=== PATIENT | female | born 1950 | race Caucasian/White ===

== ENCOUNTER → 2017-07-30 | Outpatient (CLI) | payer MEDICARE, OTHER ==
--- NOTE | 2017-07-30 13:37 | US ---
EXAMINATION TYPE: US kidneys/renal and bladder DATE OF EXAM: 07/30/2017 COMPARISON: CT February 23, 2011 and US CLINICAL HISTORY: R10.9 Alberto.flank pain, R10.9 pelvic pain. Pt states previous renal cysts, follow-up EXAM MEASUREMENTS: Right Kidney: 10.2 x 4.5 x 4.6 cm Left Kidney: 11.9 x 5.6 x 5.5 cm Right Kidney: Cortical thinning, Multicystic with largest cyst mid/ parapelvic= 1.5 x 1.0 x 1.0 cm Left Kidney: Cortical thinning/ multiple parapelvic cysts, largest= 4.2 x 2.5 x 3.5 cm Bladder: wnl Bilateral Jets seen: Yes There is no evidence for hydronephrosis at this point in time. No nephrolithiasis is seen. There are few new small simple appearing cyst centrally in the right kidney. The urinary bladder is anechoic. Bilateral ureteral jets are seen. Larger central parapelvic cyst left kidney are redemonstrated anabel icking hydronephrosis. IMPRESSION: Prominent Central left parapelvic cysts redemonstrated. No hydronephrosis is felt present bilaterally .
--- NOTE | 2017-07-30 13:42 | US ---
EXAMINATION TYPE: US pelvic complete DATE OF EXAM: 07/30/2017 COMPARISON: CT abdomen and pelvis February 23, 2011 CLINICAL HISTORY: R10.9 Alberto.flank pain, R10.9 pelvic pain. Previous ovarian cyst/ pt states bloating, pt not HRT's TECHNIQUE: Transabdominal (TA). Transabdominal sonographic images of the pelvis were acquired. Pt d id not want TV at this time Date of LMP: 20+ years ago EXAM MEASUREMENTS: Uterus: 7.0 x 3.3 x 4.3 cm Endometrial Stripe: 0.5 cm Right Ovary: 2.2 x 1.2 x 1.3 cm Left Ovary: 4.2 x 2.6 x 3.9 cm 1. Uterus: Anteverted Heterogeneous 2. Endometrium: wnl 3. Right Ovary: wnl 4. Left Ovary: Cyst= 3.0 x 2.3 x 2.7 cm 5. Bilateral Adnexa: wnl 6. Posterior cul-de-sac: wnl IMPRESSION: There is 3.0 cm simple appearing cyst left ovary identified. This is larger in size versu s prior CT. This is abnormal finding in postmenopausal female though almost certainly benign a cystic neoplasm cannot be excluded. Consider gynecology oncology referral.
== END | disposition home or self-care (01) ==
LOC: RADUSWWP 12:48
PROVIDERS: ATTEND Internal Medicine
DX: N83.292 Other ovarian cyst, left side (principal); N28.1 Cyst of kidney, acquired
CPT/HCPCS: 76770; 76856

== ENCOUNTER → 2017-08-31 | Outpatient (CLI) | payer MEDICARE, OTHER ==
--- NOTE | 2017-08-31 10:39 | XR ---
EXAM TYPE: LUMBAR SPINE X RAY SERIES COMPARISON: NONE HISTORY: Pain TECHNIQUE: 4 views are submitted. FINDINGS: Alignment is anatomic. The pedicles are intact. The transverse processes are intact. There is no s pondylolysis or spondylolisthesis. Hypertrophic and degenerative disc disease seen at virtually all levels with grade 1 anterolisthesis L4 on L5. Facet arthropathy marked at L4-5 and L5-S1. IMPRESSION: 1. Multilevel degenerative disc disease and facet arthropathy with grade 1 anterolisthesis L4 on L5. Recommend follow-up MRI.
== END | disposition home or self-care (01) ==
LOC: RADXRMAIN 10:08
PROVIDERS: ATTEND Internal Medicine
DX: M43.16 Spondylolisthesis, lumbar region (principal); M51.36 Other intervertebral disc degeneration, lumbar region; M46.96 Unspecified inflammatory spondylopathy, lumbar region
CPT/HCPCS: 72110

== ENCOUNTER → 2017-09-21 | Outpatient (CLI) | payer MEDICARE, OTHER ==
--- NOTE | 2017-09-21 15:21 | US ---
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 Hx of ectopic i n right tube with removal. Hx of left ovarian cyst. 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 Uterus: Anteverted Slightly heterogenous 2. Endometrium: wnl 3. Right Ovary: wnl 4. Left Ovary: Cystic appearing lesion = 2.9 x 2.0 x 1.8 cm 5. Bilateral Adnexa: wnl 6. Posterior cul-de-sac: no free fluid IMPRESSION: There is stable appearing 2.9 cm simple appearing cyst within left ovary. No new suspicio us lesions are seen.
--- NOTE | 2017-09-21 15:56 | US ---
EXAMINATION TYPE: US kidneys/renal and bladder DATE OF EXAM: 09/21/2017 COMPARISON: CT abdomen pelvis February 23, 2011 CLINICAL HISTORY: R10.9 Unspecified abdominal pain, R11.10 Vomiting,N83.0 Cyst. Hx of renal cysts EXAM MEASUREMENTS: Right Kidney: 10.4 x 4.5 x 4.5 cm Left Kidney: 11.0 x 5.8 x 5.8 cm Right Kidney:. Left Kidney: Multiple parapelvic cysts. Hydronephrosis vs septated parapelvic cyst at hilum = 4.8 x 3.5 x 4.1 cm Bladder: Distended, wnl as visualized Bilateral Jets seen There is no evidence for hydronephrosis at this point in time. No nephrolithiasis is seen. No himanshu s are identified. The urinary bladder is anechoic. Bilateral ureteral jets are seen. Increased cortical echogenicity in right kidney is present. There is extrarenal pelvis in right kidne y marked by technologist. Increased cortical echogenicity left kidney is identified. Prominent parape lvic cyst centrally in left kidney are again seen. Difficult to exclude left-sided hydronephrosis on background of central parapelvic cysts as there appears to be some calyceal involvement or atypical e longation. IMPRESSION: Cortical thinning bilaterally. No right-sided hydronephrosis. Probable parapelvic cysts left kidney, cannot exclude new left-sided hydronephrosis. Consider nuclear medicine functional study evaluation t o better evaluate.
== END | disposition home or self-care (01) ==
LOC: RADUSWWP 13:55
PROVIDERS: ATTEND Internal Medicine
DX: N83.202 Unspecified ovarian cyst, left side (principal); N13.30 Unspecified hydronephrosis; N28.89 Other specified disorders of kidney and ureter
CPT/HCPCS: 76770; 76856

== ENCOUNTER → 2017-10-01 | Outpatient (CLI) | payer MEDICARE, OTHER ==
--- NOTE | 2017-10-02 00:07 | MR ---
EXAMINATION TYPE: MR lumbar spine wo con DATE OF EXAM: 10/01/2017 COMPARISON: NONE HISTORY: Low back pain for years, getting worse TECHNIQUE: Multiplanar, multisequence images of the lumbar spine were acquired. Multiplanar multiecho imaging of the lumbar spine was performed with no contrast. Lumbar vertebra have normal alignment. There is slight narrowing of the disc spaces. There is no comp ression fracture. I see no focal bone destruction. There is no spinal stenosis. There are numerous re nal parapelvic cysts. There is no lumbar paraspinal mass. There is facet arthropathy with neural fora craig narrowing on the right side at the L5-S1. The visualized sacroiliac joints appear intact. I see no focal bone destruction. There are small post erior disc bulges at L2-3 L4-5 and L5-S1 without significant compromise of the spinal canal. There is developmentally adequate canal. IMPRESSION: Multilevel spondylosis. Mild right-sided L5-S1 neural foraminal impingement. No fracture.
== END | disposition home or self-care (01) ==
LOC: RADMRIMAIN 19:21
PROVIDERS: ATTEND Internal Medicine
DX: M47.816 Spondylosis without myelopathy or radiculopathy, lumbar region (principal)
CPT/HCPCS: 72148

== ENCOUNTER → 2017-11-22 | Outpatient (CLI) | payer MEDICARE, OTHER ==
--- NOTE | 2017-11-22 10:00 | US ---
EXAMINATION TYPE: US kidneys/renal and bladder DATE OF EXAM: 11/22/2017 COMPARISON: 09/21/2017 CLINICAL HISTORY: N13.30 HYDRONEPHROSIS LT SIDE. f/u previous exam, h/o renal cysts and or hydronephr osis EXAM MEASUREMENTS: Right Kidney: 11.9 x 4.5 x 5.0 cm Left Kidney: 11.7 x 5.3 x 5.9 cm Right Kidney: multiple cystic areas noted, largest was 2.8cm at renal pelvis which is stable from pre vious exam Left Kidney: appearance of hydronephrosis, unable to discern if anechoic area were multiple parapelvi c cysts as a previous exam noted, versus moderate hydronephrosis that is stable from previous exam Bladder: wnl Bilateral Jets seen: yes There is no evidence for hydronephrosis at this point in time. No nephrolithiasis is seen. No himanshu s are identified. The urinary bladder is anechoic. Bilateral ureteral jets are seen. IMPRESSION: 1. Left-sided parapelvic cysts versus hydronephrosis. Consider CT for further evaluation. 2. Multiple simple cyst right kidney.
== END | disposition home or self-care (01) ==
LOC: RADUSWWP 08:32
PROVIDERS: ATTEND Internal Medicine
DX: N28.1 Cyst of kidney, acquired (principal)
CPT/HCPCS: 76770

== ENCOUNTER → 2017-12-17 | Outpatient (CLI) | payer MEDICARE, OTHER ==
--- NOTE | 2017-12-18 13:45 | MM ---
Reason for exam: screening (asymptomatic). Last mammogram was performed 1 year and 6 months ago. History: Patient is postmenopausal. Family history of premenopausal breast cancer in sister at age 20 and breast cancer in paternal aunt at age 60. Benign US right guided mammotome of the right breast, September 06, 2007. Benign excisional biopsy of the right breast, 1989. Took hormonal contraceptives for 5 years beginning at age 19. Physical Findings: A clinical breast exam by your physician is recommended on an annual basis and results should be correlated with mammographic findings. MG 3D Screening Mammo W/Cad Bilateral CC and MLO view(s) were taken. Prior study comparison: June 09, 2016, mammogram, performed at [place]. May 26, 2015, mammogram, performed at [place]. The breast tissue is heterogeneously dense. This may lower the sensitivity of mammography. There is no discrete abnormality. No significant changes when compared with prior studies. ASSESSMENT: Benign, BI-RAD 2 RECOMMENDATION: Routine screening mammogram of both breasts in 1 year.
== END | disposition home or self-care (01) ==
LOC: RADMAMWWP 07:03
PROVIDERS: ATTEND Internal Medicine
DX: Z12.31 Encounter for screening mammogram for malignant neoplasm of breast (principal)
CPT/HCPCS: 77063; 77067

== ENCOUNTER → 2018-02-05 | Outpatient (CLI) | payer MEDICARE, OTHER ==
--- NOTE | 2018-02-05 22:18 | MR ---
EXAMINATION TYPE: MR kidney wo/w con DATE OF EXAM: 02/05/2018 COMPARISON: CT abdomen and pelvis February 23, 2011. Renal ultrasound November 22, 2017 and older ultras ound studies HISTORY: Hydronephrosis CONTRAST: Standard multiplanar, multisequence MRI departmental protocol utilizing 7.5 mL intravenous Gadavist g adolinium contrast. Imaging is performed of the abdomen focusing on bilateral kidneys. FINDINGS: Kidneys: Correlating with 2011 CT there are prominent parapelvic cysts centrally in the left kidney m imicking left-sided hydronephrosis. No definitive calyceal dilatation is seen to suggest hydronephros is. No hydroureter is present. Right kidney shows fullness of right renal pelvis with more prominent central parapelvic cysts on cur rent study versus 2011 CT. Dynamic axial images show excretion without calyceal dilatation or hydrone phrosis. There is a 8 mm simple appearing cyst upper pole of the right kidney, image 28. There is no hydroureter. Other: Lung bases remain grossly clear. The liver, gallbladder, spleen, pancreas, and both adrenal gl ands are normal in size and appear grossly unremarkable. There is stable moderate size fat-containing umbilical hernia. There is no suspicious small or large bowel dilatation. No suspicious abdominal fl uid collection or adenopathy is seen. Osseous structures are intact. IMPRESSION: Prominent left-sided parapelvic cysts are redemonstrated not significantly changed from 2011 CT. No h ydronephrosis is evident bilaterally. Central parapelvic cyst right kidney are more prominent from [address] No suspicious solid or cystic renal mass is noted.
== END | disposition home or self-care (01) ==
LOC: RADMRIMAIN 18:16
PROVIDERS: ATTEND Internal Medicine
DX: N94.89 Other specified conditions associated with female genital organs and menstrual cycle (principal)
CPT/HCPCS: 82565; 74183; 36415; A9581

== ENCOUNTER → 2018-02-13 | Outpatient (CLI) | payer MEDICARE, OTHER ==
--- NOTE | 2018-02-13 13:15 | US ---
EXAMINATION TYPE: US pelvic complete DATE OF EXAM: 02/13/2018 COMPARISON: US 09/21/2017 CLINICAL HISTORY: N83.20 Previous left ovarian cyst. F/U prev ovarian cyst TECHNIQUE: Transabdominal (TA). Transabdominal sonographic images of the pelvis were acquired. Date of LMP: 20+ yrs ago EXAM MEASUREMENTS: Uterus: 7.1 x 3.0 x 3.6 cm Endometrial Stripe: 0.6 cm Right Ovary: 2.2 x 1.9 x 1.6 cm Left Ovary: 4.0 x 3.6 x 2.8 cm 1. Uterus: Anteverted Heterogeneous 2. Endometrium: wnl 3. Right Ovary: wnl 4. Left Ovary: Cyst as seen on previous, slightly larger in size= 2.8 x 2.6 x 2.4 cm. Previous rajan urement 2.9 x 2.0 x 1.8 cm. Correlation with laboratory tests is recommended. 5. Bilateral Adnexa: wnl 6. Posterior cul-de-sac: wnl Left ovarian cyst was seen on previous IMPRESSION: 1. Enlarging left ovarian cyst. Correlation with laboratory results is recommended.
== END ==
LOC: RADUSWWP 12:08
PROVIDERS: ATTEND Obstetrics & Gynecology
DX: N83.202 Unspecified ovarian cyst, left side (principal)
CPT/HCPCS: 36415; 76856; 86304

== ENCOUNTER → 2018-03-05 | Outpatient (CLI) | payer MEDICARE, OTHER ==
--- NOTE | 2018-03-06 11:49 | BD ---
EXAMINATION TYPE: Axial Bone Density DATE OF EXAM: 03/05/2018 COMPARISON: 2006 CLINICAL HISTORY: Postmenopausal female. Osteoporosis screening. Height: 5 ft 5 in Weight: 189 FRAX RISK QUESTIONS: History of Fracture in Adulthood: YES Secondary Osteoporosis: Rheumatoid Arthritis: YES RISK FACTORS HISTORY OF: Active: YES Postmenopausal woman: AGE 49 Lost more than 2 inches in height since high school: YES MEDICATIONS: Thyroid Medications: YES Which medication: SYNTHROID How Lon YEARS Additional Medications: LITHIUM, SYNTHROID ,VIT D Additional History: EXAM MEASUREMENTS: Bone mineral densitometry was performed using the [employer] System. Bone mineral density as measured about the Lumbar spine is: ----- L1-L4(G/cm2): 1.063 T Score Values are as follows: ----- L2: -1.5 ----- L3: 0.8 ----- L4: -1.8 ----- L1-L4: -1.0 Bone mineral density has: INCREASED 1.5 % since study of: 2006 Bone mineral density about the R hip (g/cm2): 0.844 Bone mineral density about the L hip (g/cm2): 0.814 T Score values are as follows: -----R Neck: -1.4 -----L Neck: -1.6 -----R Total: -2.0 -----L Total: -1.5 Bone mineral density has: DECREASED -4.1 % since study of: 2006 IMPRESSION: Osteopenia (T Score between -2.5 and -1). There is slightly increased risk of fracture and the patient may be considered for treatment. Re-Screen 2-5 years. NOTE: T-SCORE=SD OF THE YOUNG ADULT MEAN.
== END | disposition home or self-care (01) ==
LOC: RADBDWWP 14:44
PROVIDERS: ATTEND Obstetrics & Gynecology
DX: M85.89 Other specified disorders of bone density and structure, multiple sites (principal)
CPT/HCPCS: 77080

== ENCOUNTER → 2018-04-15 | Outpatient (CLI) | payer MEDICARE, OTHER ==
[2018-04-15 08:42] LABS: Basophils % (A) 1 %; Eosinophils # (A) 0.2 k/uL (0-0.7); Eosinophils % (A) 3 %; HCT 42.3 % (34.0-46.0); HGB 13.5 gm/dL (11.4-16.0); Lymphocytes # (A) 1.1 k/uL (1.0-4.8); Lymphocytes % (A) 21 %; MCH 29.5 pg (25.0-35.0); MCHC 31.9 g/dL (31.0-37.0); MCV 92.3 fL (80.0-100.0); Mean Platelet Volume 8.6; Monocytes # (A) 0.2 k/uL (0-1.0); Monocytes % (A) 4 %; Neutrophils # (A) 3.5 k/uL (1.3-7.7); Neutrophils % (A) 70 %; Platelet Count 166 k/uL (150-450); RBC 4.59 m/uL (3.80-5.40); RDW 13.2 % (11.5-15.5); WBC 5.1 k/uL (3.8-10.6)
[2018-04-15 08:47] LABS: Calcium 9.7 mg/dL (8.4-10.2)
== END | disposition home or self-care (01) ==
LOC: LABPAT 07:52
PROVIDERS: ATTEND Obstetrics & Gynecology
DX: Z01.818 Encounter for other preprocedural examination (principal); Z01.812 Encounter for preprocedural laboratory examination
CPT/HCPCS: 36415; 80048; 85025; 86850; 86900; 86901; 93005

== ENCOUNTER 2018-04-25 05:46 | Day surgery (SDC) | payer MEDICARE, OTHER ==
[2018-04-15 14:52] VITALS: BMI 29.9
--- NOTE | 2018-04-24 20:46 | P.HPOB ---
History of Present Illness H&P Date: 04/24/18 Chief Complaint: Pelvic pain and ovarian cyst Jenni is a 67-year-old female with a persistent left ovarian cyst, she reports that she always has pain on the side of the cyst despite fact the cysts is only approximately 2-2.5 cm it has enlarged slightly since her previous ultrasound and with her having significant pains the decision to move forward with a robotic-assisted laparoscopic hysterectomy with bilateral salpingo-oophorectomy has been made. Risks/benefits also alternatives to this procedure were discussed with the patient in detail and all questions were answered for her prior to proceeding to the operative room. Risks did include but were not limited to bleeding, infection, damage to bladder or bowel, vascular injuries, nerve injuries, ureteral damage. It is noted that while her CA-125 level is normal it was very clear to her that I cannot be 100% certain that there isn't ovarian cancer present and that is certainly a risk. It was explained her that should there be ovarian cancer present it is unlikely we would complete the surgery but would most likely obtain biopsies and refer her to a JAVA LEAD ENGINEER oncologist. I did offer referral to JAVA LEAD ENGINEER oncologist alternatives to be taking her to surgery however she declined. Her primary care provider also provided surgical clearance for. Past Medical History Past Medical History: Osteoarthritis (OA), Thyroid Disorder Additional Past Medical History / Comment(s): Constipation. History of Any Multi-Drug Resistant Organisms: None Reported Additional Past Surgical History / Comment(s): Tubal . Past Anesthesia/Blood Transfusion Reactions: No Reported Reaction Past Psychological History: Anxiety, Depression Smoking Status: Never smoker Past Alcohol Use History: None Reported Past Drug Use History: None Reported - Past Family History Brother(s) Family Medical History: Cancer Sister(s) Family Medical History: Cancer Medications and Allergies Home Medications Medication Instructions Recorded Confirmed Type Levothyroxine Sodium [Synthroid] 75 mcg PO QAM 04/15/18 04/15/18 History [place] Carbonate 300 mg PO QAM 04/15/18 04/15/18 History [place] Carbonate 600 mg PO HS 04/15/18 04/15/18 History Allergies Allergy/AdvReac Type Severity Reaction Status Date / Time aspirin Allergy Itching Verified 04/15/18 14:53 codeine Allergy See Comment Verified 04/15/18 14:53 Exam Osteopathic Statement: *. No significant issues noted on an osteopathic structural exam other than those noted in the History and Physical/Consult. - OBG Physical Exam Breast: both: normal (no masses) Abdomen: bowel sounds normal, no diffuse tenderness, no bruit present, no guarding noted, no hepatomegaly, no splenomegaly, no mass Vulva: both: normal Vagina: normal moisture, no discharge Cervix: no lesion, no discharge Uterus: normal size, normal contour Adnexa: both: normal Anus/Rectum: normal perianal skin, no rectal mass, no hemorrhoids, heme negative
[~2018-04-25 05:46] MED LIST: ceFAZolin IN SWFI 2 GM/20 ML SYRINGE IVP ONE
[2018-04-25] MEDS ORDERED: ONDANSETRON 4 MG/2 ML VIAL IVP ONE (06:06)
[2018-04-25] MEDS ORDERED: SCOPOLAMINE 1.5MG/72HR PATCH TRANSDERM ONE (06:06)
[2018-04-25] MEDS ORDERED: LACTATED RINGERS 1,000 ML IV SCH (06:06)
[2018-04-25] MEDS ORDERED: LIDOCAINE 1% 20 ML VIAL (10MG/ML) FOR IV START INTRADERMA PRN (06:06)
[2018-04-25] MEDS ORDERED: DEXAMETHASONE SOD PHOSPHATE 10 MG/ML 1 ML VIAL IV ONE (06:06)
[2018-04-25] MEDS ORDERED: LACTATED RINGERS 1,000 ML IV ONE ×2 (06:19→08:51)
[2018-04-25] MEDS ORDERED: LIDOCAINE 1% INJ 10MG/ML (20 ML MDV) ONE (07:33)
[2018-04-25] MEDS ORDERED: NEOSTIGMINE 1 MG/ML 10 ML VIAL ONE (07:33)
[2018-04-25] MEDS ORDERED: MIDAZOLAM 2 MG/2 ML VIAL ONE (07:33)
[2018-04-25] MEDS ORDERED: GLYCOPYRROLATE 0.2 MG/ML 2 ML VIAL ONE (07:33)
[2018-04-25] MEDS ORDERED: ROCURONIUM BROMIDE 10 MG/ML 10 ML VIAL IV ONE (07:33)
[2018-04-25] MEDS ORDERED: ePHEDrine SULFATE/0.9% NACL/PF 50 MG/5 ML SYRINGE IV ONE (07:33)
[2018-04-25] MEDS ORDERED: PROPOFOL 10 MG/ML 20 ML VIAL IV ONE (07:33)
[2018-04-25] MEDS ORDERED: fentaNYL (PF) 50 MCG/ML 2 ML AMP ONE (07:33)
[2018-04-25] MEDS ORDERED: SUCCINYLCHOLINE CHLORIDE 100 MG/5 ML SYR IV ONE (07:33)
[2018-04-25] MEDS ORDERED: BUPIVACAINE (PF) 0.25% 30 ML VIAL SQ ONE ×2 (07:56→08:53)
[2018-04-25] MEDS ORDERED: Acetaminophen-Codeine 300-30mg TAB PO PRN ×2 (09:07)
[2018-04-25] MEDS ORDERED: SIMETHICONE 80 MG CHEWABLE PO PRN (09:07)
[2018-04-25] MEDS ORDERED: diphenhydrAMINE 25 MG CAP PO PRN (09:07)
[2018-04-25] MEDS ORDERED: ONDANSETRON 4 MG/2 ML VIAL IVP PRN (09:07)
--- NOTE | 2018-04-25 09:14 | P.OP ---
Date of Procedure: 04/25/18 Preoperative Diagnosis: Pelvic pain and ovarian cyst Postoperative Diagnosis: Same Procedure(s) Performed: Robotic-assisted laparoscopic hysterectomy with bilateral salpingo-oophorectomy Anesthesia: ALEJANDRINA Surgeon: Michael Kyle Weight Loss Consultant #1: Adelina Webster Estimated Blood Loss (ml): 10 IV fluids (ml): 600 Urine output (ml): 350 Pathology: other (Uterus, cervix, fallopian tubes, ovaries) Condition: stable Disposition: floor Operative Findings: Tissue pathology pending Description of Procedure: Patient was taken to the operating suite where a general anesthetic was found be adequate. She was prepped and draped in the normal sterile fashion and placed in the dorsal lithotomy position. Initially a speculum was inserted into the vagina and the anterior lip of cervix identified and grasped with a single-tooth tenaculum. Uterus was then sounded to 8 cm and cup size was 2.5 cm Michaela manipulator was then inserted without difficulty with sutures placed at 3 and 9 for assistance in removal. Once Michaela was positioned a Franklin catheter was placed and gloves were changed. Attention was then turned to the abdominal portion of the procedure where 2 mL of quarter percent Marcaine was injected periumbilically. Through this injected anesthetic a 5 mm skin incision was made and through this incision under direct visualization with an optical trocar and sleeve the camera was inserted. Once peritoneal placement was assured gas was allowed to fully insufflate the abdomen and patient was then placed in steep Trendelenburg position. 2 lateral ports were then placed 10 cm lateral to the umbilicus these were through 8 mm skin incisions and da Radhika ports and sleeves were inserted. Once this was accomplished 81 cm incision was made between the left lateral and the medial ports slightly superior to the medial port. A 1 cm trocar and sleeve were inserted and then the camera port was exchanged for robotic port. Robot was then brought in and docked and all laparoscopic equipment was removed. Once the robot was fully docked I did break scrub and go to the console with a scissor and the one arm and a [place] grasper in the 2 arm uterus was elevated and tipped to the left to the right side and the infundibulopelvic ligament was identified cauterized and transected and then the mesosalpinx/paraovarian tissues were cauterized and transected all the way to the round ligament. Round ligament was then and anterior posterior leafs the broad ligament were developed. Cauterization of the uterine vascularity on the left side was then performed and undermining of bladder flap was then done using the [place] undermining in the scissor to incise the tissue across face uterus bladder was then bluntly dissected out of the operative field. Once this was completed in a similar fashion the right side of the ovary and uterus were developed in a similar fashion. Once this was accomplished and the bladder was dissected fully out of the operative field the cup was identified and an anterior colpotomy was made once this was made moving in a counterclockwise fashion cheating head when necessary surgery to maintain excellent hemostasis we follow the couple around incising around the cervix into the vagina vagina until 3 and 60 was performed and the uterus and cervix and vagina were . Uterus was then brought into the vagina to maintain pneumoperitoneum. No bleeding is noted on any of the pedicles therefore instruments were removed exchanged for Tobias grasper and a make suture cut and using to OB lock suture the vaginal cuff was repaired in a running fashion. Once this was accomplished pelvis was irrigated and this fluid was then suctioned out no bleeding is noted. At this point robotic instruments were removed gas was allowed to expel from the abdomen and [address] deep [address] were provided. Dr. Webster and close the incision subcuticularly with 4- 0 Vicryl and I did do a cystoscopy with excellent flow noted from both ureteral jets. There is no blood noted in the bladder. Urine is clear. At the conclusion I did receive a phone call relating that there is some pink to the urine, however I suspect this is from replacement of the Franklin catheter as there was no bleeding during cystoscopy. Sponge, lap, needle counts all correct 2. Patient was then taken to the recovery room in stable and satisfactory condition.
[2018-04-25] MEDS: HYDROmorphone 1 MG/ML 1 ML SYRINGE IVP PRN ×2 (10:09→10:14)
[2018-04-25] MEDS: KETOROLAC 30 MG/ML 1 ML VIAL IVP PRN ×2 (17:34→23:19)
[2018-04-25 19:59] VITALS: RESP 16
[2018-04-25] MEDS ORDERED: SENNOSIDES-DOCUSATE SODIUM 1 EACH TAB PO SCH (21:00)
[2018-04-26 03:38] VITALS: BP 107/69; PULSE 70; TEMP 97.7
[2018-04-26] MEDS: KETOROLAC 30 MG/ML 1 ML VIAL IVP PRN (05:12)
[2018-04-26 07:10] LABS: Basophils % (A) 0 %; Eosinophils # (A) 0.1 k/uL (0-0.7); Eosinophils % (A) 0 %; HCT 37.9 % (34.0-46.0); HGB 12.4 gm/dL (11.4-16.0); Lymphocytes # (A) 1.6 k/uL (1.0-4.8); Lymphocytes % (A) 14 %; MCHC 32.8 g/dL (31.0-37.0); MCV 91.7 fL (80.0-100.0); Mean Platelet Volume 8.6; Monocytes # (A) 0.5 k/uL (0-1.0); Monocytes % (A) 4 %; Neutrophils # (A) 9.2 k/uL (1.3-7.7); Neutrophils % (A) 80 %; Platelet Count 156 k/uL (150-450); RBC 4.13 m/uL (3.80-5.40); RDW 13.2 % (11.5-15.5); WBC 11.5 k/uL (3.8-10.6)
--- NOTE | 2018-04-26 09:02 | P.DS ---
Providers Expected date of discharge: 04/26/18 Attending physician: Michael Kyle Primary care physician: [facility] Course: She'll is doing very well postop day 1. She is ambulating, voiding and she is tolerating her diet. She voices no complaints and is requesting discharge to home. A prescription for high-dose Motrin has been sent to the pharmacy as she does not want any narcotics to go home with her. Vital signs are stable and afebrile. Heart regular, lungs clear, extremities are without pain. Abdomen is soft positive bowel sounds are noted in her incisions are intact. Assessment postop day 1. Plan discharged home follow up with me in 1 week. All other questions are answered for her and she is aware to have complete pelvic rest for next 6-8 weeks. Patient Condition at Discharge: Good Plan - Discharge Summary Discharge Rx Participant: No New Discharge Prescriptions: New Ibuprofen [Motrin] 600 mg PO Q6HR PRN #30 tab PRN Reason: Pain No Action Levothyroxine Sodium [Synthroid] 75 mcg PO QAM [place] Carbonate 300 mg PO QAM [place] Carbonate 600 mg PO HS Discharge Medication List Levothyroxine Sodium [Synthroid] 75 mcg PO QAM 04/15/18 [History] [place] Carbonate 300 mg PO QAM 04/15/18 [History] [place] Carbonate 600 mg PO HS 04/15/18 [History] Ibuprofen [Motrin] 600 mg PO Q6HR PRN #30 tab 04/26/18 [Rx] Follow up Appointment(s)/Referral(s): Michael Kyle DO [Doctor of Osteopathic Medicine] - 1 Week Activity/Diet/Wound Care/Special Instructions: No heavy lifting, the stairs and driving, and pelvic rest. If any high temperatures, heavy bleeding, or severe pain call my office Discharge Disposition: HOME SELF-CARE
== END 2018-04-26 09:55 | disposition home or self-care (01) ==
LOC: OR 05:46 → 4FBP 09:11 → OR 04-26 09:55
PROVIDERS: ATTEND Obstetrics & Gynecology
DX: R10.2 Pelvic and perineal pain (principal); N83.292 Other ovarian cyst, left side; F32.9 Major depressive disorder, single episode, unspecified; F31.9 Bipolar disorder, unspecified; E55.9 Vitamin D deficiency, unspecified; M85.80 Other specified disorders of bone density and structure, unspecified site; K21.9 Gastro-esophageal reflux disease without esophagitis; E03.9 Hypothyroidism, unspecified; Z80.3 Family history of malignant neoplasm of breast; Z79.890 Hormone replacement therapy; Z79.899 Other long term (current) drug therapy; Z88.6 Allergy status to analgesic agent; Z88.5 Allergy status to narcotic agent
CPT/HCPCS: 58552; 85025; 88307; J2250; J1100; J2710; J2405; J2001; J3010; J1885 ×2; J1170; J0330; J2704; J0690; 86850; 86900; 86901

== ENCOUNTER → 2019-01-10 | Outpatient (CLI) | payer MEDICARE, OTHER ==
--- NOTE | 2019-01-14 09:26 | MM ---
Reason for exam: screening (asymptomatic). Last mammogram was performed 1 year and 1 month ago. History: Patient is postmenopausal. Family history of premenopausal breast cancer in sister at age 20 and breast cancer in paternal aunt at age 60. Benign US right guided mammotome of the right breast, September 06, 2007. Benign excisional biopsy of the right breast, 1989. Took hormonal contraceptives for 5 years beginning at age 19. Physical Findings: A clinical breast exam by your physician is recommended on an annual basis and results should be correlated with mammographic findings. MG 3D Screening Mammo W/Cad Bilateral CC and MLO view(s) were taken. Prior study comparison: December 17, 2017, bilateral MG 3d screening mammo w/cad. June 09, 2016, mammogram, performed at [place]. The breast tissue is heterogeneously dense. This may lower the sensitivity of mammography. Previous mammotome biopsy in the right breast. No significant changes when compared with prior studies. ASSESSMENT: Negative, BI-RAD 1 RECOMMENDATION: Routine screening mammogram of both breasts in 1 year.
== END | disposition home or self-care (01) ==
LOC: RADMAMWWP 12:12
PROVIDERS: ATTEND Internal Medicine
DX: Z12.31 Encounter for screening mammogram for malignant neoplasm of breast (principal)
CPT/HCPCS: 77063; 77067

== ENCOUNTER 2019-06-11 08:07 | Day surgery (SDC) | payer MEDICARE, OTHER ==
[2019-06-09 13:21] VITALS: BMI 29.4
[~2019-06-11 08:07] MED LIST changes: +LACTATED RINGERS 1,000 ML IV SCH; +LIDOCAINE 1% 20 ML VIAL (10MG/ML) FOR IV START INTRADERMA PRN; -ceFAZolin IN SWFI 2 GM/20 ML SYRINGE IVP ONE
[2019-06-11 08:42] VITALS: RESP 16; TEMP 97.9
[2019-06-11] MEDS ORDERED: PROPOFOL 10 MG/ML 20 ML VIAL IV ONE (08:51)
--- NOTE | 2019-06-11 09:12 | P.PCN ---
Date of Procedure: 06/11/19 Procedure(s) Performed: BRIEF HISTORY: Patient is a 69-year-old pleasant female scheduled for an elective colonoscopy as a part of value should of intermittent rectal bleeding and prior history of colon polyps. PROCEDURE PERFORMED: Colonoscopy With snare polypectomy PREOPERATIVE DIAGNOSIS: Intermittent rectal bleeding and prior history of colon polyps. IV sedation per Anesthesia. PROCEDURE: After informed consent was obtained, the patient, was brought into the endoscopy unit. IV sedation was administered by Anesthesia under continuous monitoring. Digital rectal examination was normal. Initially the Olympus CF-160 flexible video colonoscope was then inserted in the rectum, gradually advanced into the cecum without any difficulty. Careful examination was performed as the scope was gradually being withdrawn. Ileocecal valve and the appendiceal orifice were visualized and appeared normal. Prep was excellent. Mucosa of the cecum, ascending colon, appeared normal. In the transverse colon there were 3 polyps measuring 5 limited size all of which were removed by snare polypectomy. In the descending colon there were 4 mm and 5 mm sessile polyps removed by snare polypectomy. In the sigmoid colon there was a 1 cm broad-based polyp removed by snare polypectomy. Rest of the transverse colon, descending colon, sigmoid colon, and rectum appeared normal. Retroflexion was performed in the rectum and small internal hemorrhoids ere seen. The patient tolerated the procedure well. IMPRESSION: 5 mm 3 transverse colon polyp status post polypectomy 1 cm broad-based based sigmoid colon polyp status post polypectomy 5 mm 2 descending colon polyps status post polypectomy Scattered sigmoid diverticulosis. Small internal hemorrhoids RECOMMENDATIONS: Findings of this examination were discussed with the patient as well as a family. She was advised to follow with the biopsy results. If the biopsy reveals adenoma she can have a repeat colonoscopy in 3 years
[2019-06-11 09:36] VITALS: BP 128/78; PULSE 72
== END 2019-06-11 10:12 | disposition home or self-care (01) ==
LOC: ORWHC2ENDO 08:07
PROVIDERS: ATTEND Internal Medicine Gastroenterology
DX: D12.4 Benign neoplasm of descending colon (principal); D12.5 Benign neoplasm of sigmoid colon; D12.3 Benign neoplasm of transverse colon; K57.31 Diverticulosis of large intestine without perforation or abscess with bleeding; K64.8 Other hemorrhoids; Z86.010 Personal history of colon polyps; E07.9 Disorder of thyroid, unspecified; F34.1 Dysthymic disorder; Z79.890 Hormone replacement therapy; Z79.899 Other long term (current) drug therapy; Z88.6 Allergy status to analgesic agent; Z88.5 Allergy status to narcotic agent
CPT/HCPCS: 88305; 45385; J2704

== ENCOUNTER 2019-07-14 10:07 | Observation (INO) | payer MEDICARE, OTHER ==
[2019-07-14] MEDS ORDERED: KETOROLAC 30 MG/ML 1 ML VIAL IVP STA (10:28)
[2019-07-14] MEDS ORDERED: SODIUM CHLORIDE 0.9% 500 ML 500 ML IV STA (10:28)
[2019-07-14 10:54] LABS: Basophils # (A) 0.1 k/uL (0-0.2); Basophils % (A) 1 %; Eosinophils # (A) 0.2 k/uL (0-0.7); Eosinophils % (A) 1 %; HCT 44.5 % (34.0-46.0); HGB 13.9 gm/dL (11.4-16.0); Lymphocytes # (A) 1.1 k/uL (1.0-4.8); Lymphocytes % (A) 8 %; MCH 28.2 pg (25.0-35.0); MCHC 31.1 g/dL (31.0-37.0); MCV 90.4 fL (80.0-100.0); Mean Platelet Volume 9.4; Monocytes # (A) 0.4 k/uL (0-1.0); Monocytes % (A) 3 %; Neutrophils # (A) 12.5 k/uL (1.3-7.7); Neutrophils % (A) 87 %; Platelet Count 162 k/uL (150-450); RBC 4.92 m/uL (3.80-5.40); RDW 13.2 % (11.5-15.5); WBC 14.5 k/uL (3.8-10.6)
[2019-07-14 10:59] LABS: Mucus,Urine Rare /hpf; Squamous Epithelial Cell,Urine 1 /hpf (0-4); WBC,Urine 7 /hpf (0-5)
[2019-07-14 11:01] LABS: ALT 36 U/L (4-34); AST 32 U/L (14-36); African American GFR (CKD) >90 (>60 ml/min/1.73 sqM); Albumin 4.4 g/dL (3.5-5.0); Alkaline Phosphatase 94 U/L (38-126); Amylase 81 U/L (30-110); Anion Gap 6 mmol/L; Appearance,Urine Clear (Clear); Blood Urea Nitrogen 12 mg/dL (7-17); Calcium 9.3 mg/dL (8.4-10.2); Carbon Dioxide 26 mmol/L (22-30); Chloride 107 mmol/L (98-107); Color,Urine Colorless; Glucose 101 mg/dL (74-99); Non-African American GFR(CKD) 78 (>60 ml/min/1.73 sqM); Sodium 139 mmol/L (137-145); Specific Gravity,Urine 1.005 (1.001-1.035); Total Bilirubin 0.7 mg/dL (0.2-1.3); Total Protein 7.2 g/dL (6.3-8.2)
[2019-07-14 11:02] LABS: Bilirubin,Urine Negative (Negative); Blood,Urine Negative (Negative); Glucose,Urine (UA) Negative (Negative); Ketones,Urine Negative (Negative); Leukocyte Esterase,Urine Large (Negative); Nitrite,Urine Negative (Negative); Protein,Urine Negative (Negative); Urobilinogen,Urine <2.0 mg/dL (<2.0)
--- NOTE | 2019-07-14 11:12 | ED ---
Abdominal Pain HPI - General Chief Complaint: Abdominal Pain Stated Complaint: Abdominal Pain Time Seen by Provider: 07/14/19 10:15 Source: patient, RN notes reviewed Mode of arrival: ambulatory Limitations: no limitations - History of Present Illness Initial Comments: 69-year-old female presents emergency Department with chief complaint of lower abdominal pain. Patient states started over the last couple days. States that she was up all night because his symptoms. She has had slight urinary frequency no dysuria no diarrhea constipation. Patient had a prior hysterectomy approximately one year ago. Denies fever, chills, flank pain no chest pain or shortness breath. - Related Data Home Medications Medication Instructions Recorded Confirmed Levothyroxine Sodium [Synthroid] 75 mcg PO QAM 04/15/18 06/09/19 [place] Carbonate 300 mg PO QAM 04/15/18 06/09/19 [place] Carbon[place] 600 mg PO HS 04/15/18 06/09/19 Ergocalciferol [Vitamin D2] 50,000 unit PO Q7D 06/09/19 06/09/19 Allergies Allergy/AdvReac Type Severity Reaction Status Date / Time aspirin Allergy Itching Verified 06/11/19 08:36 codeine Allergy See Comment Verified 06/11/19 08:36 Review of Systems ROS Statement: Those systems with pertinent positive or pertinent negative responses have been documented in the HPI. ROS Other: All systems not noted in ROS Statement are negative. Past Medical History Past Medical History: Osteoarthritis (OA), Thyroid Disorder Additional Past Medical History / Comment(s): Constipation. Hx colon polyps. History of Any Multi-Drug Resistant Organisms: None Reported Past Surgical History: Hysterectomy Additional Past Surgical History / Comment(s): Tubal . Colonoscopy. Past Anesthesia/Blood Transfusion Reactions: No Reported Reaction Past Psychological History: Anxiety, Depression Smoking Status: Never smoker Past Alcohol Use History: None Reported Past Drug Use History: None Reported - Past Family History Brother(s) Family Medical History: Cancer Additional Family Medical History / Comment(s): Esophagus CA Sister(s) Family Medical History: Cancer Additional Family Medical History / Comment(s): Colon CA General Exam Limitations: no limitations General appearance: alert, in no apparent distress Head exam: Present: atraumatic, normocephalic, normal inspection Neck exam: Present: normal inspection. Absent: tenderness, meningismus, lymphadenopathy Respiratory exam: Present: normal lung sounds bilaterally. Absent: respiratory distress, wheezes, rales, rhonchi, stridor Cardiovascular Exam: Present: regular rate, normal rhythm, normal heart sounds. Absent: systolic murmur, diastolic murmur, rubs, gallop, clicks GI/Abdominal exam: Present: soft, tenderness, normal bowel sounds. Absent: distended, guarding, rebound, rigid Back exam: Absent: CVA tenderness (R), CVA tenderness (L) Skin exam: Present: warm, dry, intact, normal color. Absent: rash Course Vital Signs 07/14/19 10:10 Temperature 98.1 F Pulse Rate 70 Respiratory 16 Rate Blood Pressure 130/76 O2 Sat by Pulse 99 Oximetry Medical Decision Making - Medical Decision Making 69-year-old female presented lower abdominal pain. CT shows evidence of dilated appendix and some fat stranding. Patient is tender in the right lower quadrant. Patient case discussed with Dr. Colindres who patient will be admitted for acute appendicitis - Lab Data Result diagrams: 07/14/19 10:35 07/14/19 10:35 Lab Results 07/14/19 07/14/19 07/14/19 Range/Units 10:35 10:35 10:35 WBC 14.5 H (3.8-10.6) k/uL RBC 4.92 (3.80-5.40) m/uL Hgb 13.9 (11.4-16.0) gm/dL Hct 44.5 (34.0-46.0) % MCV 90.4 (80.0-100.0) fL MCH 28.2 (25.0-35.0) pg MCHC 31.1 (31.0-37.0) g/dL RDW 13.2 (11.5-15.5) % Plt Count 162 (150-450) k/uL Neutrophils % 87 % Lymphocytes % 8 % Monocytes % 3 % Eosinophils % 1 % Basophils % 1 % Neutrophils # 12.5 H (1.3-7.7) k/uL Lymphocytes # 1.1 (1.0-4.8) k/uL Monocytes # 0.4 (0-1.0) k/uL Eosinophils # 0.2 (0-0.7) k/uL Basophils # 0.1 (0-0.2) k/uL Sodium 139 (137-145) mmol/L Potassium 4.0 (3.5-5.1) mmol/L Chloride 107 (98-107) mmol/L Carbon Dioxide 26 (22-30) mmol/L Anion Gap 6 mmol/L BUN 12 (7-17) mg/dL Creatinine 0.77 (0.52-1.04) mg/dL Est GFR (CKD-EPI)AfAm >90 (>60 ml/min/1.73 sqM) Est GFR (CKD-EPI)NonAf 78 (>60 ml/min/1.73 sqM) Glucose 101 H (74-99) mg/dL Plasma Lactic Acid Isidro 1.3 (0.7-2.0) mmol/L Calcium 9.3 (8.4-10.2) mg/dL Total Bilirubin 0.7 (0.2-1.3) mg/dL AST 32 (14-36) U/L ALT 36 H (4-34) U/L Alkaline Phosphatase 94 (38-126) U/L Total Protein 7.2 (6.3-8.2) g/dL Albumin 4.4 (3.5-5.0) g/dL Amylase 81 (30-110) U/L Lipase 56 (23-300) U/L Urine Color Urine Appearance (Clear) Urine pH (5.0-8.0) Ur Specific [place] (1.001-1.035) Urine Protein (Negative) Urine Glucose (UA) (Negative) Urine Ketones (Negative) Urine Blood (Negative) Urine Nitrite (Negative) Urine Bilirubin (Negative) Urine Urobilinogen (<2.0) mg/dL Ur Leukocyte Esterase (Negative) Urine WBC (0-5) /hpf Ur Squamous Epith Cells (0-4) /hpf Urine Mucus (None) /hpf 07/14/19 Range/Units 10:35 WBC (3.8-10.6) k/uL RBC (3.80-5.40) m/uL Hgb (11.4-16.0) gm/dL Hct (34.0-46.0) % MCV (80.0-100.0) fL MCH (25.0-35.0) pg MCHC (31.0-37.0) g/dL RDW (11.5-15.5) % Plt Count (150-450) k/uL Neutrophils % % Lymphocytes % % Monocytes % % Eosinophils % % Basophils % % Neutrophils # (1.3-7.7) k/uL Lymphocytes # (1.0-4.8) k/uL Monocytes # (0-1.0) k/uL Eosinophils # (0-0.7) k/uL Basophils # (0-0.2) k/uL Sodium (137-145) mmol/L Potassium (3.5-5.1) mmol/L Chloride (98-107) mmol/L Carbon Dioxide (22-30) mmol/L Anion Gap mmol/L BUN (7-17) mg/dL Creatinine (0.52-1.04) mg/dL Est GFR (CKD-EPI)AfAm (>60 ml/min/1.73 sqM) Est GFR (CKD-EPI)NonAf (>60 ml/min/1.73 sqM) Glucose (74-99) mg/dL Plasma Lactic Acid Isidro (0.7-2.0) mmol/L Calcium (8.4-10.2) mg/dL Total Bilirubin (0.2-1.3) mg/dL AST (14-36) U/L ALT (4-34) U/L Alkaline Phosphatase (38-126) U/L Total Protein (6.3-8.2) g/dL Albumin (3.5-5.0) g/dL Amylase (30-110) U/L Lipase (23-300) U/L Urine Color Colorless Urine Appearance Clear (Clear) Urine pH 7.0 (5.0-8.0) Ur Specific [place] 1.005 (1.001-1.035) Urine Protein Negative (Negative) Urine Glucose (UA) Negative (Negative) Urine Ketones Negative (Negative) Urine Blood Negative (Negative) Urine Nitrite Negative (Negative) Urine Bilirubin Negative (Negative) Urine Urobilinogen <2.0 (<2.0) mg/dL Ur Leukocyte Esterase Large (Negative) Urine WBC 7 H (0-5) /hpf Ur Squamous Epith Cells 1 (0-4) /hpf Urine Mucus Rare H (None) /hpf Disposition Clinical Impression: Acute appendicitis Disposition: ADMITTED IP TO THIS [facility] Condition: Fair Referrals: Miley Carbone MD [Primary Care Provider] - 1-2 days
--- NOTE | 2019-07-14 11:41 | CT ---
EXAMINATION TYPE: CT abdomen pelvis w con DATE OF EXAM: 07/14/2019 COMPARISON: 02/23/2011 HISTORY: epigastric pain CT DLP: 1356.6 mGycm CONTRAST: CT scan of the abdomen and pelvis is performed without Oral Contrast and with IV Contrast, patient in jected with 100 mL of Isovue 300. FINDINGS: LUNG BASES-: No visible nodule. No infiltrate. LIVER/GB: No calcified gallstones. No space occupying hepatic lesion. Biliary tree is of normal ca liber. PANCREAS: No inflammation. No distinct mass. SPLEEN: No splenic enlargement. No lesion seen. ADRENALS: No nodule. No thickening. KIDNEYS/BLADDER: No hydronephrosis. No nephrolithiasis. Multiple bilateral parapelvic renal cysts n oted. Urinary bladder grossly unremarkable. BOWEL: The appendix measures 7 mm however there appears to be mild periappendiceal stranding and poss ibly a tiny focal appendicolith. Correlate for mild changes of early acute appendicitis. Normal veronica l caliber. GENITAL ORGANS: No gross abnormality. LYMPH NODES: No greater than 1cm abdominal or pelvic lymph nodes are appreciated. AORTA: No significant abnormality. OSSEOUS STRUCTURES: No significant abnormality is seen. OTHER: No significant additional abnormality is seen. IMPRESSION: 1. The appendix measures 7 mm however there appears to be mild periappendiceal stranding and possibly a tiny focal appendicolith. Correlate for mild changes of early acute appendicitis.
[2019-07-14] MEDS ORDERED: PIPERACILLIN-TAZOBACTAM 3.375 GM in SODIUM CHLORIDE 0.9% 100 ML IVPB STA (11:47)
[2019-07-14] MEDS ORDERED: ONDANSETRON 4 MG/2 ML VIAL IVP PRN ×2 (11:49→11:53)
[2019-07-14] MEDS ORDERED: NALOXONE 0.4 MG/ML 1 ML VIAL IV PRN (11:49)
[2019-07-14] MEDS ORDERED: HYDROmorphone 0.5 MG/0.5 ML SYRINGE IVP PRN (12:08)
[2019-07-14] MEDS: SODIUM CHLORIDE 0.9% 1,000 ML IV SCH ×2 (12:09→15:02)
[2019-07-14] MEDS ORDERED: ACETAMINOPHEN TAB 325 MG TAB PO PRN (12:09)
--- NOTE | 2019-07-14 12:09 | P.GSHP ---
History of Present Illness H&P Date: 07/14/19 Chief Complaint: Abdominal pain CHIEF COMPLAINT: Abdominal pain HISTORY OF PRESENT ILLNESS: 69-year-old female presented to the emergency room with a chief complaint of abdominal pain. She reports the pain has been present for approximately 48 hours. She denies diarrhea or constipation. Denies fever or chills. She reports the pain is localized to the right lower quadrant. PAST MEDICAL HISTORY: See list. PAST SURGICAL HISTORY: See list. SOCIAL HISTORY: No illicit drug use. REVIEW OF SYSTEMS: CONSTITUTIONAL: Denies fever or chills. HEENT: Denies blurred vision, vision changes, or eye pain. Denies hemoptysis CARDIOVASCULAR: Denies chest pain or pressure. RESPIRATORY: No shortness of breath. GASTROINTESTINAL: Refer to HPI for pertinent findings HEMATOLOGIC: Denies bleeding disorders. GENITOURINARY: Denies any blood in urine. SKIN: Denies pruitis. Denies rash. PHYSICAL EXAM: VITAL SIGNS: Reviewed. GENERAL: Well-developed in no acute distress. HEENT: No sclera icterus. Extraocular movements grossly intact. Moist buccal mucosa. Head is atraumatic, normocephalic. ABDOMEN: Soft. Nondistended. Tenderness upon palpation of right lower quadrant. NEUROLOGIC: Alert and oriented. Cranial nerves II through XII grossly intact. LABORATORY DATA: WBC 14.5. Hemoglobin 13.9. Platelet count 162. IMAGING: CT abdomen and pelvis: Appendix measures 7 mm. Mild periappendiceal stranding and possibly a tiny focal appendicolith. Correlate for early acute appendicitis ASSESSMENT: 1. Abdominal pain 2. Acute appendicitis PLAN: Nothing by mouth. Continue IV fluids. Monitor WBC. Continue IV antibiotics. Patient to undergo laparoscopic appendectomy today with Dr. Colindres. Nurse practitioner note has been reviewed by physician. Signing provider agrees with the documented findings, assessment, and plan of care. Past Medical History Past Medical History: Osteoarthritis (OA), Thyroid Disorder Additional Past Medical History / Comment(s): Constipation. Hx colon polyps. History of Any Multi-Drug Resistant Organisms: None Reported Past Surgical History: Hysterectomy Additional Past Surgical History / Comment(s): Tubal . Colonoscopy. Past Anesthesia/Blood Transfusion Reactions: No Reported Reaction Past Psychological History: Anxiety, Depression Smoking Status: Never smoker Past Alcohol Use History: None Reported Past Drug Use History: None Reported - Past Family History Brother(s) Family Medical History: Cancer Additional Family Medical History / Comment(s): Esophagus CA Sister(s) Family Medical History: Cancer Additional Family Medical History / Comment(s): Colon CA Medications and Allergies Home Medications Medication Instructions Recorded Confirmed Type Levothyroxine Sodium [Synthroid] 75 mcg PO QAM 04/15/18 07/14/19 History [place] Carbonate 300 mg PO QAM 04/15/18 07/14/19 History [place] Carbonate 600 mg PO HS 04/15/18 07/14/19 History Ergocalciferol [Vitamin D2] 50,000 unit PO FR 06/09/19 07/14/19 History Allergies Allergy/AdvReac Type Severity Reaction Status Date / Time aspirin Allergy Itching Verified 07/14/19 11:51 alendronate sodium AdvReac Tooth Decay Verified 07/14/19 11:53 [From Fosamax] codeine AdvReac "Makes me Verified 07/14/19 11:51 feel off balance" Surgical - Exam Vital Signs Temp Pulse Resp BP Pulse Ox 98.1 F 70 16 130/76 99 07/14/19 10:10 07/14/19 10:10 07/14/19 10:10 07/14/19 10:10 07/14/19 10:10 Results - Labs 07/14/19 10:35 07/14/19 10:35 Abnormal Lab Results - Last 24 Hours (Table) 07/14/19 07/14/19 07/14/19 Range/Units 10:35 10:35 10:35 WBC 14.5 H (3.8-10.6) k/uL Neutrophils # 12.5 H (1.3-7.7) k/uL Glucose 101 H (74-99) mg/dL ALT 36 H (4-34) U/L Urine WBC 7 H (0-5) /hpf Urine Mucus Rare H (None) /hpf Diabetes panel 07/14/19 Range/Units 10:35 Sodium 139 (137-145) mmol/L Potassium 4.0 (3.5-5.1) mmol/L Chloride 107 (98-107) mmol/L Carbon Dioxide 26 (22-30) mmol/L BUN 12 (7-17) mg/dL Creatinine 0.77 (0.52-1.04) mg/dL Glucose 101 H (74-99) mg/dL Calcium 9.3 (8.4-10.2) mg/dL AST 32 (14-36) U/L ALT 36 H (4-34) U/L Alkaline Phosphatase 94 (38-126) U/L Total Protein 7.2 (6.3-8.2) g/dL Albumin 4.4 (3.5-5.0) g/dL Calcium panel 07/14/19 Range/Units 10:35 Calcium 9.3 (8.4-10.2) mg/dL Albumin 4.4 (3.5-5.0) g/dL Pituitary panel 07/14/19 Range/Units 10:35 Sodium 139 (137-145) mmol/L Potassium 4.0 (3.5-5.1) mmol/L Chloride 107 (98-107) mmol/L Carbon Dioxide 26 (22-30) mmol/L BUN 12 (7-17) mg/dL Creatinine 0.77 (0.52-1.04) mg/dL Glucose 101 H (74-99) mg/dL Calcium 9.3 (8.4-10.2) mg/dL Adrenal panel 07/14/19 Range/Units 10:35 Sodium 139 (137-145) mmol/L Potassium 4.0 (3.5-5.1) mmol/L Chloride 107 (98-107) mmol/L Carbon Dioxide 26 (22-30) mmol/L BUN 12 (7-17) mg/dL Creatinine 0.77 (0.52-1.04) mg/dL Glucose 101 H (74-99) mg/dL Calcium 9.3 (8.4-10.2) mg/dL Total Bilirubin 0.7 (0.2-1.3) mg/dL AST 32 (14-36) U/L ALT 36 H (4-34) U/L Alkaline Phosphatase 94 (38-126) U/L Total Protein 7.2 (6.3-8.2) g/dL Albumin 4.4 (3.5-5.0) g/dL
[2019-07-14] MEDS ORDERED: IV FLUID CONTINUATION 1,000 ML IV ONE ×2 (12:33)
[2019-07-14] MEDS ORDERED: MIDAZOLAM 2 MG/2 ML VIAL ONE (12:57)
[2019-07-14] MEDS ORDERED: PROPOFOL 10 MG/ML 20 ML VIAL IV ONE (12:57)
[2019-07-14] MEDS ORDERED: ROCURONIUM BROMIDE 10 MG/ML 5 ML VIAL IV ONE (12:57)
[2019-07-14] MEDS ORDERED: SUCCINYLCHOLINE CHLORIDE 100 MG/5 ML SYR IV ONE (12:57)
[2019-07-14] MEDS ORDERED: ONDANSETRON 4 MG/2 ML VIAL ONE (12:57)
[2019-07-14] MEDS ORDERED: GLYCOPYRROLATE 0.2 MG/ML 2 ML VIAL ONE (12:57)
[2019-07-14] MEDS ORDERED: NEOSTIGMINE 1 MG/ML 10 ML VIAL ONE (12:57)
[2019-07-14] MEDS ORDERED: fentaNYL (PF) 50 MCG/ML 2 ML AMP ONE (12:57)
[2019-07-14] MEDS ORDERED: SODIUM CHLORIDE 0.9% 50 ML with ceFAZolin 2,000 MG IV ONE ×2 (13:00)
[2019-07-14] MEDS ORDERED: BUPIVACAIN-EPI 0.5%-1:200,000 30 ML VIAL SQ ONE (13:17)
--- NOTE | 2019-07-14 13:50 | P.OP ---
Date of Procedure: 07/14/19 Preoperative Diagnosis: Appendicitis Postoperative Diagnosis: Appendicitis Procedure(s) Performed: Laparoscopic appendectomy Anesthesia: ALEJANDRINA Surgeon: Marco A Colindres Estimated Blood Loss (ml): 5 Pathology: other (Appendix) Condition: stable Disposition: PACU Description of Procedure: Harmonic appendectomy
[2019-07-14] MEDS ORDERED: HYDROmorphone 0.5 MG/0.5 ML SYRINGE IVP ONE (14:13)
--- NOTE | 2019-07-14 15:24 | P.CNPUL ---
History of Present Illness Consult date: 07/14/19 Chief complaint: Abdominal discomfort History of present illness: This is a 69-year-old female who came into emergency department with abdominal pain, she sees Dr. Cuate DENISE for primary care activity in started about 2 days ago has been progressive in nature, pain has been consistent mostly present and localized to right lower abdomen no nausea vomiting is present denies any diarrhea or constipation hematochezia or hematemesis, CT abdomen and pelvis revealed appendix 7 mm along with stranding and appendical late early acute appendicitis was diagnosed and patient is taken to the OR by Dr. Frances a successful appendectomy was performed, patient patient has significant past history of bipolar disorder and hypothyroidism which has been stable has been on daily when necessary Synthroid which are being resumed Review of Systems All systems: negative Past Medical History Past Medical History: Osteoarthritis (OA), Thyroid Disorder Additional Past Medical History / Comment(s): Constipation. Hx colon polyps. History of Any Multi-Drug Resistant Organisms: None Reported Past Surgical History: Hysterectomy Additional Past Surgical History / Comment(s): Tubal . Colonoscopy. Past Anesthesia/Blood Transfusion Reactions: No Reported Reaction Past Psychological History: Anxiety, Depression Smoking Status: Never smoker Past Alcohol Use History: None Reported Past Drug Use History: None Reported - Past Family History Brother(s) Family Medical History: Cancer Additional Family Medical History / Comment(s): Esophagus CA Sister(s) Family Medical History: Cancer Additional Family Medical History / Comment(s): Colon CA Medications and Allergies Home Medications Medication Instructions Recorded Confirmed Type Levothyroxine Sodium [Synthroid] 75 mcg PO QAM 04/15/18 07/14/19 History [place] Carbonate 300 mg PO QAM 04/15/18 07/14/19 History [place] Carbonate 600 mg PO HS 04/15/18 07/14/19 History Ergocalciferol [Vitamin D2] 50,000 unit PO FR 06/09/19 07/14/19 History Allergies Allergy/AdvReac Type Severity Reaction Status Date / Time aspirin Allergy Itching Verified 07/14/19 15:13 alendronate sodium AdvReac Tooth Decay Verified 07/14/19 15:13 [From Fosamax] codeine AdvReac "Makes me Verified 07/14/19 15:13 feel off balance" Physical Exam Vitals: Vital Signs Temp Pulse Pulse Pulse Resp BP BP 07/14/19 14:25 70 16 140/80 07/14/19 14:10 67 16 122/72 07/14/19 13:55 72 16 133/70 07/14/19 13:40 98.1 F 101 H 20 135/77 07/14/19 12:38 98.8 F 78 16 141/70 07/14/19 12:18 98.4 F 77 18 117/75 07/14/19 10:10 98.1 F 70 16 130/76 Pulse Ox 07/14/19 14:25 97 07/14/19 14:10 97 07/14/19 13:55 99 07/14/19 13:40 96 07/14/19 12:38 99 07/14/19 12:18 99 07/14/19 10:10 99 Intake and Output 07/13/19 07/14/19 07/14/19 22:59 06:59 14:59 Intake Total 775 Output Total 5 Balance 770 Intake: IV 775 Output: Estimated Blood Loss 5 Other: Weight 86.092 kg - Constitutional General appearance: cooperative, morbidly obese - EENT Eyes: PERRLA, poor dentition, normal appearance ENT: normal oropharynx Ears: bilateral: normal - Neck Carotids: bilateral: upstroke normal Thyroid: bilateral: normal size - Respiratory Respiratory: bilateral: CTA - Cardiovascular Rhythm: regular Heart sounds: normal: S1, S2 - Gastrointestinal General gastrointestinal: decreased bowel sounds - Neurologic Neurologic: CNII-XII intact - Musculoskeletal Musculoskeletal: gait normal, generalized weakness, strength equal bilaterally - Psychiatric Psychiatric: A&O x's 3, appropriate affect, intact judgment & insight Results - Laboratory Findings CBC and BMP: 07/14/19 10:35 07/14/19 10:35 Abnormal lab findings: Abnormal Labs 07/14/19 07/14/19 07/14/19 10:35 10:35 10:35 WBC 14.5 H Neutrophils # 12.5 H Glucose 101 H ALT 36 H Urine WBC 7 H Urine Mucus Rare H - Diagnostic Findings Additional studies: Computed tomography scan of [place] pelvis reviewed Assessment and Plan Assessment: Acute appendicitis Right lower quadrant abdominal pain secondary due to above Bipolar disorder on [place] Hypothyroidism on replacement therapy Plan: Deep breathing exercises incentive spirometry Pain management Increase activity as tolerated Resume home meds/med reconciliation done Stable medical standpoint for discharge will follow-up with Dr. Carbone Time with Patient: Greater than 30
[2019-07-14] MEDS: HEPARIN SODIUM,PORCINE 5,000 UNIT/ML 1 ML VIAL SQ SCH (16:53)
[2019-07-14] MEDS: HYDROcodone/APAP 5-325MG 1 EACH TAB PO PRN (20:10)
[2019-07-14] MEDS: PIPERACILLIN-TAZOBACTAM 3.375 GM in SODIUM CHLORIDE 0.9% 100 ML IVPB SCH (20:10)
[2019-07-14] MEDS ORDERED: LITHIUM CARBONATE 300 MG CAP PO SCH (21:00)
[2019-07-15] MEDS: HEPARIN SODIUM,PORCINE 5,000 UNIT/ML 1 ML VIAL SQ SCH ×2 (00:20→08:51)
[2019-07-15] MEDS: HYDROcodone/APAP 5-325MG 1 EACH TAB PO PRN ×3 (00:20→09:38)
[2019-07-15] MEDS: PIPERACILLIN-TAZOBACTAM 3.375 GM in SODIUM CHLORIDE 0.9% 100 ML IVPB SCH (04:24)
[2019-07-15] MEDS ORDERED: LEVOTHYROXINE 75 MCG TAB PO SCH (06:30)
[2019-07-15 07:46] LABS: Basophils % (A) 0 %; Eosinophils # (A) 0.2 k/uL (0-0.7); Eosinophils % (A) 3 %; HCT 38.2 % (34.0-46.0); HGB 12.1 gm/dL (11.4-16.0); Lymphocytes # (A) 1.6 k/uL (1.0-4.8); Lymphocytes % (A) 24 %; MCH 28.9 pg (25.0-35.0); MCHC 31.7 g/dL (31.0-37.0); Mean Platelet Volume 10.1; Monocytes # (A) 0.3 k/uL (0-1.0); Monocytes % (A) 4 %; Neutrophils # (A) 4.7 k/uL (1.3-7.7); Neutrophils % (A) 68 %; Platelet Count 141 k/uL (150-450); RDW 13.3 % (11.5-15.5); WBC 6.9 k/uL (3.8-10.6)
[2019-07-15 08:02] LABS: Calcium 8.5 mg/dL (8.4-10.2); Potassium 4.6 mmol/L (3.5-5.1)
[2019-07-15 08:41] VITALS: BP 112/74; PULSE 66; RESP 24; TEMP 98
[2019-07-15] MEDS ORDERED: PANTOPRAZOLE 40 MG/10 ML VIAL IVP SCH (09:00)
[2019-07-15] MEDS ORDERED: LITHIUM CARBONATE 300 MG CAP PO SCH (09:00)
--- NOTE | 2019-07-15 14:13 | P.DS ---
Providers Date of admission: 07/14/19 11:57 Expected date of discharge: 07/15/19 Attending physician: Marco A Colindres Consults: 07/14/19 11:50 Consult Physician Urgent Consulting Provider: Chapito Chan Consult Reason/Comments: Medical management, acute appendicitis Do you want consulting provider notified?: Yes Primary care physician: Miley Raf [facility] Course: 69-year-old female presented to the emergency room with a chief complaint of abdominal pain. She reports the pain has been present for approximately 48 hours. She denies diarrhea or constipation. Denies fever or chills. She reports the pain is localized to the right lower quadrant. Patient underwent workup in the emergency room which revealed acute appendicitis. Patient underwent upper scope And acne with Dr. Colindres. Patient is doing well postoperatively without any immediate complications. Her pain is controlled on oral medications. Tolerating diet without nausea or vomiting. Vital signs are stable. She is stable for discharge home today per Dr. Colindres. Please see EMR for further hospital course details. Discharge Diagnosis: 1. Abdominal pain 2. Acute appendicitis Nurse practitioner note has been reviewed by physician. Signing provider agrees with the documented findings, assessment, and plan of care. Patient Condition at Discharge: Stable Plan - Discharge Summary Discharge Rx Participant: No New Discharge Prescriptions: New Hydrocodone/Acetaminophen [[place] 5-325] 1 tab PO Q6HR PRN #10 tab PRN Reason: Pain No Action Levothyroxine Sodium [Synthroid] 75 mcg PO QAM [place] Carbonate 300 mg PO QAM [place] Carbonate 600 mg PO HS Ergocalciferol [Vitamin D2] 50,000 unit PO FR Discharge Medication List Levothyroxine Sodium [Synthroid] 75 mcg PO QAM 04/15/18 [History] [place] Carbonate 300 mg PO QAM 04/15/18 [History] [place] Carbonate 600 mg PO HS 04/15/18 [History] Ergocalciferol [Vitamin D2] 50,000 unit PO FR 06/09/19 [History] Hydrocodone/Acetaminophen [[place] 5-325] 1 tab PO Q6HR PRN #10 tab 07/15/19 [Rx] Follow up Appointment(s)/Referral(s): Miley Carbone MD [Primary Care Provider] - 1-2 days Marco A Colindres MD [STAFF PHYSICIAN] - 1 Week (07-24-2019 AT 2:10PM) Patient Instructions/Handouts: Laparoscopic Appendectomy (DC), Laparoscopic Appendectomy (GEN) Activity/Diet/Wound Care/Special Instructions: No driving while taking [place] No lifting over 10 pounds You may shower. No soaking or tub baths Very light activity until you are reevaluated at your follow up appointment with your surgeon Discharge Disposition: HOME SELF-CARE
--- NOTE | 2019-07-28 15:16 | P.OP ---
Date of Procedure: 07/14/19 Preoperative Diagnosis: Acute appendicitis Postoperative Diagnosis: Acute appendicitis Procedure(s) Performed: Laparoscopic appendectomy Anesthesia: MAC Surgeon: Marco A Colindres Pathology: other (Appendix) Condition: stable Disposition: PACU Description of Procedure: The patient's placed on the operating table in the supine position. The patient received general anesthesia. The abdomen was prepped and draped in the usual sterile fashion. The skin was anesthetized 1% local Xylocaine at the trocar sites. Using an 11 blade the skin was incised at the umbilicus. The umbilicus was grasped with a Sneads clamp and then a Veress needle was placed into the peritoneal cavity. Position of the Veress needle was confirmed with positive drop test. After adequate insufflation a 5 mm trocar was placed into the peritoneal cavity. The abdomen was further insufflated. And then the laparoscope was placed in the peritoneal cavity. Next a 5 mm trocar was placed in the midline suprapubic position. And then a 10 mm trocar was placed in the midline epigastric position. The patient was rotated with the right side up and in Trendelenburg. The appendix was visualized. The appendix appeared to be inflamed. The appendix was grasped and then using the Harmonic scissors the mesoappendix was divided. A PDS Endoloop was then placed around the base of the appendix. And then the appendix was divided using Harmonic scissors. The appendix was placed into an Endo Catch and brought out through the 10 mm trocar site. The abdomen was irrigated. There is no bleeding seen. The trochars withdrawn. The skin was closed interrupted 3-0 Monocryl suture. Dermabond dressing was applied. Patient was sent to recovery room in stable condition.
== END 2019-07-15 10:55 | disposition home or self-care (01) ==
LOC: EC 10:07 → 6PED 11:57
PROVIDERS: ADMIT Surgery; ATTEND Surgery
DX: K35.30 Acute appendicitis with localized peritonitis, without perforation or gangrene (principal); F31.9 Bipolar disorder, unspecified; E03.9 Hypothyroidism, unspecified; M19.90 Unspecified osteoarthritis, unspecified site; F41.9 Anxiety disorder, unspecified; F34.1 Dysthymic disorder; Z90.710 Acquired absence of both cervix and uterus; Z79.890 Hormone replacement therapy; Z79.899 Other long term (current) drug therapy; Z88.6 Allergy status to analgesic agent; Z88.5 Allergy status to narcotic agent; Z88.8 Allergy status to other drugs, medicaments and biological substances; Z87.19 Personal history of other diseases of the digestive system; Z86.010 Personal history of colon polyps; Z87.59 Personal history of other complications of pregnancy, childbirth and the puerperium; Z98.890 Other specified postprocedural states; Z80.0 Family history of malignant neoplasm of digestive organs
CPT/HCPCS: 96361; 96374; 99285; 36415; 88304; 80053; 80048; 82150; 83605; 83690; 85025 ×2; 81001; 74177; 44970; G0378 ×2; J2543 ×2; J2250; J1644 ×2; J2710; J2405; J0690; J3010; J1885; J0330; J2704; C9113; J1170; Q9967

== ENCOUNTER → 2020-03-26 | Outpatient (CLI) | payer MEDICARE, OTHER ==
--- NOTE | 2020-03-29 08:29 | MM ---
Reason for exam: screening (asymptomatic). Last mammogram was performed 1 year and 2 months ago. History: Patient is postmenopausal. Family history of premenopausal breast cancer in sister at age 20 and breast cancer in paternal aunt at age 60. Benign US right guided mammotome of the right breast, September 06, 2007. Benign excisional biopsy of the right breast, 1989. Took hormonal contraceptives for 5 years beginning at age 19. Physical Findings: A clinical breast exam by your physician is recommended on an annual basis and results should be correlated with mammographic findings. MG 3D Screening Mammo W/Cad Bilateral CC, MLO, and XCCL view(s) were taken. Prior study comparison: January 10, 2019, bilateral MG 3d screening mammo w/cad. December 17, 2017, bilateral MG 3d screening mammo w/cad. The breast tissue is heterogeneously dense. This may lower the sensitivity of mammography. Benign appearing bilateral calcifications. No significant changes when compared with prior studies. ASSESSMENT: Benign, BI-RAD 2 RECOMMENDATION: Routine screening mammogram of both breasts in 1 year.
== END | disposition home or self-care (01) ==
LOC: RADMAMWWP 08:59
PROVIDERS: ATTEND Family Medicine
DX: Z12.31 Encounter for screening mammogram for malignant neoplasm of breast (principal); Z80.3 Family history of malignant neoplasm of breast
CPT/HCPCS: 77063; 77067

== ENCOUNTER → 2021-05-05 | Outpatient (CLI) | payer MEDICARE, OTHER ==
--- NOTE | 2021-05-06 13:57 | MM ---
Reason for exam: screening (asymptomatic). Last mammogram was performed 1 year and 1 month ago. History: Patient is postmenopausal. Family history of premenopausal breast cancer in sister at age 20 and breast cancer in paternal aunt at age 60. Benign US right guided mammotome of the right breast, September 06, 2007. Benign excisional biopsy of the right breast, 1989. Took hormonal contraceptives for 5 years beginning at age 19. Physical Findings: A clinical breast exam by your physician is recommended on an annual basis and results should be correlated with mammographic findings. MG 3D Screening Mammo W/Cad Bilateral CC and MLO view(s) were taken. Prior study comparison: March 26, 2020, bilateral MG 3d screening mammo w/cad. January 10, 2019, bilateral MG 3d screening mammo w/cad. The breast tissue is heterogeneously dense. This may lower the sensitivity of mammography. There is no discrete abnormality. ASSESSMENT: Benign, BI-RAD 2 RECOMMENDATION: Routine screening mammogram of both breasts in 1 year.
== END | disposition home or self-care (01) ==
LOC: RADMAMWWP 09:34
PROVIDERS: ATTEND Family Medicine
DX: Z12.31 Encounter for screening mammogram for malignant neoplasm of breast (principal); Z78.0 Asymptomatic menopausal state; Z80.3 Family history of malignant neoplasm of breast
CPT/HCPCS: 77063; 77067

== ENCOUNTER → 2022-02-08 | Outpatient (CLI) | payer MEDICARE, OTHER ==
[2022-02-08 23:56] LABS: Protein, Total 6.2 g/dL (6.2-8.2)
[2022-02-10 09:14] LABS: Free Kappa Lt Chain Qnt, Serum 1.82 mg/dL (0.33-1.94)
== END | disposition home or self-care (01) ==
LOC: LABWHC1 15:32
PROVIDERS: ATTEND Allergy & Immunology
DX: D80.1 Nonfamilial hypogammaglobulinemia (principal)
CPT/HCPCS: 36415; 82787; 83883; 84165; 86334

== ENCOUNTER 2022-03-17 07:25 | Day surgery (SDC) | payer MEDICARE, OTHER ==
[2022-03-15 13:30] VITALS: BMI 28.1
[2022-03-17] MEDS: LACTATED RINGERS 1,000 ML IV SCH ×2 (07:32→07:55)
[2022-03-17] MEDS ORDERED: LIDOCAINE 1% (10MG/ML) FOR IV START INTRADERMA ONE (07:55)
[2022-03-17 07:57] VITALS: TEMP 98.3
[2022-03-17] MEDS ORDERED: PROPOFOL 10 MG/ML 20 ML VIAL IV ONE (08:34)
[2022-03-17] MEDS ORDERED: LIDOCAINE 2% INJ 20 MG/ML (2 ML VIAL) ONE (08:34)
--- NOTE | 2022-03-17 08:46 | P.PCN ---
Date of Procedure: 03/17/22 Procedure(s) Performed: BRIEF HISTORY: Patient is a 71-year-old, pleasant, white female scheduled for an upper endoscopy as a part of evaluation of abdominal pain, heartburn and multiple ALLERGIES that she was diagnosed recently. She has been on omeprazole 20 mg daily with some help. She is being evaluate for possible eosinophilic esophagitis PROCEDURE PERFORMED: Esophagogastroduodenoscopy with biopsy. PREOPERATIVE DIAGNOSIS: Abdominal pain/heartburn. IV sedation per anesthesia. PROCEDURE: After informed consent was obtained, the patient was brought into the endoscopy unit. IV sedation was administered by Anesthesia under continuous monitoring. Initially the Olympus GIF-140 video endoscope was inserted into the mouth. Esophagus intubated without any difficulty. It was gradually advanced into the stomach and duodenum and carefully examined. The bulb and the second part of the duodenum appeared normal. Biopsies were done from this area to rule out celiac disease. The scope at this time was withdrawn to the stomach, adequately insufflated with air, and upon careful examination, mucosa of the antrum, had scattered erosions and biopsies were done from this area. Mucosa of the body, cardia and the fundus appeared normal. The scope was then withdrawn into the esophagus. The GE junction was located at 39 cm from the incisors. The esophagus appeared normal. There were no erosions or ulcerations seen , biopsies were done from the mid and distal esophagus to evaluate for eosinophilic esophagitis and the patient tolerated the procedure well. IMPRESSION: 1. 2 superficial erosions at the GE junction consistent with LA grade B reflux esophagitis. 2. Scattered erosions in the antrum consistent with antral gastritis. RECOMMENDATIONS: The findings of this examination were discussed with the patient as well as a family. She was advised to follow with the biopsy results. She can continue with omeprazole 20 mg daily and follow antireflux measures..
[2022-03-17 09:07] VITALS: BP 143/88; PULSE 69; RESP 18
== END 2022-03-17 09:16 | disposition home or self-care (01) ==
LOC: ORWHC2ENDO 07:25
PROVIDERS: ATTEND Internal Medicine Gastroenterology
DX: K21.00 Gastro-esophageal reflux disease with esophagitis, without bleeding (principal); K29.50 Unspecified chronic gastritis without bleeding; E07.9 Disorder of thyroid, unspecified; F41.9 Anxiety disorder, unspecified; F32.A Depression, unspecified; M19.90 Unspecified osteoarthritis, unspecified site; Z88.5 Allergy status to narcotic agent; Z88.6 Allergy status to analgesic agent; Z79.890 Hormone replacement therapy
CPT/HCPCS: 88305; 43239; J2704; J2001

== ENCOUNTER → 2022-05-08 | Outpatient (CLI) | payer MEDICARE, OTHER ==
--- NOTE | 2022-05-09 15:12 | MM ---
Reason for Exam: Screening (asymptomatic). Last screening mammogram was performed 12 month(s) ago. Patient History: Menarche at age 17. First Full-Term at age 19. Left ovary removed at age 68. Right ovary removed at age 68. Hysterectomy at age 68. Postmenopausal. Hormonal Contraceptives for 5 years from age 19 until age 24. 1989, Benign Excisional Biopsy on the right side. 09/06/2007, Benign Core Biopsy on the right side. Paternal aunt had breast cancer, age 60. Sister had breast cancer, age 20. Risk Values: Maria 5 year model risk: 4.6%. NCI Lifetime model risk: 11.6%. Prior Study Comparison: 01/10/2019 Bilateral Screening Mammogram, [facility]. 03/26/2020 Bilateral Screening Mammogram, [facility]. 05/05/2021 Bilateral Screening Mammogram, [facility]. Tissue Density: The breast tissue is heterogeneously dense. This may lower the sensitivity of mammography. Findings: Analyzed By CAD. Mammotome biopsy clip in the right breast is redemonstrated. There are a few scattered benign-appearing round and vascular calcifications throughout the bilateral breasts redemonstrated. Benign-appearing bilateral axillary lymph nodes are again seen. There is no suspicious new group of microcalcifications or new suspicious mass in either breast. Overall Assessment: Benign, BI-RAD 2 Management: Screening Mammogram of both breasts in 1 year. A clinical breast exam by your physician is recommended on an annual basis and results should be correlated with mammographic findings. Electronically signed and approved by: Barney Araiza M.D.
== END | disposition home or self-care (01) ==
LOC: RADMAMWWP 14:17
PROVIDERS: ATTEND Family Medicine
DX: Z12.31 Encounter for screening mammogram for malignant neoplasm of breast (principal); Z78.0 Asymptomatic menopausal state; Z80.3 Family history of malignant neoplasm of breast
CPT/HCPCS: 77063; 77067

== ENCOUNTER → 2022-06-15 | Outpatient (CLI) | payer MEDICARE, OTHER ==
[2022-06-15 12:49] LABS: INR 0.9 (<1.2); Partial Thromboplastin Time 25.8 sec (22.0-30.0); Prothrombin Time 9.7 sec (9.0-12.0)
[2022-06-15 20:45] LABS: Appearance,Urine Clear (Clear); Bilirubin,Urine Negative (Negative); Blood,Urine Negative (Negative); Color,Urine Yellow (Yellow); Ketones,Urine Negative (Negative); Nitrite,Urine Negative (Negative); PH, Urine 7.5 (5.0-8.0); Specific Gravity,Urine 1.007 (1.001-1.030); Urobilinogen,Urine 0.2 (0.2,1.0)
[2022-06-15 20:54] LABS: Bacteria,Urine None Seen /HPF (None Seen)
[2022-06-15 21:14] LABS: HCT 45.3 % (37.2-46.3); HGB 13.9 g/dL (12.0-15.0); MCH 29.8 pg (27.0-32.0); MCHC 30.7 g/dL (32.0-37.0); MCV 97.2 fL (80.0-97.0); Mean Platelet Volume 12.7 fL (9.5-12.2); NRBC Per 100 WBC 0 /100 WBCS (0.0-0.0); Platelet Count 187 X 10*3/uL (140-440); RBC 4.66 X 10*6/uL (4.10-5.20); RDW 13.2 % (11.5-14.5); WBC 7.23 X 10*3/uL (4.50-10.00)
[2022-06-15 22:12] LABS: African American GFR (CKD) 70.8 (60.0-200.0); Albumin 4.5 g/dL (3.8-4.9); Albumin/Globulin Ratio 2.21 (1.60-3.17); Anion Gap 10.7 mmol/L (10.00-18.00); BUN/Creat Ratio 10.15 Ratio (12.00-20.00); Blood Urea Nitrogen 9.4 mg/dL (9.0-27.0); Carbon Dioxide 25.2 mmol/L (20.0-27.5); Non-African American GFR(CKD) 61.1 (60.0-200.0); Potassium 4.4 mmol/L (3.5-5.5); Total Bilirubin 0.5 mg/dL (0.30-1.20); Total Protein 6.6 g/dL (6.2-8.2)
== END | disposition home or self-care (01) ==
LOC: LABPAT 11:59
PROVIDERS: ATTEND Orthopaedic Surgery
DX: Z01.812 Encounter for preprocedural laboratory examination (principal)
CPT/HCPCS: 36415; 80053; 81001; 85027; 85610; 85730; 87070

== ENCOUNTER 2022-06-26 07:18 | Day surgery (SDC) | payer MEDICARE, OTHER ==
[2022-06-21 13:15] VITALS: BMI 28.2
[~2022-06-26 07:18] MED LIST changes: +ACETAMINOPHEN TAB 500 MG TAB PO PRN; +DEXAMETHASONE SOD PHOSPHATE 4 MG/ML 1 ML VIAL IV ONE; +GABAPENTIN 300 MG CAP PO PRN; -LACTATED RINGERS 1,000 ML IV SCH; +LIDOCAINE 1% (10MG/ML) FOR IV START INTRADERMA PRN; -LIDOCAINE 1% 20 ML VIAL (10MG/ML) FOR IV START INTRADERMA PRN; +MELOXICAM 7.5 MG TAB PO PRN; +MIDAZOLAM 2 MG/2 ML VIAL IV PRN; +ONDANSETRON 4 MG/2 ML VIAL IVP ONE; +TRANEXAMIC ACID IN NACL,ISO-OS 1,000 MG in SALINE 1 100ML.BAG IVPB PRN
[2022-06-26] MEDS ORDERED: MIDAZOLAM 2 MG/2 ML VIAL IVP ONE (08:43)
[2022-06-26] MEDS ORDERED: fentaNYL (PF) 50 MCG/1 ML VIAL IVP ONE (08:43)
--- NOTE | 2022-06-26 08:53 | P.ANPRN ---
Procedure Note - Anesthesia - Nerve Block Performed Right Lupillo Single Time Out Performed: Yes ([id number]) Date of Procedure: 06/26/22 Location of Patient: PreOp Indication: Acute Post-Operative Pain, Requested by Surgeon Specifically requested for management of pain by DrGaye: Yash Cevallos Sedation Type: Sedate with meaningful contact maintained Preparation: Sterile Prep Position: Supine Catheter: None Needle Types: Pajunk Needle Gauge: 21 Ultrasound used to visualize needle placement: Yes Ultrasound used to observe medication spread: Yes Injectate: 0.5% Ropivacaine (see comment for volume) (20 cc + 10 cc of NS) Blood Aspirated: No Pain Paresthesia on Injection Noted: No Resistance on Injection: Normal Image Stored and Saved: Yes Events: Uneventful and Well Tolerated
[2022-06-26] MEDS ORDERED: NALOXONE 0.4 MG/ML 1 ML VIAL IV PRN (08:56)
[2022-06-26] MEDS ORDERED: MAGNESIUM HYDROXIDE 2,400 MG/10 ML CUP PO PRN (08:56)
[2022-06-26] MEDS ORDERED: ONDANSETRON 4 MG/2 ML VIAL IVP PRN (08:56)
[2022-06-26] MEDS ORDERED: HYDROmorphone 0.5 MG/0.5 ML SYRINGE IVP PRN ×3 (08:56)
[2022-06-26] MEDS: LACTATED RINGERS 1,000 ML IV SCH (08:58)
[2022-06-26] MEDS ORDERED: traMADol 50 MG TAB PO PRN (09:00)
[2022-06-26] MEDS ORDERED: ASPIRIN 325 MG TAB PO SCH (09:00)
[2022-06-26] MEDS ORDERED: PROPOFOL 10 MG/ML 20 ML VIAL IV ONE (09:08)
[2022-06-26] MEDS ORDERED: ceFAZolin 1,000 MG in SODIUM CHLORIDE 0.9% 1,000 ML IRRIGATION ONE (09:08)
[2022-06-26] MEDS ORDERED: fentaNYL (PF) 50 MCG/ML 2 ML AMP ONE (09:08)
[2022-06-26] MEDS ORDERED: TRANEXAMIC ACID IN NACL,ISO-OS 1,000 MG/100 ML BAG ONE (09:08)
[2022-06-26] MEDS ORDERED: ePHEDrine 50 MG/ML 1 ML VIAL ONE (09:08)
[2022-06-26] MEDS ORDERED: MIDAZOLAM 2 MG/2 ML VIAL ONE (09:08)
[2022-06-26] MEDS ORDERED: SODIUM CHLORIDE 0.9% (PF) 10 ML VIAL ONE (09:08)
[2022-06-26] MEDS ORDERED: ROPIVACAINE 5 MG/ML 30 ML VIAL ONE (09:08)
[2022-06-26] MEDS ORDERED: ROPIVACAINE 5 MG/ML 30 ML VIAL MISCELLANE ONE ×2 (09:14→10:07)
--- NOTE | 2022-06-26 10:16 | P.OP ---
Date of Procedure: 06/26/22 Preoperative Diagnosis: Severe osteoarthritis right hip Postoperative Diagnosis: Severe osteoarthritis right hip Procedure(s) Performed: Right total hip arthroplasty with a direct anterior approach Implants: [employer] Polarstem standard size 4 with a collar [employer] R3, 3 hole hemispherical acetabular shell, 52 mm [employer] Reflection 6.5 mm cancellus screw, 25 mm 2 [employer] R3, XLPE 20 acetabular liner [employer] Oxinium femoral head 36 m, +4 All components were press-fit. The articulation is Oxinium on polyethylene. Anesthesia: spinal Surgeon: Yash Cevallos Flexible Nanny #1: Marisela Solano Estimated Blood Loss (ml): 300 Pathology: other (Femoral head) Condition: stable Disposition: PACU Indications for Procedure: After failure of conservative treatment we discussed the surgical and nonsurgical treatment options at length. Patient wishes to proceed with a total hip arthroplasty with a direct anterior approach. Complications specific to this procedure were discussed at length, including but not limited to infection, leg length discrepancy, dislocation, nerve injury, and fracture. Covid-19 was also discussed at length with the patient, and they are aware of the current policies and procedures. The patient was given the option of delaying surgery, but they elect to proceed knowing these risks. Patient is aware of all these complications and informed consent was obtained Operative Findings: The operative findings are consistent with severe osteoarthritis of the right hip Description of Procedure: The patient was seen and evaluated in the preoperative area and the consent was reviewed. The operative site was marked with a skin marker. The patient verified the procedure and operative site. A HANANE block was placed by anesthesia in the preoperative area. The patient was then brought to the operating room and given preoperative antibiotics intravenously. 1 g of Tranexamic acid was also given intravenously. A spinal anesthetic was administered by the anesthesia department. The patient was then placed on the [place] table with the bony prominences well-padded. The hip area was then prepped with a ChloraPrep solution and draped in the usual sterile fashion. A universal timeout was then performed, which confirmed the patient's name, surgical site, ALLERGIES, and procedure being performed on the consent. Next the incision site was located at 1 cm distal and 4 cm lateral to the anterior superior iliac spine. The skin and subcutaneous tissues were sharply incised. Incision was carefully dissected down to the fascia overlying the tensor fascia niya muscle. This fascia was then incised in line with the muscle fibers. Care was taken to stay laterally in order to avoid injuring the lateral femoral cutaneous nerve. Next, using blunt finger dissection, the tensor fascia niya muscle was dissected off its investing fascia. The muscle was then carefully retracted laterally with a cobra retractor over the lateral neck of the femur. Next, the circumflex vessels were identified and cauterized using the Aquamantis device. The anterior hip capsule was then exposed. The capsule was then opened and an inverted T fashion. The retractors were then placed intracapsularly. The retractors were maintained intracapsular throughout the procedure. The proximal femur was then visualized. Fluoroscopic x-rays were then taken in order to evaluate the preoperative leg lengths. A small amount of traction was placed on the leg. The femoral neck was then osteotomized at the appropriate level above the lesser trochanter. A small wedge of bone was then removed from the remaining femoral head. Next, using a corkscrew the femoral head was removed from the acetabulum. On gross visual inspection, the femoral head had complete loss of articular cartilage and multiple periarticular osteophytes. The femoral head was then measured. Attention was then turned to the acetabulum. The acetabulum was exposed and any remaining labrum was excised. Sequential reaming of the acetabulum was performed using fluoroscopic guidance until there was a good bed of bleeding cancellus bone. When the appropriate size was reached, a trial was then placed. The position and fit of the trial was checked with fluoroscopy. The trial was then removed. Then, using fluoroscopic guidance, the final implant was impacted at 20 of anteversion and 40 of abduction, and fully seated in the acetabulum. 2 screws were then placed in the acetabulum. Again fluoroscopy was used to check position of the screws. Next, the liner was then impacted, with a 20 elevated liner located in the anterior superior quadrant. Component locking was confirmed. Attention was then directed to the femur. With the aid of the [place] table, the femur was externally rotated to approximately 130, extended, and adducted under the opposite leg. A side hook was then placed under the proximal femur, and the side hook elevator was used to elevate the proximal femur while releasing the capsule. Retractors were then placed. A capsular release was performed, as well as a release of the conjoined tendon, which afforded excellent visualization of the proximal femur. Next, a box osteotome was used to lateralize the proximal femur. A seconds handler was then used to locate the femoral canal. Sequential broaching was then performed with appropriate size which afforded excellent fixation in the proximal femur. A trial was then placed with appropriate head and neck, and the hip was gently reduced with the aid of the [place] table. Fluoroscopy was then used to check position of the components, as well as to evaluate the leg lengths and offset. The leg lengths and offset were measured as closely as possible to ensure stability of the hip. The hip was then gently dislocated and the trials were then removed. Final implants were then impacted and the hip was again reduced. Final fluoroscopic x-rays confirmed that the components were in anatomic position. The leg lengths and offset were measured and were found to coincide with the trial measurements. The hip was also taken through range of motion, and found to be stable. The hip was then copiously irrigated with antibiotic solution with pulsatile lavage. The hip was then irrigated with Irrisept solution. The soft tissues were then injected with a ropivacaine solution. A second dose of 1 g of Tranexamic acid was also given intravenously. The fascia was then closed with 2-0 strata fix suture. The subcutaneous tissue was closed with 3-0 Vicryl. The subcuticular tissue was closed with 3-0 strata fix suture. The skin was then closed with Exofin skin glue. After the glue and dried, and Optifoam silver impregnated dressing was applied. The patient was then transferred to the recovery room in stable condition. The kindergarten instructional assistant SINA Jennings was required due to the complexity of surgery, and the need for skilled certified ophthalmic surgical assistant for positioning, draping, exposure, retraction, and closure of the wound.
--- NOTE | 2022-06-26 10:29 | XR ---
EXAMINATION TYPE: XR Hip Limited RT DATE OF EXAM: 06/26/2022 COMPARISON: NONE HISTORY: Postop TECHNIQUE: One view submitted. FINDINGS: There is postsurgical change in near anatomic alignment. There is soft tissue edema and emphysema. IMPRESSION: 1. Postoperative change. Appears in near-anatomic alignment.
--- NOTE | 2022-06-26 10:30 | FL ---
EXAMINATION TYPE: FL guidance operating room DATE OF EXAM: 06/26/2022 HISTORY: Fluoroscopy time 26 seconds of fluoroscopy provided. IMPRESSION: 1. Fluoroscopy time.
[2022-06-26] MEDS: HYDROmorphone 0.5 MG/0.5 ML SYRINGE IVP PRN ×2 (11:23→12:32)
[2022-06-26] MEDS ORDERED: diphenhydrAMINE 50 MG/ML 1 ML VIAL IVP ONE (12:07)
[2022-06-26] MEDS: SODIUM CHLORIDE 0.9% 1,000 ML IV SCH ×2 (14:50→21:34)
[2022-06-26] MEDS: PANTOPRAZOLE 40 MG/10 ML VIAL IVP SCH (16:25)
[2022-06-26] MEDS: traMADol 50 MG TAB PO PRN (16:31)
[2022-06-26] MEDS ORDERED: LITHIUM CARBONATE 300 MG CAP PO SCH (21:00)
[2022-06-26] MEDS ORDERED: SENNOSIDES-DOCUSATE SODIUM 1 EACH TAB PO SCH (21:00)
[2022-06-27] MEDS: LACTATED RINGERS 1,000 ML IV SCH (04:21)
[2022-06-27] MEDS ORDERED: LEVOTHYROXINE 75 MCG TAB PO SCH (06:30)
[2022-06-27] MEDS: traMADol 50 MG TAB PO PRN (08:18)
[2022-06-27] MEDS: PANTOPRAZOLE 40 MG/10 ML VIAL IVP SCH (08:20)
[2022-06-27] MEDS ORDERED: LITHIUM CARBONATE 300 MG CAP PO SCH (09:00)
[2022-06-27] MEDS ORDERED: APIXABAN 2.5 MG TABLET PO SCH (09:00)
[2022-06-27 09:14] LABS: Basophils # (A) 0.03 X 10*3/uL (0.00-0.10); Basophils % (A) 0.2 %; Eosinophils # (A) 0 X 10*3/uL (0.04-0.35); Eosinophils % (A) 0 %; HCT 33.9 % (37.2-46.3); HGB 10.4 g/dL (12.0-15.0); Immature Grans, Automated 0.4 %; Lymphocytes % (A) 9.7 %; MCH 29.2 pg (27.0-32.0); MCHC 30.7 g/dL (32.0-37.0); MCV 95.2 fL (80.0-97.0); Mean Platelet Volume 12.7 fL (9.5-12.2); Monocytes # (A) 0.96 X 10*3/uL (0.20-1.00); Monocytes % (A) 7.2 %; NRBC Per 100 WBC 0 /100 WBCS (0.0-0.0); Neutrophils # (A) 11.03 X 10*3/uL (1.80-7.70); Neutrophils % (A) 82.5 %; Platelet Count 158 X 10*3/uL (140-440); RBC 3.56 X 10*6/uL (4.10-5.20); RDW 13.2 % (11.5-14.5); WBC 13.37 X 10*3/uL (4.50-10.00)
--- NOTE | 2022-06-27 10:57 | P.CONS ---
History of Present Illness - Reason for Consult Consult date: 06/27/22 Medical management hypothyroidism Requesting physician: Yash Cevallos - Chief Complaint Right hip osteoarthritis, status post right total hip arthroplasty - History of Present Illness Psych pleasant 72-year-old female with past medical history of hypothyroidism, hyperlipidemia, anxiety, depression, right hip osteoarthritis, failed conservative treatments, status post right total hip arthroplasty with direct anterior approach. Tolerated procedure well. Minimal ambulation with walker within room to bathroom, tolerated exertion well. Denies chest pain, palpitations or shortness of breath. Maintaining O2 sats in the 90s on room air Pain controlled. Maintained on gentle IV fluid hydration. Afebrile, WBC 13.37. Good diet intake with no nausea vomiting or diarrhea. Passing flatus. Denies abdominal pain. Review of Systems Constitutional: Denied any fatigue denied any fever. Cardio vascular: denied any chest pain, palpitations Gastrointestinal denied any nausea vomiting Pulmonary: Denied any shortness of breath cough Neurologic denied any new focal deficits All inpatient medications were reviewed and appropriate changes in these medications as dictated in the interval history and assessment and plan. Past Medical History Past Medical History: Hyperlipidemia, Osteoarthritis (OA), Thyroid Disorder Additional Past Medical History / Comment(s): Constipation. Hx colon polyps. Right hip spurs. Neck Pain. Burning pain in lower legs. "Signs of MS." History of Any Multi-Drug Resistant Organisms: None Reported Past Surgical History: Appendectomy, Hysterectomy Additional Past Surgical History / Comment(s): Tubal . Colonoscopy. HIP INJECTION FOR BONE SPUR X2. Past Anesthesia/Blood Transfusion Reactions: No Reported Reaction Past Psychological History: Anxiety, Depression Additional Psychological History / Comment(s): On tx since son's 1988. Smoking Status: Never smoker Past Alcohol Use History: None Reported Past Drug Use History: None Reported - Past Family History Brother(s) Family Medical History: Cancer Additional Family Medical History / Comment(s): Esophageal cancer. Sister(s) Family Medical History: Cancer Additional Family Medical History / Comment(s): Colon cancer. Father Family Medical History: Cancer Additional Family Medical History / Comment(s): Prostate cancer. Medications and Allergies Home Medications Medication Instructions Recorded Confirmed Type Levothyroxine Sodium [Synthroid] 75 mcg PO QAM 04/15/18 06/21/22 History Gotha Carbonate 300 mg PO QAM 04/15/18 06/21/22 History Gotha Carbonate 600 mg PO HS 04/15/18 06/21/22 History Ergocalciferol [Vitamin D2] 50,000 unit PO FR 06/09/19 06/21/22 History EPINEPHrine (Auto Inject) [Epipen] 0.3 mg IM ONCE PRN 06/21/22 06/21/22 History Apixaban [Eliquis] 2.5 mg PO BID 35 Days #70 tab 06/26/22 Rx Sennosides [Senokot] 2 tab PO DAILY PRN #60 tablet 06/26/22 Rx traMADol HCl [Ultram] 1 - 2 tab PO Q6H PRN #32 tab 06/26/22 Rx Allergies Allergy/AdvReac Type Severity Reaction Status Date / Time aspirin Allergy Itching Verified 06/26/22 07:59 egg Allergy Unknown Verified 06/26/22 07:59 milk Allergy Unknown Verified 06/26/22 07:59 tree nut [Nut] Allergy Unknown Verified 06/26/22 07:59 alendronate sodium AdvReac Tooth Decay Verified 06/26/22 07:59 [From Fosamax] codeine AdvReac "Makes me Verified 06/26/22 07:59 feel off balance" Physical Exam Vitals: Vital Signs Temp Pulse Pulse Resp BP BP Pulse Ox 06/27/22 08:00 84 96 16 06/27/22 07:30 98.2 F 84 16 121/77 96 06/27/22 00:09 97.8 F 89 17 124/73 97 06/26/22 19:03 98.3 F 100 18 121/78 95 06/26/22 16:23 96 122/78 96 06/26/22 16:07 98 129/78 99 06/26/22 15:53 98 149/82 96 06/26/22 15:24 101 H 138/76 96 06/26/22 15:08 100 135/81 99 06/26/22 14:52 97.6 F 101 H 18 147/87 98 06/26/22 14:15 81 16 149/65 96 06/26/22 13:45 87 15 154/75 97 06/26/22 13:30 84 15 140/78 100 06/26/22 13:15 90 15 132/79 100 06/26/22 13:00 78 15 156/81 100 06/26/22 12:30 92 16 155/76 100 06/26/22 12:15 80 16 172/82 100 06/26/22 11:45 72 128/71 99 06/26/22 11:30 67 16 127/72 99 06/26/22 11:15 80 16 143/82 99 06/26/22 11:00 81 16 131/72 99 06/26/22 10:45 85 16 127/66 100 Intake and Output 06/26/22 06/27/22 06/27/22 22:59 06:59 14:59 Intake Total 330 Balance 330 Intake: Intake, IV Titration 330 Amount Sodium Chloride 0.9% 1, 280 000 ml @ 70 mls/hr IV . [id number] CASEY Rx#:[id number] ceFAZolin 2 gm In Sodium 50 Chloride 0.9% 50 ml @ 100 mls/hr IVPB Q8H CASEY Rx#: [id number] Other: # Voids 1 PHYSICAL EXAM: VITAL SIGNS: [As above] GENERAL: Sitting up in bed, no acute distress HEENT: Conjunctivae normal. eyes normal. MMM. NECK: Supple, No JVD. No thyroid enlargement. No LNs CARDIOVASCULAR: S1, S2 regular.. No murmur RESPIRATION: Unlabored, Breath sounds diminished in the bases. No rhonchi or crackles. No bronchial breathing. ABDOMEN: Soft, nontender . No guarding. no masses palpable. No ascites, No hepatosplenomegaly.Bowel sounds heard. LEGS: Right lower extremity dressing clean dry and intact, minimal edema, no calf tenderness, positive DP pulse. PSYCHIATRY: Alert and oriented X3, mood and affect normal. NERVOUS SYSTEM: Cranial N 2-12 grossly normal.No focal deficits. Strength and sensation grossly intact. Skin: Warm and dry, no rash Results CBC & Chem 7: 06/27/22 04:52 Labs: Abnormal Lab Results - Last 24 Hours (Table) 06/27/22 Range/Units 04:52 WBC 13.37 H (4.50-10.00) X 10*3/uL RBC 3.56 L (4.10-5.20) X 10*6/uL Hgb 10.4 L (12.0-15.0) g/dL Hct 33.9 L (37.2-46.3) % MCHC 30.7 L (32.0-37.0) g/dL MPV 12.7 H (9.5-12.2) fL Immature Gran # 0.05 H (0.00-0.04) X 10*3/uL Neutrophils # 11.03 H (1.80-7.70) X 10*3/uL Eosinophils # 0 L (0.04-0.35) X 10*3/uL Assessment and Plan Assessment: Right hip osteoarthritis, failed conservative treatment, status post right total hip after plasty with direct anterior approach Hypothyroid Hyperlipidemia History of constipation Anxiety Depression Plan: Continue on current medication regime ,monitoring and symptomatic treatment. Aggressive pulmonary toileting with incentive spirometer reinforced. Home meds reviewed and resumed accordingly. History of constipation, Senokot included in med regimen. DVT prophylaxis and pain management as per primary. PT. Thank you for the consult. Follow-up with PCP 1 week after discharge. The impression and plan of care has been dictated as directed. : I performed a history and examination of this patient, discussed the same with the dictator. I agree with the dictator's note ,documented as a scribe. Any additional findings or plans will be noted.
--- NOTE | 2022-06-27 11:39 | P.PN ---
Subjective Progress Note Date: 06/27/22 This is a 72-year-old female who is status post right total hip arthroplasty. This is postoperative day #1 and patient is seen and evaluated at bedside with Dr. Yash Cevallos. Patient states that she is doing well and has been working with physical therapy. Objective - Vital Signs Vital signs: Vital Signs Temp 98.2 F 06/27/22 07:30 Pulse 84 06/27/22 07:30 Resp 16 06/27/22 07:30 BP 121/77 06/27/22 07:30 Pulse Ox 96 06/27/22 07:30 FiO2 Intake & Output 06/26/22 06/27/22 06/27/22 18:59 06:59 18:59 Intake Total 1481 Output Total 300 Balance 1181 Weight 83.7 kg Intake: IV 1151 Intake, IV Titration 330 Amount Sodium Chloride 0.9% 1, 280 000 ml @ 70 mls/hr IV . [id number] CASEY Rx#:[id number] ceFAZolin 2 gm In Sodium 50 Chloride 0.9% 50 ml @ 100 mls/hr IVPB Q8H CASEY Rx#: [id number] Output: Estimated Blood Loss 300 Other: # Voids 1 - Exam Vital signs are stable. Patient is in no acute distress and is alert and or iented 3. Calf is soft and nontender to palpation. Dressing is clean, dry, and intact. Patient has full foot and ankle motion without pain or difficulty. Sensation intact. Neurovascular status and circulatory status are intact. - Labs CBC & Chem 7: 06/27/22 04:52 Assessment and Plan (1) S/P total hip arthroplasty Current Visit: Yes Status: Acute Code(s): Z96.649 - PRESENCE OF UNSPECIFIED ARTIFICIAL HIP JOINT SNOMED Code(s): 924192843301 (2) Primary localized osteoarthritis of right hip Current Visit: Yes Status: Acute Code(s): M16.11 - UNILATERAL PRIMARY OSTEOARTHRITIS, RIGHT HIP SNOMED Code(s): 499602214017928 Plan: Continue routine postop care and pain control. Continue anticoagulation. Weightbearing as tolerated with a walker. Leave dressing in place for 7 days. Appreciate input from medicine. Anticipate discharge to [facility] in the next 24-48 hours.
--- NOTE | 2022-06-27 11:41 | P.DS ---
Providers Expected date of discharge: 06/27/22 Attending physician: Yash Cevallos Consults: 06/26/22 08:56 Consult Physician Routine Consulting Provider: Jose Miguel Lamas Consult Reason/Comments: medical management Do you want consulting provider notified?: Yes Primary care physician: Jose Miguel Lamas MD - Discharge Diagnosis(es) (1) S/P total hip arthroplasty Current Visit: Yes Status: Acute (2) Primary localized osteoarthritis of right hip Current Visit: Yes Status: Acute Hospital Course: This is a 72-year-old female with known history of degenerative arthritis of the right hip. The patient presented for evaluation as an outpatient. After discussion and consideration patient elects to proceed with total hip arthroplasty. The patient is seen preoperatively by Dr. Cevallos and medically cleared for surgery by their primary care physician. Patient is admitted to [facility] on 06/26/2022 for total hip arthroplasty. The procedure is performed without complication or sequelae. The patient is doing well postoperatively. Labs and vital signs are stable on day of discharge. On day of discharge patient's hip incision is healing well. There is minimal erythema. There is no drainage noted at this time. There is minimal soft tissue swelling to the hip and thigh. Patient has full foot and ankle motion without difficulty or pain. Calf is soft and nontender to palpation. Neurovascular status to the right lower extremity is intact. Patient is discharged to rehab in good condition. Please see [facility] rec for accurate list of home medications. Plan - Discharge Summary Discharge Rx Participant: No New Discharge Prescriptions: New Apixaban [Eliquis] 2.5 mg PO BID 35 Days #70 tab Sennosides [Senokot] 2 tab PO DAILY PRN #60 tablet PRN Reason: Constipation traMADol HCl [Ultram] 1 - 2 tab PO Q6H PRN #32 tab PRN Reason: Pain No Action Levothyroxine Sodium [Synthroid] 75 mcg PO QAM [place] Carbonate 300 mg PO QAM [place] Carbonate 600 mg PO HS Ergocalciferol [Vitamin D2] 50,000 unit PO FR EPINEPHrine (Auto Inject) [Epipen] 0.3 mg IM ONCE PRN PRN Reason: Anaphylaxis Discharge Medication List Levothyroxine Sodium [Synthroid] 75 mcg PO QAM 04/15/18 [History] [place] Carbonate 300 mg PO QAM 04/15/18 [History] [place] Carbonate 600 mg PO HS 04/15/18 [History] Ergocalciferol [Vitamin D2] 50,000 unit PO FR 06/09/19 [History] EPINEPHrine (Auto Inject) [Epipen] 0.3 mg IM ONCE PRN 06/21/22 [History] Apixaban [Eliquis] 2.5 mg PO BID 35 Days #70 tab 06/26/22 [Rx] Sennosides [Senokot] 2 tab PO DAILY PRN #60 tablet 06/26/22 [Rx] traMADol HCl [Ultram] 1 - 2 tab PO Q6H PRN #32 tab 06/26/22 [Rx] Follow up Appointment(s)/Referral(s): [facility], [NON-STAFF] - As Needed Yash Cevallos DO [Doctor of Osteopathic Medicine] - 2 Weeks Activity/Diet/Wound Care/Special Instructions: Weightbearing as tolerated with walker. Leave dressing intact. Dressing may be removed by home care nurse or by patient in 7 days. Then change dressing twice daily until follow up. May shower with initial dressing intact and after removal. If dressing become saturated, please remove. Please take Eliquis twice daily for 35 days to prevent blood clots. Recommend use of compression stockings daily until follow up to help prevent swelling and blood clots. May remove at night before sleeping. Please follow-up with [facility] in 2 weeks and call with any questions or concerns, . Discharge Disposition: TRANSFER TO SNF/ECF
[2022-06-27 13:41] VITALS: BP 129/81; PULSE 96; RESP 17; TEMP 97.9
== END 2022-06-27 15:03 ==
LOC: OR 07:18 → 4SSUR 10:32 → OR 06-27 15:03
PROVIDERS: ATTEND Orthopaedic Surgery
DX: M16.11 Unilateral primary osteoarthritis, right hip (principal); E78.5 Hyperlipidemia, unspecified; G89.18 Other acute postprocedural pain; Z88.5 Allergy status to narcotic agent; Z90.710 Acquired absence of both cervix and uterus
CPT/HCPCS: 97161; 97166; 64447; 76942; 86900; 86901; 85025; 86850; 88300; 73501; 27130; C1776; J2250; J1200; J1100; J0690 ×3; J2405; J2795; C9113 ×2; J1170 ×2; J3010

== ENCOUNTER → 2023-06-04 | Outpatient (CLI) | payer MEDICARE, OTHER ==
--- NOTE | 2023-06-05 18:29 | MM ---
Reason for Exam: Screening (asymptomatic). Last mammogram was performed 1 year(s) and 1 month(s) ago. Patient History: Menarche at age 17. First Full-Term at age 19. Left ovary removed at age 68. Right ovary removed at age 68. Hysterectomy at age 68. Postmenopausal. Hormonal Contraceptives for 5 years from age 19 until age 24. 1989, Benign Excisional Biopsy on the right side. 09/06/2007, Benign Core Biopsy on the right side. Paternal aunt had breast cancer, age 60. Sister had breast cancer, age 20. Risk Values: Maria 5 year model risk: 4.6%. NCI Lifetime model risk: 10.4%. Prior Study Comparison: 03/26/2020 Bilateral Screening Mammogram, [facility]. 05/05/2021 Bilateral Screening Mammogram, [facility]. 05/08/2022 Bilateral MG 3D screening mammo w/cad, [facility]. Tissue Density: The breast tissue is heterogeneously dense. This may lower the sensitivity of mammography. Findings: Analyzed By CAD. Abdomen appears symmetrical and stable no significant interval change is evident. Core marker is within normal right breast. No suspicious groups of microcalcifications, spiculated or lobular masses, architectural distortion or other secondary signs of malignancy are mammographically apparent. Overall Assessment: Benign, BI-RAD 2 Management: Screening Mammogram of both breasts in 1 year. A negative mammogram report should not preclude additional follow up of suspicious palpable abnormalities. Patient should continue monthly self breast exam. A clinical breast exam by your physician is recommended on an annual basis and results should be correlated with mammographic findings. Electronically signed and approved by: Harvey Phillip D.O. Radiologis
== END | disposition home or self-care (01) ==
LOC: RADMAMWWP 13:53
PROVIDERS: ATTEND Family Medicine
DX: Z12.31 Encounter for screening mammogram for malignant neoplasm of breast (principal); Z78.0 Asymptomatic menopausal state; Z80.3 Family history of malignant neoplasm of breast
CPT/HCPCS: 77063; 77067

== ENCOUNTER → 2023-08-03 | Outpatient (CLI) | payer MEDICARE, OTHER ==
[2023-08-03 12:34] LABS: African American GFR (CKD) 73 (>60 ml/min/1.73 sqM); Blood Urea Nitrogen 10 mg/dL (7-17); Non-African American GFR(CKD) 64 (>60 ml/min/1.73 sqM)
--- NOTE | 2023-08-03 14:19 | CT ---
EXAMINATION: CT ABDOMEN AND PELVIS WITH IV CONTRAST DATE OF EXAMINATION: 08/03/2023. COMPARISON: None available. INDICATION: Epigastric and flank pain. PROCEDURE: Axial CT of the abdomen and pelvis was performed with contrast and sagittal and coronal reformatted images were performed. CT dose lowering techniques were used, to include: automated expos ure control, adjustment for patient size, and/or use of iterative reconstruction. FINDINGS: LOWER CHEST : The visualized lung bases are clear. There are no pleural or pericardial effusions. ABDOMEN: Liver and Biliary system: Normal. Adrenal glands: Normal. Kidneys and ureters: Multiple parapelvic cysts are seen within the kidneys bilaterally. There are a f ew simple parenchymal cysts as well as subcentimeter hypodensities also seen within the kidneys bilat erally that are too small to fully characterize. Spleen: Normal. Pancreas: Normal. Gallbladder: Normal. Lymph nodes, Peritoneum and mesentery: There is no mesenteric or retroperitoneal lymphadenopathy. Gastrointestinal tract: There are no dilated loops of bowel or free intraperitoneal air. The appe ndix is not clearly seen with no secondary changes of appendicitis otherwise identified. Aorta/IVC: Mild vascular calcification is seen throughout the abdominal aorta without evidence of a neurysmal dilatation or dissection. IVC normal. Abdominal wall: Normal. PELVIS: Fluid: There is no free fluid in the pelvis. Lymph Nodes: There is no pelvic or inguinal lymphadenopathy.. Urinary bladder: Normal. BONES: There is a right total hip arthroplasty. Multilevel degenerative disc and facet changes are s een throughout the spine. There are no acute osseous abnormalities. ADDITIONAL SIGNIFICANT FINDINGS: None. IMPRESSION: No acute process within the abdomen or pelvis.
== END | disposition home or self-care (01) ==
LOC: RADCTMAIN 11:51
PROVIDERS: ATTEND Family Medicine
DX: K58.9 Irritable bowel syndrome, unspecified (principal); N28.1 Cyst of kidney, acquired; E66.01 Morbid (severe) obesity due to excess calories; R10.13 Epigastric pain
CPT/HCPCS: 82565; 84520; 74177; 36415; Q9967

== ENCOUNTER 2023-08-09 06:53 | Day surgery (SDC) | payer MEDICARE, OTHER ==
[2023-08-07 15:56] VITALS: BMI 29.2
[2023-08-09] MEDS ORDERED: LIDOCAINE 1% (10MG/ML) FOR IV START INTRADERMA PRN (07:13)
[2023-08-09] MEDS: LACTATED RINGERS 1,000 ML IV SCH (07:29)
[2023-08-09] MEDS ORDERED: LIDOCAINE 1% INJ 10MG/ML (20 ML MDV) ONE (07:37)
[2023-08-09] MEDS ORDERED: PROPOFOL 10 MG/ML 20 ML VIAL IV ONE (07:37)
[2023-08-09 07:40] VITALS: TEMP 98.6
--- NOTE | 2023-08-09 07:51 | P.GSHP ---
History of Present Illness H&P Date: 08/09/23 Chief Complaint: GERD, left lower quadrant pain Is a 73-year-old female with complaints of GERD. Quadrant pain. Patient presents today for EGD and colonoscopy. Past Medical History Past Medical History: Osteoarthritis (OA), Thyroid Disorder Additional Past Medical History / Comment(s): Recent issues with gas and diarrhea.Constipation. Hx colon polyps. RT HIP SPURS History of Any Multi-Drug Resistant Organisms: None Reported Past Surgical History: Appendectomy, Hysterectomy Additional Past Surgical History / Comment(s): Tubal . Colonoscopy. HIP INJECTION FOR BONE SPUR, Past Anesthesia/Blood Transfusion Reactions: No Reported Reaction Smoking Status: Never smoker - Past Family History Brother(s) Family Medical History: Cancer Additional Family Medical History / Comment(s): Esophageal cancer. Sister(s) Family Medical History: Cancer Additional Family Medical History / Comment(s): Colon cancer. Father Family Medical History: Cancer Additional Family Medical History / Comment(s): Prostate cancer. Medications and Allergies Home Medications Medication Instructions Recorded Confirmed Type Levothyroxine Sodium [Synthroid] 75 mcg PO QAM 04/15/18 08/07/23 History [place] Carbonate 300 mg PO QAM 04/15/18 08/07/23 History [place] Carbonate 600 mg PO HS 04/15/18 08/07/23 History Ergocalciferol [Vitamin D2 50,000 unit PO FR 06/09/19 08/07/23 History (DRISDOL)] EPINEPHrine (Auto Inject) [Epipen] 0.3 mg IM ONCE PRN 06/21/22 08/07/23 History Dicyclomine [Bentyl] 20 mg PO TID 08/07/23 08/07/23 History Allergies Allergy/AdvReac Type Severity Reaction Status Date / Time aspirin Allergy Itching Verified 08/09/23 07:13 egg Allergy Unknown Verified 08/09/23 07:13 milk Allergy Unknown Verified 08/09/23 07:13 tree nut [Nut] Allergy Unknown Verified 08/09/23 07:13 alendronate sodium AdvReac Tooth Decay Verified 08/09/23 07:13 [From Fosamax] codeine AdvReac "Makes me Verified 08/09/23 07:13 feel off balance" Surgical - Exam Vital Signs Temp Pulse Resp BP Pulse Ox 98.6 F 79 16 165/77 97 08/09/23 07:17 08/09/23 07:17 08/09/23 07:17 08/09/23 07:17 08/09/23 07:17 - General well developed, well nourished, no distress - Eyes PERRL - ENT normal pinna - Neck no masses - Respiratory normal expansion - Cardiovascular Rhythm: regular - Abdomen Abdomen: soft, non tender Assessment and Plan Assessment: GERD, left upper quadrant pain. We'll perform EGD and colonoscopy.
--- NOTE | 2023-08-09 08:09 | P.OP ---
Date of Procedure: 08/09/23 Preoperative Diagnosis: GERD Left lower quadrant pain Postoperative Diagnosis: Antral gastritis Small hiatal hernia Mild esophagitis Internal and external hemorrhoids Procedure(s) Performed: EGD Colonoscopy Anesthesia: MAC Surgeon: Marco A Colindres Pathology: other (Antrum, esophagus) Condition: stable Disposition: PACU Description of Procedure: The patient's placed on the endoscopy table in the lateral position. He the gastroscope placed oropharynx passed in the esophagus scope placement pylorus. The first and second portion of the duodenum appeared normal. Scope summer back the antrum this. Mildly inflamed. Biopsies and scope was unretroflexed and remainder the stomach appeared normal. There was a small sliding hiatal hernia. The GE junction was at 40 cm per the distal esophagus appeared mildly inflamed. A biopsies performed. The proximal esophagus appeared normal. Scope withdrawn for patient. Next digital rectal exam was performed. This revealed internal and external hemorrhoids. Flexible colonoscope was then placed patient anus passed rotator colon. The ileocecal valve was not visualized. The bowel was quite tortuous. The visualized right colon appeared normal. The transverse colon, descending colon and sigmoid colon appeared normal. The scope was then brought back the rectum and this appeared normal. Scope withdrawn through the anus. And internal and external hemorrhoids were noted. Scope withdrawn for patient.
[2023-08-09 08:50] VITALS: BP 131/83; PULSE 60; RESP 18
== END 2023-08-09 08:50 | disposition home or self-care (01) ==
LOC: ORWHC2ENDO 06:53
PROVIDERS: ATTEND Surgery
DX: K29.50 Unspecified chronic gastritis without bleeding (principal); K21.00 Gastro-esophageal reflux disease with esophagitis, without bleeding; K44.9 Diaphragmatic hernia without obstruction or gangrene; K64.4 Residual hemorrhoidal skin tags; K64.8 Other hemorrhoids; M19.90 Unspecified osteoarthritis, unspecified site; Z80.0 Family history of malignant neoplasm of digestive organs; Z88.5 Allergy status to narcotic agent; Z90.49 Acquired absence of other specified parts of digestive tract; Z79.899 Other long term (current) drug therapy
CPT/HCPCS: 88305; 45378; 43239; J2001; J2704

== ENCOUNTER 2024-01-24 13:50 | Inpatient (IN) | payer MEDICARE, OTHER ==
--- NOTE | 2024-01-24 14:29 | ED ---
Altered Mental Status HPI - General Chief Complaint: Altered Mental Status Stated Complaint: slurred speech Source: patient, RN notes reviewed, old records reviewed Mode of arrival: ambulatory Limitations: no limitations - History of Present Illness Initial Comments: This is a 73-year-old female to ER for altered mental status not acting responding appropriately. Patient has been feeling unwell she states for 2 or 3 days. Was found by neighbors to be wandering and confused today which is abnormal from her normal baseline MD Complaint: altered mental status, confusion, weakness -: hour(s) Severity: moderate Consistency of Symptoms: getting worse Associated Symptoms: denies other symptoms Treatments Prior to Arrival: other pre-hospital medication (0) - Related Data Home Medications Medication Instructions Recorded Confirmed [place] Carbonate 300 mg PO QAM 04/15/18 01/24/24 [place] 600 mg PO HS 04/15/18 01/24/24 Ergocalciferol [Vitamin D2 50,000 unit PO FR 06/09/19 01/24/24 (DRISDOL)] Dicyclomine [Bentyl] 20 mg PO TID PRN 08/07/23 01/24/24 Levothyroxine Sodium [Synthroid] 175 mcg PO DAILY 01/24/24 01/24/24 Allergies Allergy/AdvReac Type Severity Reaction Status Date / Time aspirin Allergy Itching Verified 01/24/24 17:07 egg Allergy Unknown Verified 01/24/24 17:07 milk Allergy Unknown Verified 01/24/24 17:07 tree nut [Nut] Allergy Unknown Verified 01/24/24 17:07 alendronate sodium AdvReac Tooth Decay Verified 01/24/24 17:07 [From Fosamax] codeine AdvReac "Makes me Verified 01/24/24 17:07 feel off balance" Review of Systems ROS Statement: Those systems with pertinent positive or pertinent negative responses have been documented in the HPI. ROS Other: All systems not noted in ROS Statement are negative. Past Medical History Past Medical History: Osteoarthritis (OA), Thyroid Disorder Additional Past Medical History / Comment(s): Recent issues with gas and diarrhea.Constipation. Hx colon polyps. RT HIP SPURS History of Any Multi-Drug Resistant Organisms: None Reported Past Surgical History: Appendectomy, Hysterectomy Additional Past Surgical History / Comment(s): Tubal . Colonoscopy. HIP INJECTION FOR BONE SPUR, Past Anesthesia/Blood Transfusion Reactions: No Reported Reaction Past Psychological History: Anxiety, Depression Smoking Status: Never smoker Past Alcohol Use History: None Reported Past Drug Use History: None Reported - Past Family History Brother(s) Family Medical History: Cancer Additional Family Medical History / Comment(s): Esophageal cancer. Sister(s) Family Medical History: Cancer Additional Family Medical History / Comment(s): Colon cancer. Father Family Medical History: Cancer Additional Family Medical History / Comment(s): Prostate cancer. General Exam Limitations: no limitations, altered mental status, physical limitation General appearance: alert, in no apparent distress, anxious Head exam: Present: atraumatic, normocephalic, normal inspection Eye exam: Present: normal appearance, PERRL, EOMI. Absent: scleral icterus, conjunctival injection, periorbital swelling ENT exam: Present: normal exam, mucous membranes moist Neck exam: Present: normal inspection. Absent: tenderness, meningismus, lymphadenopathy Respiratory exam: Present: normal lung sounds bilaterally. Absent: respiratory distress, wheezes, rales, rhonchi, stridor Cardiovascular Exam: Present: regular rate, normal rhythm, normal heart sounds. Absent: systolic murmur, diastolic murmur, rubs, gallop, clicks GI/Abdominal exam: Present: soft, normal bowel sounds. Absent: distended, tenderness, guarding, rebound, rigid Extremities exam: Present: normal inspection, full ROM, normal capillary refill. Absent: tenderness, pedal edema, joint swelling, calf tenderness Back exam: Present: normal inspection Neurological exam: Present: alert, oriented X3, CN II-XII intact Psychiatric exam: Present: normal affect, normal mood Skin exam: Present: warm, dry, intact, normal color. Absent: rash Course Vital Signs 01/24/24 01/24/24 01/24/24 13:59 17:18 18:45 Temperature 98.4 F 97.7 F Pulse Rate 66 78 99 Pulse Rate [ Pulse Oximetery ] Respiratory 20 16 18 Rate Blood Pressure 128/74 118/71 140/78 Blood Pressure [Right Arm] O2 Sat by Pulse 96 97 98 Oximetry 01/24/24 01/24/24 21:52 22:37 Temperature 98.5 F 98.3 F Pulse Rate 76 Pulse Rate [ 67 Pulse Oximetery ] Respiratory 18 16 Rate Blood Pressure 140/68 Blood Pressure 138/80 [Right Arm] O2 Sat by Pulse 99 97 Oximetry - Reevaluation(s) Reevaluation #1: 01/24/24 14:03 QN completed by myself Dr Brown Medical records reviewed Reevaluation #2: 01/24/24 18:03 His symptoms improved patient symptoms are unchanged here in the ER Reevaluation #3: 01/24/24 18:04 Patient informed of results and questions answered Reevaluation #4: Was pt. sent in by a medical professional or institution (, [facility], AMUSEMENT RIDE INSPECTOR, urgent care, hospital, or halfway...) When possible be specific @ -no Did you speak to anyone other than the patient for history (EMS, parent, family, police, friend...)? What history was obtained from this source @ -no Did you review nursing and triage notes (agree or disagree)? Why? @ -agree Are old charts reviewed (outside hosp., previous admission, EMS record, old EKG, old radiological studies, urgent care reports/EKG's, halfway records)? Report findings @ -yes Differential Diagnosis (chest pain, altered mental status, abdominal pain women, abdominal pain men, vaginal bleeding, weakness, fever, dyspnea, syncope, headache, dizziness, GI bleed, back pain, seizure, CVA, palpatations, mental health, musculoskeletal)? @ -prior EKG interpreted by me (3pts min.). @ -yes X-rays interpreted by me (1pt min.). @ -yes negative for acute disease CT interpreted by me (1pt min.). @ -yes negative for acute disease U/S interpreted by me (1pt. min.). @ -no What testing was considered but not performed or refused? (CT, X-rays, U/S, labs)? Why? @ -none What meds were considered but not given or refused? Why? @ -none Did you discuss the management of the patient with other professionals (professionals i.e. , [facility], AMUSEMENT RIDE INSPECTOR, lab, RT, psych nurse, social worker psychiatric, drag out worker, teacher, personal banking officer, pillowcase turner)? Give summary @ -no Was smoking cessation discussed for >3mins.? @ -no Was critical care preformed (if so, how long)? @ -no Were there social determinants of health that impacted care today? How? (Homelessness, low income, unemployed, alcoholism, drug addiction, transportation, low edu. Level, literacy, decrease access to med. care, care home, rehab)? @ -none Was there de-escalation of care discussed even if they declined (Discuss DNR or withdrawal of care, Hospice)? DNR status @ -no What co-morbidities impacted this encounter? (DM, HTN, Smoking, COPD, CAD, Cancer, CVA, ARF, Chemo, Hep., AIDS, mental health diagnosis, sleep apnea, morbid obesity)? @ -none Was patient admitted / discharged? Hospital course, mention meds given and route, prescriptions, significant lab abnormalities, going to OR and other pertinent info. @ - 73 female to ER for evaluation of significant altered mental status. Patient will admit for further evaluation and monitoring of encephalopathy Admit Undiagnosed new problem with uncertain prognosis? @ -no Drug Therapy requiring intensive monitoring for toxicity (Heparin, Nitro, Insuli n, Cardizem)? @ -no Were any procedures done? @ -no Diagnosis/symptom? @ -altered mental status Acute, or Chronic, or Acute on Chronic? @ -Acute Uncomplicated (without systemic symptoms) or Complicated (systemic symptoms)? @ -Complicated Side effects of treatment? @ -no Exacerbation, Progression, or Severe Exacerbation? @ -exacerbation Poses a threat to life or bodily function? How? (Chest pain, USA, CA, pneumonia, PE, COPD, DKA, ARF, appy, cholecystitis, CVA, Diverticulitis, Homicidal, S uicidal, threat to staff... and all critical care pts) @ -yes extremes of age Reevaluation #5: Differential Altered Mental Status: Hypoglycemia, DKA, hypercapnia, ETOH, overdose, CO poisoning, trauma, myxedema coma, HTN encephalopathy, infection, encephalitis, psychosis, intercranial hemorrhage, hepatic encephalopathy, meningitis, CVA, this is not meant to be an all-inclusive list - Consultations Consultation #1: spoke w Dr. Lamas who agrees to admit this patient Medical Decision Making - Medical Decision Making 73 female to ER for evaluation of significant altered mental status. Patient will admit for further evaluation and monitoring of encephalopathy - Lab Data Result diagrams: 01/28/24 03:22 01/31/24 03:47 Lab Results 01/24/24 01/24/24 01/24/24 Range/Units 15:57 15:57 15:57 WBC 11.2 H (3.8-10.6) k/uL RBC 4.76 (3.80-5.40) m/uL Hgb 14.6 (11.4-16.0) gm/dL Hct 44.8 (34.0-46.0) % MCV 94.0 (80.0-100.0) fL MCH 30.7 (25.0-35.0) pg MCHC 32.6 (31.0-37.0) g/dL RDW 13.0 (11.5-15.5) % Plt Count 186 (150-450) k/uL MPV 11.0 Neutrophils % 85 % Lymphocytes % 9 % Monocytes % 3 % Eosinophils % 2 % Basophils % 0 % Neutrophils # 9.5 H (1.3-7.7) k/uL Lymphocytes # 1.1 (1.0-4.8) k/uL Monocytes # 0.3 (0-1.0) k/uL Eosinophils # 0.2 (0-0.7) k/uL Basophils # 0.0 (0-0.2) k/uL PT 10.7 (10.0-12.5) sec INR 1.0 (<1.2) APTT 24.7 (22.0-30.0) sec Sodium 136 L (137-145) mmol/L Potassium 3.5 (3.5-5.1) mmol/L Chloride 104 (98-107) mmol/L Carbon Dioxide 24 (22-30) mmol/L Anion Gap 8 mmol/L BUN 14 (7-17) mg/dL Creatinine 1.49 H (0.52-1.04) mg/dL Est GFR (CKD-EPI)AfAm 40 (>60 ml/min/1.73 sqM) Est GFR (CKD-EPI)NonAf 35 (>60 ml/min/1.73 sqM) Glucose 77 (74-99) mg/dL Calcium 10.2 (8.4-10.2) mg/dL Phosphorus 3.6 (2.5-4.5) mg/dL Magnesium 2.2 (1.6-2.3) mg/dL Total Bilirubin 1.2 (0.2-1.3) mg/dL AST 37 H (14-36) U/L ALT 35 H (4-34) U/L Alkaline Phosphatase 107 (38-126) U/L Ammonia (<30) umol/L Troponin I (0.000-0.034) ng/mL Total Protein 7.0 (6.3-8.2) g/dL Albumin 4.6 (3.5-5.0) g/dL Serum Alcohol <10 mg/dL 01/24/24 01/24/24 Range/Units 15:57 15:57 WBC (3.8-10.6) k/uL RBC (3.80-5.40) m/uL Hgb (11.4-16.0) gm/dL Hct (34.0-46.0) % MCV (80.0-100.0) fL MCH (25.0-35.0) pg MCHC (31.0-37.0) g/dL RDW (11.5-15.5) % Plt Count (150-450) k/uL MPV Neutrophils % % Lymphocytes % % Monocytes % % Eosinophils % % Basophils % % Neutrophils # (1.3-7.7) k/uL Lymphocytes # (1.0-4.8) k/uL Monocytes # (0-1.0) k/uL Eosinophils # (0-0.7) k/uL Basophils # (0-0.2) k/uL PT (10.0-12.5) sec INR (<1.2) APTT (22.0-30.0) sec Sodium (137-145) mmol/L Potassium (3.5-5.1) mmol/L Chloride (98-107) mmol/L Carbon Dioxide (22-30) mmol/L Anion Gap mmol/L BUN (7-17) mg/dL Creatinine (0.52-1.04) mg/dL Est GFR (CKD-EPI)AfAm (>60 ml/min/1.73 sqM) Est GFR (CKD-EPI)NonAf (>60 ml/min/1.73 sqM) Glucose (74-99) mg/dL Calcium (8.4-10.2) mg/dL Phosphorus (2.5-4.5) mg/dL Magnesium (1.6-2.3) mg/dL Total Bilirubin (0.2-1.3) mg/dL AST (14-36) U/L ALT (4-34) U/L Alkaline Phosphatase (38-126) U/L Ammonia <9 (<30) umol/L Troponin I <0.012 (0.000-0.034) ng/mL Total Protein (6.3-8.2) g/dL Albumin (3.5-5.0) g/dL Serum Alcohol mg/dL - EKG Data -: EKG Interpreted by Me (EKG is sinus 62 [place] 169 QRS 132 QTc 468) - Radiology Data Radiology results: report reviewed (CT brain and chest x-ray are negative for acute disease), image reviewed Disposition Clinical Impression: Altered mental status, Delirium due to general medical condition Disposition: ADMITTED IP TO THIS HOSP Condition: Fair Is patient prescribed a controlled substance at d/c from ED?: No
--- NOTE | 2024-01-24 15:23 | XR ---
EXAMINATION TYPE: XR chest 1V portable DATE OF EXAM: 01/24/2024 3:16 PM CLINICAL INDICATION: Female, 73 years old with history of altered mental status; [facility] COMPARISON: None TECHNIQUE: XR chest 1V portable Frontal view of the chest. FINDINGS: Lungs/Pleura: There is no evidence of pleural effusion, focal consolidation, or pneumothorax. Pulmonary vascularity: Unremarkable. Heart/mediastinum: Cardiomediastinal silhouette is unremarkable. Musculoskeletal: No acute osseous pathology. Other findings: None Lines/Tubes: IMPRESSION: No acute cardiopulmonary disease/process.
--- NOTE | 2024-01-24 15:29 | CT ---
EXAMINATION TYPE: CT brain wo con CT DLP: 1137.3 mGycm, Automated exposure control for dose reduction was used. DATE OF EXAM: 01/24/2024 3:16 PM COMPARISON: None. CLINICAL INDICATION:Female, 73 years old with history of Altered mental status, AMS TECHNIQUE: Brain: Multiple axial CT images of the brain were obtained without IV contrast. . Coronal and sagitta l reformats reviewed. FINDINGS: Brain: Extra-axial spaces: No abnormal extra-axial fluid collections. Ventricular system: Within normal limits Cerebral parenchyma: No acute intraparenchymal hemorrhage or mass effect. The lane-white junction is well differentiated. Scattered hypoattenuating areas are seen within the periventricular white matte r. Cerebellum: Unremarkable. Mass effect: No evidence of midline shift. Intracranial vasculature: Atherosclerotic calcifications of the intracranial vessels. Soft tissues: Normal. Calvarium/osseous structures: No depressed skull fracture. Paranasal sinuses and mastoid air cells: Clear Visualized orbits: Bilateral aphakia IMPRESSION: 1. No acute intracranial process. 2. Nonspecific white matter changes, likely secondary to chronic small vessel ischemic disease.
[2024-01-24 16:39] LABS: Basophils % (A) 0 %; Eosinophils # (A) 0.2 k/uL (0-0.7); Eosinophils % (A) 2 %; HCT 44.8 % (34.0-46.0); HGB 14.6 gm/dL (11.4-16.0); Lymphocytes # (A) 1.1 k/uL (1.0-4.8); Lymphocytes % (A) 9 %; MCH 30.7 pg (25.0-35.0); MCHC 32.6 g/dL (31.0-37.0); Monocytes # (A) 0.3 k/uL (0-1.0); Monocytes % (A) 3 %; Neutrophils # (A) 9.5 k/uL (1.3-7.7); Neutrophils % (A) 85 %; Platelet Count 186 k/uL (150-450); RBC 4.76 m/uL (3.80-5.40); WBC 11.2 k/uL (3.8-10.6)
[2024-01-24 16:46] LABS: Partial Thromboplastin Time 24.7 sec (22.0-30.0); Prothrombin Time 10.7 sec (10.0-12.5)
[2024-01-24 16:48] LABS: ALT 35 U/L (4-34); AST 37 U/L (14-36); African American GFR (CKD) 40 (>60 ml/min/1.73 sqM); Albumin 4.6 g/dL (3.5-5.0); Alcohol <10 mg/dL; Alkaline Phosphatase 107 U/L (38-126); Anion Gap 8 mmol/L; Blood Urea Nitrogen 14 mg/dL (7-17); Calcium 10.2 mg/dL (8.4-10.2); Carbon Dioxide 24 mmol/L (22-30); Chloride 104 mmol/L (98-107); Glucose 77 mg/dL (74-99); Magnesium 2.2 mg/dL (1.6-2.3); Non-African American GFR(CKD) 35 (>60 ml/min/1.73 sqM); Phosphorus 3.6 mg/dL (2.5-4.5); Potassium 3.5 mmol/L (3.5-5.1); Sodium 136 mmol/L (137-145); Total Bilirubin 1.2 mg/dL (0.2-1.3)
[2024-01-24] MEDS ORDERED: NALOXONE 0.4 MG/ML 1 ML VIAL IV PRN (18:07)
[2024-01-24 20:17] LABS: Appearance,Urine Clear (Clear); Bacteria,Urine Rare /hpf; Bilirubin,Urine Negative (Negative); Blood,Urine Negative (Negative); Color,Urine Colorless; Glucose,Urine (UA) Negative (Negative); Ketones,Urine 1+ (Negative); Leukocyte Esterase,Urine Trace (Negative); Nitrite,Urine Negative (Negative); PH, Urine 6.5 (5.0-8.0); Protein,Urine Negative (Negative); RBC,Urine <1 /hpf (0-5); Specific Gravity,Urine 1.004 (1.001-1.035); Squamous Epithelial Cell,Urine 1 /hpf (0-4); Urobilinogen,Urine <2.0 mg/dL (<2.0); WBC,Urine 4 /hpf (0-5)
[2024-01-24 20:34] LABS: Amphetamine Screen,Urine Not Detected (NotDetected); Barbiturate Screen,Urine Not Detected (NotDetected); Benzodiazepines Screen,Urine Not Detected (NotDetected); Cocaine Screen,Urine Not Detected (NotDetected); Methadone Screen, Urine Not Detected (NotDetected); Opiate Screen,Urine Not Detected (NotDetected); Oxycodone Screen, Urine Not Detected (NotDetected); Phencyclidine Screen,Urine Not Detected (NotDetected); Tricyclic Antidepressant,Urine Not Detected (NotDetected); Urn Cannabinoid Scrn Not Detected (NotDetected)
[2024-01-24 21:36] LABS: Glucose,Whole Blood 65 mg/dL (70-110)
[2024-01-24] MEDS: SODIUM CHLORIDE 0.9% 1,000 ML IV ONE (21:45)
[2024-01-24 23:18] LABS: Glucose,Whole Blood 93 mg/dL (70-110)
[2024-01-24] MEDS: SODIUM CHLORIDE 0.9% 500 ML 500 ML IV STA (23:44)
[2024-01-24] MEDS: SODIUM CHLORIDE 0.9% 1,000 ML IV STA (23:45)
[2024-01-24] MEDS: SODIUM CHLORIDE 0.9% 1,000 ML IV SCH (23:45)
[2024-01-25 10:41] LABS: Basophils # (A) 0.04 X 10*3/uL (0.00-0.10); Basophils % (A) 0.4 %; Eosinophils # (A) 0.14 X 10*3/uL (0.04-0.35); Eosinophils % (A) 1.3 %; HCT 39.7 % (37.2-46.3); HGB 12.8 g/dL (12.0-15.0); Lymphocytes # (A) 1.06 X 10*3/uL (0.90-5.00); Lymphocytes % (A) 10.1 %; MCH 30.3 pg (27.0-32.0); MCHC 32.2 g/dL (32.0-37.0); MCV 93.9 FL (80.0-97.0); Mean Platelet Volume 14.1 FL (9.5-12.2); Monocytes # (A) 0.64 X 10*3/uL (0.20-1.00); Monocytes % (A) 6.1 %; NRBC Per 100 WBC 0 X 10*3/uL (0.00-0.01); Neutrophils # (A) 8.56 X 10*3/uL (1.80-7.70); Neutrophils % (A) 81.7 %; Platelet Count 147 X 10*3/uL (140-440); RBC 4.23 X 10*6/uL (4.10-5.20); RDW 13.1 % (11.5-14.5); WBC 10.48 X 10*3/uL (4.50-10.00)
[2024-01-25 10:57] LABS: ALT 30 U/L (8-44); AST 27 U/L (13-35); Alkaline Phosphatase 115 U/L (41-126); BUN/Creat Ratio 9.36 Ratio (12.00-20.00); Blood Urea Nitrogen 10.3 mg/dL (9.0-27.0); Calcium 9.1 mg/dL (8.7-10.3); Carbon Dioxide 22.8 mmol/L (21.6-31.8); Chloride 111 mmol/L (96-109); Globulin 1.6 g/dL (1.6-3.3); Glucose 87 mg/dL (70-110); Magnesium 2.1 mg/dL (1.5-2.4); Potassium 3.6 mmol/L (3.5-5.5); Sodium 143 mmol/L (135-145); Total Bilirubin 0.6 mg/dL (0.3-1.2); Total Protein 5.6 g/dL (6.2-8.2)
[2024-01-25] MEDS ORDERED: DICYCLOMINE 20 MG TAB PO PRN (11:39)
--- NOTE | 2024-01-25 11:41 | P.HPIM ---
History of Present Illness H&P Date: 01/25/24 This is a 73-year-old female with past medical history significant for hypothyroidism, osteoarthritis anxiety, depression, gastroesophageal reflux disease brought into the ER with altered mental status, confusion, weakness. Patient reports she had not been feeling well for the last couple of days, d enied confusion reports she knew what she wanted to say but was unable to get the words out appropriately. ER reports patient was found by neighbors as she was wandering and appeared confused-at her normal baseline. Imaging currently unavailable. Vital signs stable. Denies chest pain, palpitations or shortness of breath. Afebrile, WBC 11.2. Hemoglobin, platelets, INR within normal limits. Sodium 136, potassium 3.5, bicarb 24, BUN 14, creatinine 1.49 magnesium 2.2, mildly elevated AST, ALT troponins negative x 1, UA reporting rare bacteria, toxicology screen reporting serum alcohol less than 10. Telemetry bedside monitor sinus rhythm. Review of Systems Review of Systems Constitutional: Denied any fatigue denied any fever. Cardio vascular: denied any chest pain, palpitations Gastrointestinal denied any nausea vomiting Pulmonary: Denied any shortness of breath cough Neurologic denied any new focal deficits All inpatient medications were reviewed and appropriate changes in these medications as dictated in the interval history and assessment and plan. Past Medical History Past Medical History: Osteoarthritis (OA), Thyroid Disorder Additional Past Medical History / Comment(s): Recent issues with gas and diarrhea.Constipation. Hx colon polyps. RT HIP SPURS History of Any Multi-Drug Resistant Organisms: None Reported Past Surgical History: Appendectomy, Hysterectomy Additional Past Surgical History / Comment(s): Tubal . Colonoscopy. HIP INJECTION FOR BONE SPUR, Past Anesthesia/Blood Transfusion Reactions: No Reported Reaction Past Psychological History: Anxiety, Depression Additional Psychological History / Comment(s): On tx since son's 1988 Smoking Status: Never smoker Past Alcohol Use History: None Reported Past Drug Use History: None Reported - Past Family History Brother(s) Family Medical History: Cancer Additional Family Medical History / Comment(s): Esophageal cancer. Sister(s) Family Medical History: Cancer Additional Family Medical History / Comment(s): Colon cancer. Father Family Medical History: Cancer Additional Family Medical History / Comment(s): Prostate cancer. Medications and Allergies Home Medications Medication Instructions Recorded Confirmed Type [place] Carbonate 300 mg PO QAM 04/15/18 01/24/24 History [place] Carbonate 600 mg PO HS 04/15/18 01/24/24 History Ergocalciferol [Vitamin D2 50,000 unit PO FR 06/09/19 01/24/24 History (DRISDOL)] Dicyclomine [Bentyl] 20 mg PO TID PRN 08/07/23 01/24/24 History Levothyroxine Sodium [Synthroid] 175 mcg PO DAILY 01/24/24 01/24/24 History Allergies Allergy/AdvReac Type Severity Reaction Status Date / Time aspirin Allergy Itching Verified 01/24/24 17:07 egg Allergy Unknown Verified 01/24/24 17:07 milk Allergy Unknown Verified 01/24/24 17:07 tree nut [Nut] Allergy Unknown Verified 01/24/24 17:07 alendronate sodium AdvReac Tooth Decay Verified 01/24/24 17:07 [From Fosamax] codeine AdvReac "Makes me Verified 01/24/24 17:07 feel off balance" Physical Exam Vitals: Vital Signs Temp Pulse Pulse Resp BP BP Pulse Ox 01/25/24 08:00 97.6 F 67 18 113/68 99 01/25/24 02:00 98.0 F 67 16 119/75 97 01/24/24 22:37 98.3 F 67 16 138/80 97 01/24/24 21:52 98.5 F 76 18 140/68 99 01/24/24 18:45 99 18 140/78 98 01/24/24 17:18 97.7 F 78 16 118/71 97 01/24/24 13:59 98.4 F 66 20 128/74 96 Intake and Output 01/24/24 01/25/24 01/25/24 22:59 06:59 14:59 Intake Total 590 Balance 590 Intake: Oral 590 Other: Voiding Method Toilet Toilet Bedside Commode # Voids 2 Weight 81.647 kg PHYSICAL EXAM: VITAL SIGNS: [As above] GENERAL: Alert and oriented x 2 ,sitting up in bed, no acute distress, slurred speech. HEENT: Conjunctivae normal. eyes normal. MMM. NECK: Supple, No JVD. No thyroid enlargement. No LNs CARDIOVASCULAR: S1, S2 regular. No murmur RESPIRATION: Unlabored, equal air entry, essentially clear with bilateral bases diminished. ABDOMEN: Soft, nontender . No guarding. no masses palpable. No ascites, No hepatosplenomegaly.Bowel sounds heard. EXTREMITIES: No edema, no calf tenderness, positive DP pulses. NERVOUS SYSTEM: Limited evaluation: Slurred speech, expressive aphasia ,strength and sensation grossly intact. Skin: Warm and dry, no rash Results CBC & Chem 7: 01/25/24 06:41 01/25/24 06:41 Labs: Abnormal Lab Results - Last 24 Hours (Table) 01/24/24 01/24/24 01/24/24 Range/Units 15:57 15:57 19:40 WBC 11.2 H (3.8-10.6) k/uL MPV (9.5-12.2) [place] Neutrophils # 9.5 H (1.3-7.7) k/uL Sodium 136 L (137-145) mmol/L Chloride (96-109) mmol/L Creatinine 1.49 H (0.52-1.04) mg/dL Est GFR (CKD-EPI) (>=60) BUN/Creatinine Ratio (12.00-20.00) Ratio POC Glucose (mg/dL) (70-110) mg/dL AST 37 H (14-36) U/L ALT 35 H (4-34) U/L Total Protein (6.2-8.2) g/dL Urine Ketones 1+ H (Negative) Ur Leukocyte Esterase Trace H (Negative) Urine Bacteria Rare H (None) /hpf 01/24/24 01/25/24 01/25/24 Range/Units 21:32 06:41 06:41 WBC 10.48 H (3.8-10.6) k/uL MPV 14.1 H (9.5-12.2) FL Neutrophils # 8.56 H (1.3-7.7) k/uL Sodium (137-145) mmol/L Chloride 111 H (96-109) mmol/L Creatinine (0.52-1.04) mg/dL Est GFR (CKD-EPI) 53 L (>=60) BUN/Creatinine Ratio 9.36 L (12.00-20.00) Ratio POC Glucose (mg/dL) 65 L (70-110) mg/dL AST (14-36) U/L ALT (4-34) U/L Total Protein 5.6 L (6.2-8.2) g/dL Urine Ketones (Negative) Ur Leukocyte Esterase (Negative) Urine Bacteria (None) /hpf Thrombosis Risk Factor Assmnt - Choose All That Apply Any of the Below Risk Factors Present?: No Other Risk Factors: Yes Each Risk Factor Represents 2 Points: Age 61-74 years Other congenital or acquired thrombophilia - If yes, enter type in comment: No Thrombosis Risk Factor Assessment Total Risk Factor Score: 2 Thrombosis Risk Factor Assessment Level: Low Risk Assessment and Plan Assessment: Altered mental status, metabolic encephalopathy with slurred speech, expressive aphasia, possible TIA. Neurology consult in place Dehydration Acute renal injury secondary to the above Hypothyroidism Gastroesophageal reflux disease Hyperlipidemia Anxiety Depression Plan: Continue on current medication resume ,monitoring and symptomatic treatment. Maintain IV fluid hydration. Close monitoring of renal function with repeat labs ordered for a.m. lithium level pending. psychiatry and neurology consults in place, recommendations pending. The impression and plan of care has been dictated as directed. : I performed a history and examination of this patient, discussed the same with the dictator. I agree with the dictator's note ,documented as a scribe. Any additional findings or plans will be noted.
[2024-01-25] MEDS: PANTOPRAZOLE 40 MG/10 ML VIAL IVP SCH (12:38)
[2024-01-25] MEDS: LEVOTHYROXINE 88 MCG TAB PO SCH (12:38)
[2024-01-25] MEDS: ERGOCALCIFEROL 1,250 MCG (50,000 IU) CAPSULE PO SCH (12:39)
--- NOTE | 2024-01-25 12:40 | P.CNNES ---
History of Present Illness Consult date: 01/25/24 Requesting physician: Maximo Brown Reason for Consult: ams History of Present Illness: This is a 73 year-old woman who presents to the emergency department for confusion and weakness. History is obtained from medical records. Patients states she is here because of speech difficulty and tremor but stated going on for one year. Per medical records it seems she has not been feeling well for past couple days and it seems having difficulty getting her words out. ER reports tpatient found by neighbors wandering and was confused. She denies any headache, focal weakness, nausea, vomiting, visual disturbance. She denies history of stroke, seizures. Some of the work-up during this hospital visit consisted of: Patient is afebrile. I reviewed the labs work-up Serum glucose is 77 but had one episode of POC glucose 65. Subtle elevated AST and ALT UA is negative for UTI. UDS is not detected and serum alcohol is <10. CT head is negative for acute intracranial process. I personally reviewed CT but with limitation of me reviewing imaging because of computer glitch, I agree with report. Review of Systems Limited. Past Medical History Past Medical History: Osteoarthritis (OA), Thyroid Disorder Additional Past Medical History / Comment(s): Recent issues with gas and diarrhea.Constipation. Hx colon polyps. RT HIP SPURS History of Any Multi-Drug Resistant Organisms: None Reported Past Surgical History: Appendectomy, Hysterectomy Additional Past Surgical History / Comment(s): Tubal . Colonoscopy. HIP INJECTION FOR BONE SPUR, Past Anesthesia/Blood Transfusion Reactions: No Reported Reaction Past Psychological History: Anxiety, Depression Additional Psychological History / Comment(s): On tx since son's 1988 Smoking Status: Never smoker Past Alcohol Use History: None Reported Past Drug Use History: None Reported - Past Family History Brother(s) Family Medical History: Cancer Additional Family Medical History / Comment(s): Esophageal cancer. Sister(s) Family Medical History: Cancer Additional Family Medical History / Comment(s): Colon cancer. Father Family Medical History: Cancer Additional Family Medical History / Comment(s): Prostate cancer. Medications and Allergies Home Medications Medication Instructions Recorded Confirmed Type Dell Carbonate 300 mg PO QAM 04/15/18 01/24/24 History Dell Carbonate 600 mg PO HS 04/15/18 01/24/24 History Ergocalciferol [Vitamin D2 50,000 unit PO FR 06/09/19 01/24/24 History (DRISDOL)] Dicyclomine [Bentyl] 20 mg PO TID PRN 08/07/23 01/24/24 History Levothyroxine Sodium [Synthroid] 175 mcg PO DAILY 01/24/24 01/24/24 History Allergies Allergy/AdvReac Type Severity Reaction Status Date / Time aspirin Allergy Itching Verified 01/24/24 17:07 egg Allergy Unknown Verified 01/24/24 17:07 milk Allergy Unknown Verified 01/24/24 17:07 tree nut [Nut] Allergy Unknown Verified 01/24/24 17:07 alendronate sodium AdvReac Tooth Decay Verified 01/24/24 17:07 [From Fosamax] codeine AdvReac "Makes me Verified 01/24/24 17:07 feel off balance" Physical Examination - Vital Signs Vital Signs: Vital Signs Temp Pulse Pulse Resp BP BP Pulse Ox 01/25/24 08:00 97.6 F 67 18 113/68 99 01/25/24 02:00 98.0 F 67 16 119/75 97 01/24/24 22:37 98.3 F 67 16 138/80 97 01/24/24 21:52 98.5 F 76 18 140/68 99 01/24/24 18:45 99 18 140/78 98 01/24/24 17:18 97.7 F 78 16 118/71 97 01/24/24 13:59 98.4 F 66 20 128/74 96 Intake and Output 01/24/24 01/25/24 01/25/24 22:59 06:59 14:59 Intake Total 590 Balance 590 Intake: Oral 590 Other: Voiding Method Toilet Toilet Bedside Commode # Voids 2 Weight 81.647 kg General: Lying in bed and is not in acute distress. HENT: Supple neck. Neuro: Somewhat limited. Patient is drowsy but is awakeable to voice. Is oriented to self and stated she is in hospital. She is following few simple commands. Appears expressive aphasia. Pupils are round, equal and reactive to lift. Visual vega are full to confrontation. EOM intact and no nystagmus. Has left nasolabial flattening. No dysarthria. Motor: Strength is 5/5 throughout. Has tremors mostly with movement right >left upper extremity. Cerebellar: No dysmetria or ataxia. Sensation: Normal to touch throughout. Reflex: 2+ throughout. Plantars are mute bilaterally. Results - Laboratory Findings CBC and BMP: 01/25/24 06:41 01/25/24 06:41 Abnormal Lab Findings: Abnormal Labs 01/24/24 01/24/24 01/24/24 15:57 15:57 19:40 WBC 11.2 H MPV Neutrophils # 9.5 H Sodium 136 L Chloride Creatinine 1.49 H Est GFR (CKD-EPI) BUN/Creatinine Ratio POC Glucose (mg/dL) AST 37 H ALT 35 H Total Protein Urine Ketones 1+ H Ur Leukocyte Esterase Trace H Urine Bacteria Rare H 01/24/24 01/25/24 01/25/24 21:32 06:41 06:41 WBC 10.48 H MPV 14.1 H Neutrophils # 8.56 H Sodium Chloride 111 H Creatinine Est GFR (CKD-EPI) 53 L BUN/Creatinine Ratio 9.36 L POC Glucose (mg/dL) 65 L AST ALT Total Protein 5.6 L Urine Ketones Ur Leukocyte Esterase Urine Bacteria Assessment and Plan Assessment: This is a 73 y/o woman who presents with confusion and weakness for past couples days that is reported. On examination she has expressive aphasia and subtle left nasolabial flatterning. She also has tremor of uppers with activity. Expressive aphasia, left facial droop and confusion: Rule out stroke. Also rule out seizure vs drug toxcity (Lithim). CT head is unremarkable for acute process. History of hypothyroidism History of Depression on Lithim Plan: I ordered TSH, Vitamin B12, routine EEG, MRI Brain. Ordered carotid duplex. If patient does have stroke then pursue 2D echo and re commend starting her on antiplatelets such as ASA 81mg and lipitor 40mg qhs for secondary stroke prophylaxis. Primary ordered Dell level. I started the patient on Vimpat 100mg IV once then 50mg bid for concern for seizure. I did not start Keppra since has history of Depression and Keppra can cause behavioral/mood changes. If patient continues to be confused and initial EEG is negative for seizure then recommend repeating EEG. Continue neuro checks Psychiatry is consulted. She was started on Ceftriaxone by ED team but patient does not have UTI and I do not think it is needed and will defer management to primary team. Consulted MANAGER OF ORGANIZATIONAL DEVELOPMENT. Will defer the rest of medical management to primary team and other specialist. The plan is discussed with her nurse. Dr. Olsen will resume neurology service tomorrow A.M. Time with Patient: Greater than 30
--- NOTE | 2024-01-25 13:46 | US ---
EXAMINATION TYPE: US carotid duplex BILAT DATE OF EXAM: 01/25/2024 COMPARISON: NONE CLINICAL INDICATION: Female, 73 years old with history of stroke; stroke TECHNIQUE: Carotid duplex ultrasound examination. Indirect Doppler criteria was utilized. FINDINGS: EXAM MEASUREMENTS: RIGHT: Peak Systolic Velocity (PSV) cm/sec ----- Right CCA: 74.8 ----- Right ICA: 114 ----- Right ECA: 98.6 ICA/CCA ratio: 1.5 RIGHT: End Diastole cm/sec ----- Right CCA: 16.6 ----- Right ICA: 25.5 ----- Right ECA: 10.7 LEFT: Peak Systolic Velocity (PSV) cm/sec ----- Left CCA: 83.2 ----- Left ICA: 73.6 ----- Left ECA: 76.6 ICA/CCA ratio: 0.9 LEFT: End Diastole cm/sec ----- Left CCA: 20.2 ----- Left ICA: 23.2 ----- Left ECA: 10.1 VERTEBRALS (direction of flow): Right Vertebral: Antegrade Left Vertebral: Antegrade Rhythm: Normal SATELLITE COMMUNICATIONS OPERATOR NOTES: minimal plaque bilat bulbs, no elevated velocities, stenosis. There is however a possible hesitant bi-systolic waveform at the right vertebral artery IMPRESSION: Less than 50% stenosis of the bilateral carotid bifurcations. Criteria for Assigning % of Stenosis / Diameter reduction (Estimation based on the indirect measurements of the internal carotid artery velocities (ICA PSV). 1. Normal (no stenosis)=ICA PSV < 125 cm/s: ratio < 2.0: ICA EDV<40 cm/s. 2. Less than 50% stenosis=ICA PSV < 125 cm/s: ratio < 2.0: ICA EDV<40 cm/s. 3. 50 to 69% stenosis=ICA PSV of 125 to 230 cm/s: ration 2.0 ? 4.0: ICA EDV 40-100 cm/s. 4. Greater than 70% stenosis to near occlusion= ICA PSV > 230 cm/s: ratio > 4.0: ICA EDV > 100 cm/s. 5. Near occlusion= ICA PSV velocities may be low or undetectable: variable ratio and ICA EDV. 6. Total occlusion=unable to detect flow.
--- NOTE | 2024-01-25 17:18 | MR ---
EXAMINATION TYPE: MR brain wo con DATE OF EXAM: 01/25/2024 4:55 PM CLINICAL INDICATION: Female, 73 years old with history of AMS unknown etiology, Altered mental status . COMPARISON: None TECHNIQUE: Multi planar, multi sequence imaging was performed through the brain including: T1, T2, In version recovery, Diffusion weighted imaging, and gradient echo imaging. No gadolinium was given. FINDINGS: The lane-white junctions, ventricular system, basal cisterns appear unremarkable. Scattered foci of high T2 signal intensity are seen within the periventricular white matter. Midline structures show n o abnormality. Diffusion-weighted imaging shows no evidence of restricted diffusion. The susceptibili ty weighted images do not reveal any evidence for micro-hemorrhage. The bone marrow signal is within normal limits. Paranasal sinuses and mastoid air cells: No significant paranasal sinus disease. Visualized orbits: Orbital contents are intact. IMPRESSION: 1. Motion limited exam, No evidence of intracranial mass or acute/subacute infarct. 2. Nonspecific white matter changes, likely secondary to small vessel ischemic disease.
[2024-01-25] MEDS: diphenhydrAMINE 50 MG CAP PO ONE (17:42)
[2024-01-25] MEDS: Lacosamide IV (ages 17+ yrs) 200 MG/20 ML ML IVP STA (17:42)
[2024-01-25] MEDS: Lacosamide IV (ages 17+ yrs) 200 MG/20 ML ML IVP SCH (21:01)
--- NOTE | 2024-01-25 21:06 | EEG ---
ELECTROENCEPHALOGRAM REPORT CLINICAL HISTORY: This is a 73-year-old woman with altered mental status. The video EEG is obtained to evaluate for seizure epileptiform activity. RELEVANT MEDICATION: [place]. EEG TYPE: This is a routine 21-channel EEG with video using the 10/20 electrode placement system. DESCRIPTION: Wakefulness is only obtained. During awake state, the background consists of 6- 7 hertz theta activity, and at times, it consists of 2-3 hertz of nonrhythmic polymorphic delta activity. There was no physiological stage 2 sleep noticed. There is no focal slowing. There is moderate amount of diffuse myogenic artifact. Interictal or ictal is there is no clear epileptiform discharge or seizure on the EEG. But, there appears suspicious sharp activity over the left temporal more than central region. ACTIVATION PROCEDURE: Photic stimulation did not evoke a posterior driving response. There is no abnormality during the photic stimulation. Hyperventilation is not performed. CLINICAL INTERPRETATION: This is an abnormal routine EEG. The background slowing is suggestive of moderate encephalopathy. There appears to be questionable sharp activity over the left temporal more than central, that can possibly increase risk for focal irritability. But, no clear discharges and no seizure noted during the study. Clinical correlation is recommended. MMODL / IJN: [id number] / [place]
[2024-01-26 04:43] LABS: T4, Free (Free Thyroxine) 1.33 ng/dL (0.80-1.80)
[2024-01-26 05:22] LABS: Vitamin B12 <150.0 pg/mL (200.0-944.0)
[2024-01-26 09:51] LABS: Basophils # (A) 0.05 X 10*3/uL (0.00-0.10); Basophils % (A) 0.6 %; Eosinophils # (A) 0.16 X 10*3/uL (0.04-0.35); Eosinophils % (A) 1.8 %; HCT 41.3 % (37.2-46.3); HGB 13.2 g/dL (12.0-15.0); Lymphocytes # (A) 1.12 X 10*3/uL (0.90-5.00); Lymphocytes % (A) 12.5 %; MCH 31.1 pg (27.0-32.0); MCV 97.4 FL (80.0-97.0); Mean Platelet Volume 13.8 FL (9.5-12.2); Monocytes % (A) 5.6 %; NRBC Per 100 WBC 0 X 10*3/uL (0.00-0.01); Neutrophils # (A) 7.12 X 10*3/uL (1.80-7.70); Neutrophils % (A) 79.2 %; Platelet Count 137 X 10*3/uL (140-440); RBC 4.24 X 10*6/uL (4.10-5.20); RDW 13.3 % (11.5-14.5); WBC 8.98 X 10*3/uL (4.50-10.00)
[2024-01-26 10:03] LABS: Blood Urea Nitrogen 6.8 mg/dL (9.0-27.0); Calcium 9.4 mg/dL (8.7-10.3); Carbon Dioxide 19.7 mmol/L (21.6-31.8); Chloride 119 mmol/L (96-109); Glucose 101 mg/dL (70-110); Potassium 3.6 mmol/L (3.5-5.5); Sodium 149 mmol/L (135-145)
[2024-01-26] MEDS: CYANOCOBALAMIN 1,000 MCG/ML 1 ML VIAL IM SCH (16:47)
[2024-01-26] MEDS: HEPARIN SODIUM,PORCINE 5,000 UNIT/ML 1 ML VIAL SQ SCH (16:47)
[2024-01-26] MEDS: DEXTROSE 5%-0.45% NACL 1,000 ML IV SCH (16:47)
--- NOTE | 2024-01-27 10:40 | P.PN ---
Subjective Progress Note Date: 01/26/24 Patient was initially seen by Dr. Walker Bianchi. Please refer to his note for details. Patient was seen for follow-up. Patient's daughter was present. She mentions that patient has developed acute mental status change in the last 1-1/2 to 2 weeks, and has been slowly declining. Patient was brought to the hospital by police as she was noted to be wandering and confused. Patient has history of some baseline mild tremors related to lithium, but now has developed body jerking, which is new. She appears to have some myoclonic jerks. Patient used to talk normally, but now has limitation in her verbal capacity since this week. Patient's daughter, who lives in [place], came over, and noticed that her apartment was in complete disarray, the medications were found in the pocket of her clothes. At present she is unable to tell name of her brothers and sisters. Patient at present denies headache. No fever or chills. There is no previous history of seizures. Patient has no previous history of dementia. Some of the work-up during this hospital visit consisted of: Patient is afebrile. I reviewed the labs work-up Serum glucose is 77 but had one episode of POC glucose 65. Subtle elevated AST and ALT UA is negative for UTI. UDS is not detected and serum alcohol is <10. CT head is negative for acute intracranial process. I personally reviewed CT but with limitation of me reviewing imaging because of computer glitch, I agree with report. Objective - Vital Signs Vital signs: Vital Signs Temp 98.3 F 01/26/24 08:00 Pulse 55 L 01/26/24 08:00 Resp 17 01/26/24 08:00 BP 150/77 01/26/24 08:00 Pulse Ox 98 01/26/24 08:00 FiO2 Intake & Output 01/25/24 01/26/24 01/26/24 18:59 06:59 18:59 Intake Total 1555 Balance 1555 Intake: Intake, IV Titration 975 Amount Sodium Chloride 0.9% 1, 975 000 ml @ 75 mls/hr IV . [id number] CASEY Rx#:[id number] Oral 580 Other: Voiding Method Toilet Toilet # Voids 1 2 - Exam On examination patient is alert and awake, sitting in the recliner. Patient's daughter is by her side. Patient denies headache. She is very confused, states it is April and the year is "June". She then states random numbers like May. Patient knows that she is in [facility] in [facility]. Regarding president, patient states "hope nobody". She could not tell the name of the president although was able to say Chandan with "B'. Patient able to name objects like knuckles, collar, but for earlobe patient states "ear bone". Patient appears somewhat delirious, has some myoclonic jerks slight noted. Patient can repeat very well. No pronator drift. Rest of examination is nonfocal. - Labs CBC & Chem 7: 01/26/24 05:37 01/26/24 05:37 Labs: Abnormal Lab Results - Last 24 Hours (Table) 01/25/24 01/26/24 01/26/24 Range/Units 15:10 05:37 05:37 MCV 97.4 H (80.0-97.0) FL Plt Count 137 L (140-440) X 10*3/uL MPV 13.8 H (9.5-12.2) FL Sodium 149 H (135-145) mmol/L Chloride 119 H (96-109) mmol/L Carbon Dioxide 19.7 L (21.6-31.8) mmol/L BUN 6.8 L (9.0-27.0) mg/dL Est GFR (CKD-EPI) 59 L (>=60) BUN/Creatinine Ratio 6.80 L (12.00-20.00) Ratio Vitamin B12 <150.0 L (200.0-944.0) pg/mL TSH 0.061 L (0.465-4.680) mIU/L Assessment and Plan Assessment: * 73-year-old female, came with altered mental status, declining cognitive functions, myoclonic jerking for last 1-1/2 to 2 weeks, progressively getting worse. Patient also has some speech difficulty and difficulty finding words. Exact cause remains uncertain. Workup so far is negative. CT head is unremarkable for acute process. Uncertain if related to mild encephalopathy from lithium toxicity, B12 deficiency or some other process. * History of hypothyroidism * History of Depression on Lithim * Vitamin B12 deficiency Plan: TSH 0.061, with free T4 of 1.33. Vitamin B12 <150. [place] level 1.8, which is slightly elevated. [place] currently on hold. Patient has severe vitamin B12 deficiency. We will start vitamin B12 1000 mcg IM subcutaneously daily. EEG was abnormal, due to background slowing, suggestive of moderate encephalopathy. There appears to be questionable sharp activity over the left temporal more than central, that can possibly increase risk for focal delay. But no clear discharges and no seizures noted during the study. Clinical correlation is recommended. Dr. Monroy has given patient Vimpat 100 mg x 1 dose followed by 50 mg twice daily. Carotid Doppler revealed < 50% stenosis of bilateral carotid bifurcation. Antegrade flow in both vertebral arteries. MRI brain without contrast revealed no evidence of intracranial mass or acute/subacute infarct. Nonspecific white matter changes, likely secondary to small vessel ischemic disease. I personally reviewed MRI, agree with the findings. Patient may need repeat EEG. Continue neuro checks Psychiatry is consulted. No evidence of UTI, ceftriaxone discontinued. Consulted ATOMIC FUEL ASSEMBLER. Will defer the rest of medical management to primary team and other specialist. We will observe for 24 hours. If no improvement, we will consider lumbar puncture. At present patient has no headache, no nuchal rigidity, no fever or elevated white cells. Discussed with patient's daughter, who agreed for proceeding with lumbar puncture if mentation does not improve.
[2024-01-27 10:44] LABS: Basophils # (A) 0.06 X 10*3/uL (0.00-0.10); Basophils % (A) 0.8 %; Eosinophils # (A) 0.19 X 10*3/uL (0.04-0.35); Eosinophils % (A) 2.4 %; HCT 40.5 % (37.2-46.3); HGB 13.1 g/dL (12.0-15.0); Lymphocytes # (A) 1.58 X 10*3/uL (0.90-5.00); Lymphocytes % (A) 20.2 %; MCHC 32.3 g/dL (32.0-37.0); MCV 95.7 FL (80.0-97.0); Mean Platelet Volume 14.4 FL (9.5-12.2); Monocytes # (A) 0.41 X 10*3/uL (0.20-1.00); Monocytes % (A) 5.2 %; NRBC Per 100 WBC 0 X 10*3/uL (0.00-0.01); Neutrophils # (A) 5.58 X 10*3/uL (1.80-7.70); Neutrophils % (A) 71.1 %; Platelet Count 144 X 10*3/uL (140-440); RBC 4.23 X 10*6/uL (4.10-5.20); RDW 13.4 % (11.5-14.5); WBC 7.84 X 10*3/uL (4.50-10.00)
[2024-01-27] MEDS ORDERED: LIDOCAINE 1% INJ 10MG/ML (20 ML MDV) SQ ONE (10:51)
[2024-01-27 11:15] LABS: BUN/Creat Ratio 3.55 Ratio (12.00-20.00); Blood Urea Nitrogen 3.9 mg/dL (9.0-27.0); Calcium 9.6 mg/dL (8.7-10.3); Carbon Dioxide 21.1 mmol/L (21.6-31.8); Chloride 117 mmol/L (96-109); Glucose 115 mg/dL (70-110); Potassium 3.1 mmol/L (3.5-5.5); Sodium 148 mmol/L (135-145)
[2024-01-27] MEDS: POTASSIUM CHLORIDE ER 20 MEQ TAB.ER PO SCH (14:13)
[2024-01-27] MEDS: POTASSIUM CHLORIDE ER 20 MEQ TAB.ER PO STA (14:14)
[2024-01-27] MEDS: DEXTROSE 5% IN WATER 1,000 ML IV ONE (14:14)
--- NOTE | 2024-01-27 14:14 | P.PN ---
Subjective Progress Note Date: 01/26/24 This is a 73-year-old female with past medical history significant for hypothyroidism, osteoarthritis anxiety, depression, gastroesophageal reflux disease brought into the ER with altered mental status, confusion, weakness. Patient reports she had not been feeling well for the last couple of days, denied confusion reports she knew what she wanted to say but was unable to get the words out appropriately. ER reports patient was found by neighbors as she was wandering and appeared confused-at her normal baseline. Imaging currently unavailable. Vital signs stable. Denies chest pain, palpitations or shortness of breath. Afebrile, WBC 11.2. Hemoglobin, platelets, INR within normal limits. Sodium 136, potassium 3.5, bicarb 24, BUN 14, creatinine 1.49 magnesium 2.2, mildly elevated AST, ALT troponins negative x 1, UA reporting rare bacteria, toxicology screen reporting serum alcohol less than 10. Telemetry bedside monitor sinus rhythm. EEG was abnormal, due to background slowing, suggestive of moderate encephalopathy. There appears to be questionable sharp activity over the left temporal more than central, that can possibly increase risk for focal delay. But no clear discharges and no seizures noted during the study. Clinical corre lation is recommended. Dr. Monroy has given patient Vimpat 100 mg x 1 dose followed by 50 mg twice daily. Carotid Doppler revealed < 50% stenosis of bilateral carotid bifurcation. Antegrade flow in both vertebral arteries. MRI brain without contrast revealed no evidence of intracranial mass or acute/subacute infarct. Nonspecific white matter changes, likely secondary to small vessel ischemic disease. I personally reviewed MRI, agree with the findings. 01/26/2024 Patient is lying in the bed. Awake and alert. Still having confusion and also difficulty in speech. No complaints of chest pain or shortness of breath. Patient was able to recognize her family. No fever no chills. Urinalysis is negative for infection. Antibiotics have been discontinued. Patient had MRI of the brain without contrast showed no evidence of intracranial mass, acute/subacute infarct. Nonspecific white matter changes. Patient was also found to have vitamin B12 deficiency with less than 150 and was started on supplementation. Other laboratory data showed sodium level 149. IV fluid changed to D5 half- normal saline and continue to monitor sodium level. Bicarb is 19.7 BUN 6.8 and creatinine 1.0 and blood sugar 101 B12 less than 50 TSH 0.061 and free T4 level is within normal limits at 1.33 WBC 8.9 hemoglobin 13.2 and platelets 137. Current medications reviewed. Objective - Vital Signs Vital signs: Vital Signs Temp 98.5 F 01/26/24 13:41 Pulse 63 01/26/24 13:41 Resp 16 01/26/24 13:41 BP 131/85 01/26/24 13:41 Pulse Ox 98 01/26/24 13:41 FiO2 Intake & Output 01/25/24 01/26/24 01/26/24 18:59 06:59 18:59 Intake Total 1555 Balance 1555 Intake: Intake, IV Titration 975 Amount Sodium Chloride 0.9% 1, 975 000 ml @ 75 mls/hr IV . [id number] CASEY Rx#:[id number] Oral 580 Other: Voiding Method Toilet Toilet # Voids 1 2 - Exam PHYSICAL EXAMINATION: Patient is lying in the bed comfortably, no acute distress, awake alert but still confused and difficulty in speech.. HEENT: Normocephalic. Neck is supple. Pupils reactive. Nostrils clear. Oral c avity is moist. Neck reveals no JVD, carotid bruits, or thyromegaly. CHEST EXAMINATION: Trachea is central. Symmetrical expansion. Lung vega clear to auscultation and percussion. CARDIAC: Normal S1, S2 with no gallops. No murmurs ABDOMEN: Soft. Bowel sounds normal. No organomegaly. No abdominal bruits. Extremities: reveal no edema. No clubbing or cyanosis Neurologically awake, alert, oriented x 1-2. Able to move all extremities. No gross focal deficits noted Skin: No rash or skin lesions. Psychiatric: Coperative. Could not be assessed completely. Musculoskeletal: No joint swelling or deformity. Normal range of motion. - Labs CBC & Chem 7: 01/27/24 04:19 01/27/24 04:19 Labs: Abnormal Lab Results - Last 24 Hours (Table) 01/25/24 01/26/24 01/26/24 Range/Units 15:10 05:37 05:37 MCV 97.4 H (80.0-97.0) FL Plt Count 137 L (140-440) X 10*3/uL MPV 13.8 H (9.5-12.2) FL Sodium 149 H (135-145) mmol/L Chloride 119 H (96-109) mmol/L Carbon Dioxide 19.7 L (21.6-31.8) mmol/L BUN 6.8 L (9.0-27.0) mg/dL Est GFR (CKD-EPI) 59 L (>=60) BUN/Creatinine Ratio 6.80 L (12.00-20.00) Ratio Vitamin B12 <150.0 L (200.0-944.0) pg/mL TSH 0.061 L (0.465-4.680) mIU/L Assessment and Plan Assessment: Altered mental status, metabolic encephalopathy with slurred speech, expressive aphasia. Possible metabolic encephalopathy and mild delirium toxicity. Hypernatremia sodium level 149 Acute kidney injury secondary to the above. Improved Hypothyroidism Gastroesophageal reflux disease Hyperlipidemia Anxiety Depression. Patient is on lithium for a long time. DVT prophylaxis with heparin subcu Vitamin B-12 deficiency Plan: Patient will be continued on IV hydration with D5 half-normal saline and a ntibiotics have been discontinued. Encourage oral intake. [place] is on hold. Patient will be continued on cyanocobalamin. Monitor sodium level. Neurology is on board. Discussed with her family at bedside in detail. Time with Patient: Greater than 30
--- NOTE | 2024-01-27 18:15 | P.CN ---
Psychiatric Consult - . Consult date: 01/27/24 Consult:: IDENTIFYING DATA: This patient is a 73 year old woman. REASON FOR REFERRAL: Psychiatry was consulted for altered mental status and history of depression. HISTORY OF PRESENT ILLNESS: Jenni Muñoz is a 73 year old woman with a history of bipolar disorder, stabilized for over 20 years on lithium, who presented to the ER at the urging of her daughter due to concern for altered mental status. The history was obtained from Ms. Muñoz's daughter, Janny, who was present at the bedside. Janny shared that her mother has lived independently for many years and at baseline fully manages her ADLs and IADLs. The patient seemed to start to experience some decline or change in her mental status approximately 2 weeks ago when her daughter who lives out of state was unable to reach her for about 4 days. In the past when this is occurred her daughter and listed support of patient's sister and niece to check on patient as they live in this area. When they went by they noted that the patient's cell phone was on however it was an airplane mode and that she was unable to receive calls. The patient's daughter explained that the patient is having enough with technology to be able to make calls and sent text messages so it was unusual for her not to be communicating by phone. Lately a few more days went by after this visit and the patient was again unreachable. Her daughter and listed family support to again go check on her and at that time the patient would not allow her relatives into her home. When the patient's niece did return it was clear that the patient had not been tending to her personal care nor the care of her residence, and she was subsequently brought to the emergency department. Ms. Muñoz's daughter explained that many of her medicine bottles were scattered in various places around Ms. Muñoz's home. All Ms. Muñoz had been fully independent in managing her medications things were in disarray. Her daughter explained that Ms. Muñoz has not had a manic episode nor significant depressive episode in at least 2 decades and has been stable on lithium for that period of time. The history Ms. Muñoz was able to provide was quite limited she did deny experiencing suicidal ideation intent or plan. She also denied homicidal ideation, intent, or plan. She did share her concern that a man had been smoking cigarettes near her window and the fumes were bothersome to her. She had also shared with her daughter that a man had been pacing the halls last evening and that this was a concern to her however her daughter did not see any man outside the room. Ms. Muñoz denied experiencing auditory hallucinations. PAST PSYCHIATRIC HISTORY: Patient has a history of bipolar disorder and experienced several hospitalizations over 20 years ago. However she has been stable for many years on lithium and receives outpatient care at the [facility]. Review of medical records her current dose of lithium is 300 mg in the morning and 600 mg at night. There is no history of suicide attempts that patient's daughter is aware of. PAST MEDICAL HISTORY: Hypothyroidism, IBS, osteoarthritis (per medical record) ALLERGIES: as per EMR. CHEMICAL DEPENDENCY HISTORY: No known use of substances per patient's daughter. FAMILY PSYCHIATRIC/SUBSTANCE USE HISTORY: Patient's brother by suicide. SOCIAL HISTORY: Patient [facility] and prior to this admission had been fully independent in regards to her ADLs and IADLs. She manage her own finances and was in regular communication at least every other day with her daughter, Janny, who resides in [place]. Patient was very active and participated in her community by maintaining the garden and supporting her neighbors. She does not have any firearms at home. MENTAL STATUS EXAM: General Appearance: Patient appears to be stated age and is pleasant and cooperative. Awareness is waxing and waning. She appears drowsy at times but easily arouses to her name being called. Patient appears to have fair hygiene and grooming wearing hospital gown with fair eye contact. Behavior: Patient is calmly lying in bed without any agitated behavior. Speech: Patient's speech is fluent and nonpressured though articulation is poor at times. Mood/Affect: Patient reports their mood is "good", affect is constricted. Suicidality/Homicidality: Patient denies having any suicidal or homicidal ideation intent or plan. Perceptions: Patient denies any auditory hallucinations but reports seeing someone smoking outside her window. Her room is located on the fifth floor. Though content/process: There is concern for delusional thought content and some paranoia. Thought process is disorganized and paucity of thought is present. Memory and concentration: Oriented to person and place. Not oriented to time. Answers "march" when asked about the month and again states "march" when asked about the year. Inability to concentrate on performing a task. When asked to tap her nose to property underwriter's finger this instruction had to be repeated several times for her to complete the task. She does have intact remote memory; able to accurately recall her date and place. Judgment and insight: Poor IMPRESSIONS: Jenni Muñoz is a 73 year old woman with a history of bipolar disorder, stable for many years on [place] 900 mg daily, who presented to the emergency department with altered mental status. Upon reviewing her records it appears that her lithium level was approximately 1.8 the day of admission which exceeds the therapeutic range for this medication. It's unclear how long her level may have been elevated. It is possible the peak serum concentration was actually higher than this but was not detected because she had not yet presented for care. In light of her current renal function and lack of availability of historical data, it's possible that renal clearance of lithium decreased which resulted in an accumulation and resulting supratherapeutic level. [place] toxicity can in itself precipitate altered mental status. Additionally, if Ms. Muñoz experienced dehydration secondary to poor self-care she was likely not clearing lithium as effectively. Recommend repeating a lithium level. Given her long history of mood stability would like to avoid exacerbation of her underlying bipolar disorder while delicately balancing management of delirium. - Multifactoral delirium, with lithium toxicity as a potential contributing factor (in addition to hypernatremia, B12 deficiency) - Bipolar disorder PLAN: -Agree with holding lithium in the interim. -Recommend repeating a lithium level with tomorrow's labs to promote ongoing monitoring and providing guidance on restarting a mood stabilizer -Delirium precautions recommended with patient including - avoiding use of narcotics and SUPERINTENDENT TRANSPORTATION sedatives, limit anticholinergic medications when possible, frequent re-orientation, minimize use of restraints, open window shades during the day and close them at night -Communicated plan to patient's nurse -Will follow-up tomorrow -Please contact with any questions.
[2024-01-27] MEDS: hydrALAZINE HCL 20 MG/ML 1 ML VIAL IVP PRN (22:35)
[2024-01-28] MEDS: ONDANSETRON 4 MG/2 ML VIAL IVP PRN (01:14)
--- NOTE | 2024-01-28 12:05 | P.PN ---
Subjective Progress Note Date: 01/27/24 01/27/2024: Patient was seen for a follow-up. Patient's daughter was also present. Patient's daughter believes that she may be slightly better, but not a whole lot. She is still very confused. Patient denies headache. No fever. Patient is having difficulty with speech, stuttering speech. Patient has not showed remarkable improvement with B12 replacement. 01/26/2024: Patient was initially seen by Dr. Walker Bianchi. Please refer to his note for details. Patient was seen for follow-up. Patient's daughter was present. She mentions that patient has developed acute mental status change in the last 1-1/2 to 2 weeks, and has been slowly declining. Patient was brought to the hospital by police as she was noted to be wandering and confused. Patient has history of some baseline mild tremors related to lithium, but now has developed body jerking, which is new. She appears to have some myoclonic jerks. Patient used to talk normally, but now has limitation in her verbal capacity since this week. Patient's daughter, who lives in [place], came over, and noticed that her apartment was in complete disarray, the medications were found in the pocket of her clothes. At present she is unable to tell name of her brothers and sisters. Patient at present denies headache. No fever or chills. There is no previous history of seizures. Patient has no previous history of dementia. Some of the work-up during this hospital visit consisted of: Patient is afebrile. I reviewed the labs work-up Serum glucose is 77 but had one episode of POC glucose 65. Subtle elevated AST and ALT UA is negative for UTI. UDS is not detected and serum alcohol is <10. CT head is negative for acute intracranial process. I personally reviewed CT but with limitation of me reviewing imaging because of computer glitch, I agree with report. Objective - Vital Signs Vital signs: Vital Signs Temp 98.3 F 01/28/24 07:29 Pulse 84 01/28/24 07:29 Resp 18 01/28/24 07:29 BP 148/79 01/28/24 07:29 Pulse Ox 98 01/28/24 07:29 FiO2 Intake & Output 01/27/24 01/28/24 01/28/24 18:59 06:59 18:59 Intake Total 1080 Balance 1080 Intake: Oral 1080 Other: Voiding Method Toilet # Voids 7 10 # Bowel Movements 0 - Exam On examination patient is alert and awake, sitting in the recliner. Patient's daughter is by her side. Patient denies headache. She is very confused, states it is April and the year is "March". She knows that she is in [facility]. Could not tell name of the current president. Patient continues to have some stuttering speech. Some word finding problem. Patient able to name objects like knuckles, collar, but for earlobe patient states "ear bone". Patient appears somewhat delirious, has some myoclonic jerks slight noted. Pat ient can repeat very well. No pronator drift. Rest of examination is nonfocal. - Labs CBC & Chem 7: 01/27/24 04:19 01/27/24 04:19 Assessment and Plan Assessment: * 73-year-old female, came with altered mental status, declining cognitive functions, myoclonic jerking for last 1-1/2 to 2 weeks, progressively getting worse. Patient also has some speech difficulty and difficulty finding words. Exact cause remains uncertain. Workup so far is negative. CT head is unremarkable for acute process. Uncertain if related to mild encephalopathy from lithium toxicity, B12 deficiency or some other process. * History of hypothyroidism * History of Depression on Lithim * Vitamin B12 deficiency Plan: Patient continues to have mental status change. Patient has not showed any improvement with B12 replacement. Patient daughter admits that patient has been bitten by mosquitoes lately. We will perform lumbar puncture to rule out West Nile virus. Lumbar puncture was considered, but patient has received heparin subcu this morning. Therefore we will hold heparin subcutaneously tonight and tomorrow morning, and will consider performing lumbar puncture in the morning. TSH 0.061, with free T4 of 1.33. Vitamin B12 <150. [place] level 1.8, which is slightly elevated. [place] currently on hold. Patient has severe vitamin B12 deficiency. We will start vitamin B12 1000 mcg IM subcutaneously daily. EEG was abnormal, due to background slowing, suggestive of moderate encephalopathy. There appears to be questionable sharp activity over the left temporal more than central, that can possibly increase risk for focal delay. But no clear discharges and no seizures noted during the study. Clinical correlation is recommended. Dr. Monroy has given patient Vimpat 100 mg x 1 dose followed by 50 mg twice daily. Carotid Doppler revealed < 50% stenosis of bilateral carotid bifurcation. Antegrade flow in both vertebral arteries. MRI brain without contrast revealed no evidence of intracranial mass or acute/subacute infarct. Nonspecific white matter changes, likely secondary to small vessel ischemic disease. I personally reviewed MRI, agree with the findings. Patient may need repeat EEG. Continue neuro checks Psychiatry is consulted. No evidence of UTI, ceftriaxone discontinued. Consulted V[employer]IDENT [employer]. Will defer the rest of medical management to primary team and other specialist.
[2024-01-28 12:41] LABS: BUN/Creat Ratio <3.50 Ratio (12.00-20.00); Blood Urea Nitrogen <3.5 mg/dL (9.0-27.0); Calcium 9.3 mg/dL (8.7-10.3); Carbon Dioxide 21.4 mmol/L (21.6-31.8); Chloride 114 mmol/L (96-109); Glucose 116 mg/dL (70-110); Potassium 3.7 mmol/L (3.5-5.5); Sodium 144 mmol/L (135-145)
[2024-01-28 12:56] LABS: Basophils # (A) 0.04 X 10*3/uL (0.00-0.10); Basophils % (A) 0.5 %; Eosinophils # (A) 0.12 X 10*3/uL (0.04-0.35); Eosinophils % (A) 1.5 %; HCT 41.4 % (37.2-46.3); Lymphocytes # (A) 1.33 X 10*3/uL (0.90-5.00); Lymphocytes % (A) 16.6 %; MCHC 31.4 g/dL (32.0-37.0); MCV 98.6 FL (80.0-97.0); Mean Platelet Volume 14.3 FL (9.5-12.2); Monocytes # (A) 0.53 X 10*3/uL (0.20-1.00); Monocytes % (A) 6.6 %; NRBC Per 100 WBC 0 X 10*3/uL (0.00-0.01); Neutrophils # (A) 5.95 X 10*3/uL (1.80-7.70); Neutrophils % (A) 74.5 %; Platelet Count 136 X 10*3/uL (140-440); RDW 13.9 % (11.5-14.5); WBC 7.99 X 10*3/uL (4.50-10.00)
--- NOTE | 2024-01-28 15:51 | P.CN ---
Psychiatric Consult - . Consult date: 01/28/24 Consult:: IDENTIFYING DATA: This patient is a 73 year old woman. REASON FOR REFERRAL: Psychiatry was consulted for history of bipolar I disorder, presenting with altered mental status INTERIM HISTORY: Ms. Muñoz did not have any acute events overnight. She was seen at the bedside today and was awake and more alert and shared that she is spoken to her niece over the phone. She explained that she was concerned about why she was here and still did not understand what happened to bring her to the hospital. We discussed the timeline of events that led up to her admission and concerned that she had been doing well for the last few weeks at home. She agreed that she has usually been an active member of her community taking care of things around her home and neighbors homes and we discussed that she had not been doing those things which raise concern for them. She reports her mood as good overall she said she is "trying to get home". She was oriented to person and place and was able to spell the word world forward though not backwards. She recalled correctly that her daughter lives in [facility]. And she does remember consistently taking both her lithium and her levothyroxine at home prior to admission. She denies suicidal or homicidal ideation, intent, or plan. She also denies experiencing auditory or visual hallucinations. See initial note from 01/27/24 for past history. MENTAL STATUS EXAM: General Appearance: Patient appears to be stated age and is pleasant and cooperative. Less drowsy than yesterday. More alert. Behavior: Patient is calmly lying in bed without any agitated behavior. Speech: Patient's speech is fluent and nonpressured though articulation is poor at times. Mood/Affect: Patient reports their mood is "good", affect is congruent. A bit more expressive. Suicidality/Homicidality: Patient denies having any suicidal or homicidal ideation intent or plan. Perceptions: Patient denies any auditory hallucinations but reports seeing someone smoking outside her window. Her room is located on the fifth floor. Though content/process: Thought process is more linear and goal-directed. No overt delusions or paranoia. Memory and concentration: Oriented to person and place. Not oriented to time. Answers "April 14..." when asked the date. Less distractable. Improved concentration. She does have intact remote memory; able to again accurately recall her date. Judgment and insight: Poor IMPRESSIONS: Jenni Muñoz is a 73 year old woman with a history of bipolar disorder, stable for many years on [place] 900 mg daily, who presented to the emergency department with altered mental status. Upon reviewing her records it appears that her lithium level was approximately 1.8 the day of admission which exceeds the therapeutic range for this medication. It's unclear how long her level may have been elevated. It is possible the peak serum concentration was actually higher than this but was not detected because she had not yet presented for care. In light of her current renal function and lack of availability of historical data, it's possible that renal clearance of lithium decreased which resulted in an accumulation and resulting supratherapeutic level. [place] can in itself precipitate altered mental status. Additionally, if Ms. Muñoz experienced dehydration secondary to poor self-care she was likely not clearing lithium as effectively. Repeat lithium level was 0.8 today, which is rapidly falling below therapeutic range. Want to delicately balance reassessment of her new dose requirements while avoiding exacerbating her underlying mood disorder. - Multifactoral delirium, with lithium toxicity as a potential contributing factor (in addition to hypernatremia, B12 deficiency) - Bipolar disorder PLAN: -Recommend restarting lithium at a lower dose (300 mg at bedtime) on 01/29/24 to prevent potentially destabilizing her mood disorder and gradually reassess/return her lithium level to a therapeutic range. Would recommend repeating a lithium level 12 hours after that dose to reassess her level. -Delirium precautions recommended with patient including - avoiding use of narcotics and HIM DIRECTOR sedatives, limit anticholinergic medications when possible, frequent re-orientation, minimize use of restraints, open window shades during the day and close them at night -Communicated plan to patient's nurse and updated patient's daughter "Janny" -Will follow peripherally. Please contact with any questions. 01/28/24 15:48 01/28/24 15:51
[2024-01-28] MEDS: LIDOCAINE 1% INJ 10MG/ML (20 ML MDV) SQ ONE (18:35)
[2024-01-28 19:22] LABS: Glucose,CSF 67 mg/dL (40-70); Total Protein,CSF 76 mg/dL (12-60)
[2024-01-28 19:24] LABS: Appearance,CSF Clear; CSF Tube Number 4; CSF Tube Volume 2.5; Nucleated Cells, CSF 0 u/L (0-5); Red Blood Cell,CSF 76 u/L (0-10)
[2024-01-28 19:29] LABS: Red Blood Cell, CSF Fresh 100 %
--- NOTE | 2024-01-29 00:48 | P.PN ---
Subjective Progress Note Date: 01/27/24 This is a 73-year-old female with past medical history significant for hypothyroidism, osteoarthritis anxiety, depression, gastroesophageal reflux disease brought into the ER with altered mental status, confusion, weakness. Patient reports she had not been feeling well for the last couple of days, denied confusion reports she knew what she wanted to say but was unable to get the words out appropriately. ER reports patient was found by neighbors as she was wandering and appeared confused-at her normal baseline. Imaging currently unavailable. Vital signs stable. Denies chest pain, palpitations or shortness of breath. Afebrile, WBC 11.2. Hemoglobin, platelets, INR within normal limits. Sodium 136, potassium 3.5, bicarb 24, BUN 14, creatinine 1.49 magnesium 2.2, mildly elevated AST, ALT troponins negative x 1, UA reporting rare bacteria, toxicology screen reporting serum alcohol less than 10. Telemetry bedside monitor sinus rhythm. EEG was abnormal, due to background slowing, suggestive of moderate encephalopathy. There appears to be questionable sharp activity over the left temporal more than central, that can possibly increase risk for focal delay. But no clear discharges and no seizures noted during the study. Clinical corre lation is recommended. Dr. Monroy has given patient Vimpat 100 mg x 1 dose followed by 50 mg twice daily. Carotid Doppler revealed < 50% stenosis of bilateral carotid bifurcation. Antegrade flow in both vertebral arteries. MRI brain without contrast revealed no evidence of intracranial mass or acute/subacute infarct. Nonspecific white matter changes, likely secondary to small vessel ischemic disease. I personally reviewed MRI, agree with the findings. 01/26/2024 Patient is lying in the bed. Awake and alert. Still having confusion and also difficulty in speech. No complaints of chest pain or shortness of breath. Patient was able to recognize her family. No fever no chills. Urinalysis is negative for infection. Antibiotics have been discontinued. Patient had MRI of the brain without contrast showed no evidence of intracranial mass, acute/subacute infarct. Nonspecific white matter changes. Patient was also found to have vitamin B12 deficiency with less than 150 and was started on supplementation. Other laboratory data showed sodium level 149. IV fluid changed to D5 half- normal saline and continue to monitor sodium level. Bicarb is 19.7 BUN 6.8 and creatinine 1.0 and blood sugar 101 B12 less than 50 TSH 0.061 and free T4 level is within normal limits at 1.33 WBC 8.9 hemoglobin 13.2 and platelets 137. 01/27/2024 Patient is currently sitting in the chair. Awake alert and seems to be more oriented to. Still confused but mentation is much improved. Started speech also improving. No complaints of chest pain or shortness of breath. Due to recent history of mosquito bites, neurology recommends LP to rule out [place] virus. Heparin subcu will be on hold. Otherwise patient will be continued on IV hydration and B12 vitamin supplementation. Lab data showed sodium improved to 148 chloride 117 bicarb is 21.1 BUN 3.9 and creatinine 1.1 and blood sugar 115 and potassium 3.1 which has been replaced. Current medications reviewed. Objective - Vital Signs Vital signs: Vital Signs Temp 98.4 F 01/27/24 13:02 Pulse 76 01/27/24 13:02 Resp 18 01/27/24 13:02 BP 148/86 01/27/24 13:02 Pulse Ox 97 01/27/24 13:02 FiO2 Intake & Output 01/26/24 01/27/24 01/27/24 18:59 06:59 18:59 Intake Total 1420 590 Balance 1420 590 Intake: Oral 1420 590 Other: Voiding Method Toilet # Voids 4 12 - Exam PHYSICAL EXAMINATION: Patient is lying in the bed comfortably, no acute distress, awake alert but still confused and difficulty in speech.. HEENT: Normocephalic. Neck is supple. Pupils reactive. Nostrils clear. Oral cavity is moist. Neck reveals no JVD, carotid bruits, or thyromegaly. CHEST EXAMINATION: Trachea is central. Symmetrical expansion. Lung vega clear to auscultation and percussion. CARDIAC: Normal S1, S2 with no gallops. No murmurs ABDOMEN: Soft. Bowel sounds normal. No organomegaly. No abdominal bruits. Extremities: reveal no edema. No clubbing or cyanosis Neurologically awake, alert, oriented x 1-2. Able to move all extremities. No gross focal deficits noted Skin: No rash or skin lesions. Psychiatric: Coperative. Could not be assessed completely. Musculoskeletal: No joint swelling or deformity. Normal range of motion. - Labs CBC & Chem 7: 01/28/24 03:22 01/28/24 03:22 Labs: Abnormal Lab Results - Last 24 Hours (Table) 01/27/24 01/27/24 Range/Units 04:19 04:19 MPV 14.4 H (9.5-12.2) FL Sodium 148 H (135-145) mmol/L Potassium 3.1 L (3.5-5.5) mmol/L Chloride 117 H (96-109) mmol/L Carbon Dioxide 21.1 L (21.6-31.8) mmol/L BUN 3.9 L (9.0-27.0) mg/dL Est GFR (CKD-EPI) 53 L (>=60) BUN/Creatinine Ratio 3.55 L (12.00-20.00) Ratio Glucose 115 H (70-110) mg/dL Assessment and Plan Assessment: Altered mental status, metabolic encephalopathy with slurred speech, expressive aphasia. Possible metabolic encephalopathy and mild delirium toxicity. Improving slowly. Hypernatremia sodium level 210306 Acute kidney injury secondary to the above. Improved Hypothyroidism Gastroesophageal reflux disease Hyperlipidemia Anxiety Depression. Patient is on lithium for a long time. DVT prophylaxis with heparin subcu Vitamin B-12 deficiency Plan: Patient will be continued on IV hydration D5 water. Antibiotics have been discontinued.. Encourage oral intake. [place] is on hold.Repeat [place] level was ordered. Neurology is on board Due to a recent history of mosquito bites and after mental status. Neurology recommends rule out potential virus. Patient will be continued on cyanocobalamin. Monitor sodium level. Neurology is on board. Discussed with her family at bedside in detail. Time with Patient: Greater than 30
--- NOTE | 2024-01-29 00:51 | P.PN ---
Subjective Progress Note Date: 01/28/24 This is a 73-year-old female with past medical history significant for hypothyroidism, osteoarthritis anxiety, depression, gastroesophageal reflux disease brought into the ER with altered mental status, confusion, weakness. Patient reports she had not been feeling well for the last couple of days, denied confusion reports she knew what she wanted to say but was unable to get the words out appropriately. ER reports patient was found by neighbors as she was wandering and appeared confused-at her normal baseline. Imaging currently unavailable. Vital signs stable. Denies chest pain, palpitations or shortness of breath. Afebrile, WBC 11.2. Hemoglobin, platelets, INR within normal limits. Sodium 136, potassium 3.5, bicarb 24, BUN 14, creatinine 1.49 magnesium 2.2, mildly elevated AST, ALT troponins negative x 1, UA reporting rare bacteria, toxicology screen reporting serum alcohol less than 10. Telemetry bedside monitor sinus rhythm. EEG was abnormal, due to background slowing, suggestive of moderate encephalopathy. There appears to be questionable sharp activity over the left temporal more than central, that can possibly increase risk for focal delay. But no clear discharges and no seizures noted during the study. Clinical corre lation is recommended. Dr. Monroy has given patient Vimpat 100 mg x 1 dose followed by 50 mg twice daily. Carotid Doppler revealed < 50% stenosis of bilateral carotid bifurcation. Antegrade flow in both vertebral arteries. MRI brain without contrast revealed no evidence of intracranial mass or acute/subacute infarct. Nonspecific white matter changes, likely secondary to small vessel ischemic disease. I personally reviewed MRI, agree with the findings. 01/26/2024 Patient is lying in the bed. Awake and alert. Still having confusion and also difficulty in speech. No complaints of chest pain or shortness of breath. Patient was able to recognize her family. No fever no chills. Urinalysis is negative for infection. Antibiotics have been discontinued. Patient had MRI of the brain without contrast showed no evidence of intracranial mass, acute/subacute infarct. Nonspecific white matter changes. Patient was also found to have vitamin B12 deficiency with less than 150 and was started on supplementation. Other laboratory data showed sodium level 149. IV fluid changed to D5 half- normal saline and continue to monitor sodium level. Bicarb is 19.7 BUN 6.8 and creatinine 1.0 and blood sugar 101 B12 less than 50 TSH 0.061 and free T4 level is within normal limits at 1.33 WBC 8.9 hemoglobin 13.2 and platelets 137. 01/27/2024 Patient is currently sitting in the chair. Awake alert and seems to be more oriented to. Still confused but mentation is much improved. Started speech also improving. No complaints of chest pain or shortness of breath. Due to recent history of mosquito bites, neurology recommends LP to rule out West Nile virus. Heparin subcu will be on hold. Otherwise patient will be continued on IV hydration and B12 vitamin supplementation. Lab data showed sodium improved to 148 chloride 117 bicarb is 21.1 BUN 3.9 and creatinine 1.1 and blood sugar 115 and potassium 3.1 which has been replaced. 01/28/2024 Patient is sitting on side of the bed. Awake alert and oriented x 3. Mentation is alert back to baseline as per family at bedside. Starting speech is also much improved. No cough or sputum production. No headache or dizziness or lightheadedness. Patient is scheduled for LP today. Follow-up fluid analysis and cultures. Otherwise patient is on IV hydration with D5 water. Sodium level improved to 144. Other laboratory showed sodium 144 potassium 3.7 chloride 114 bicarb is 21.4 BUN less than 3.5 and creatinine 1.0 and blood sugar 116. WBC 7.9 hemoglobin 13.0 and platelets 136. Repeat lithium level 0.8. Psychiatry recommends starting on lithium at lower dose. Patient was able to tolerate oral diet today. Current medications reviewed. Objective - Vital Signs Vital signs: Vital Signs Temp 98.6 F 01/28/24 20:00 Pulse 93 01/28/24 20:00 Resp 16 01/28/24 20:00 BP 166/97 01/28/24 20:00 Pulse Ox 99 01/28/24 20:00 FiO2 Intake & Output 01/28/24 01/28/24 01/29/24 06:59 18:59 06:59 Intake Total 1620 Balance 1620 Intake: Oral 1620 Other: Voiding Method Toilet # Voids 10 6 # Bowel Movements 0 - Exam PHYSICAL EXAMINATION: Patient is lying in the bed comfortably, no acute distress, awake alert and oriented.. HEENT: Normocephalic. Neck is supple. Pupils reactive. Nostrils clear. Oral cavity is moist. Neck reveals no JVD, carotid bruits, or thyromegaly. CHEST EXAMINATION: Trachea is central. Symmetrical expansion. Lung vega clear to auscultation and percussion. CARDIAC: Normal S1, S2 with no gallops. No murmurs ABDOMEN: Soft. Bowel sounds normal. No organomegaly. No abdominal bruits. Extremities: reveal no edema. No clubbing or cyanosis Neurologically awake, alert, oriented x 2-3 with well-coordinated movements. No focal deficits noted Skin: No rash or skin lesions. Psychiatric: Coperative. Nonsuicidal Musculoskeletal: No joint swelling or deformity. Normal range of motion. - Labs CBC & Chem 7: 01/28/24 03:22 01/28/24 03:22 Labs: Abnormal Lab Results - Last 24 Hours (Table) 01/28/24 01/28/24 01/28/24 Range/Units 03:22 03:22 18:15 MCV 98.6 H (80.0-97.0) FL MCHC 31.4 L (32.0-37.0) g/dL Plt Count 136 L (140-440) X 10*3/uL MPV 14.3 H (9.5-12.2) FL Chloride 114 H (96-109) mmol/L Carbon Dioxide 21.4 L (21.6-31.8) mmol/L BUN <3.5 L (9.0-27.0) mg/dL Est GFR (CKD-EPI) 59 L (>=60) BUN/Creatinine Ratio <3.50 L (12.00-20.00) Ratio Glucose 116 H (70-110) mg/dL CSF RBC 76 H (0-10) u/L CSF Total Protein 76 H (12-60) mg/dL Assessment and Plan Assessment: Altered mental status, metabolic encephalopathy with slurred speech, expressive aphasia. Possible metabolic encephalopathy and mild lithium toxicity. Mentation is much improved. Hypernatremia sodium level [id number] Acute kidney injury secondary to the above. Improved Hypothyroidism Gastroesophageal reflux disease Hyperlipidemia Anxiety Depression. Patient is on lithium for a long time. DVT prophylaxis with heparin subcu Vitamin B-12 deficiency Plan: Patient will be continued on IV hydration D5 water. Antibiotics have been discontinued.. Encourage oral intake. [place] is on hold.Repeat Librium level was ordered. Neurology is on board Due to a recent history of mosquito bites and after mental status. Neurology recommends rule out West Nile virus. Scheduled today. Patient will be continued on cyanocobalamin. Monitor sodium level. Neurology is on board. Discussed with her family at bedside in detail. Time with Patient: Greater than 30
[2024-01-29] MEDS: PANTOPRAZOLE 40 MG TABLET PO SCH (08:07)
[2024-01-29 10:20] LABS: BUN/Creat Ratio <3.50 Ratio (12.00-20.00); Blood Urea Nitrogen <3.5 mg/dL (9.0-27.0); Calcium 9.1 mg/dL (8.7-10.3); Carbon Dioxide 21.4 mmol/L (21.6-31.8); Chloride 114 mmol/L (96-109); Glucose 96 mg/dL (70-110); Potassium 3.7 mmol/L (3.5-5.5); Sodium 144 mmol/L (135-145)
--- NOTE | 2024-01-29 10:42 | P.PN ---
Subjective Progress Note Date: 01/28/24 01/28/2024: Patient was seen for a follow-up. Patient continues to be confused. She is pleasant. Denies any headache. Denies any dizziness. 01/27/2024: Patient was seen for a follow-up. Patient's daughter was also present. Patient's daughter believes that she may be slightly better, but not a whole lot. She is still very confused. Patient denies headache. No fever. Patient is having difficulty with speech, stuttering speech. Patient has not showed remarkable improvement with B12 replacement. 01/26/2024: Patient was initially seen by Dr. Walker Bianchi. Please refer to his note for details. Patient was seen for follow-up. Patient's daughter was present. She mentions that patient has developed acute mental status change in the last 1-1/2 to 2 weeks, and has been slowly declining. Patient was brought to the hospital by police as she was noted to be wandering and confused. Patient has history of some baseline mild tremors related to lithium, but now has developed body jerking, which is new. She appears to have some myoclonic jerks. Patient used to talk normally, but now has limitation in her verbal capacity since this week. Patient's daughter, who lives in [place], came over, and noticed that her apartment was in complete disarray, the medications were found in the pocket of her clothes. At present she is unable to tell name of her brothers and sisters. Patient at present denies headache. No fever or chills. There is no previous history of seizures. Patient has no previous history of dementia. Some of the work-up during this hospital visit consisted of: Patient is afebrile. I reviewed the labs work-up Serum glucose is 77 but had one episode of POC glucose 65. Subtle elevated AST and ALT UA is negative for UTI. UDS is not detected and serum alcohol is <10. CT head is negative for acute intracranial process. I personally reviewed CT but with limitation of me reviewing imaging because of computer glitch, I agree with report. Objective - Vital Signs Vital signs: Vital Signs Temp 99 F 01/28/24 14:00 Pulse 96 01/28/24 14:00 Resp 17 01/28/24 14:00 BP 143/86 01/28/24 14:00 Pulse Ox 98 01/28/24 07:29 FiO2 Intake & Output 01/27/24 01/28/24 01/28/24 18:59 06:59 18:59 Intake Total 1080 1620 Balance 1080 1620 Intake: Oral 1080 1620 Other: Voiding Method Toilet # Voids 7 10 6 # Bowel Movements 0 - Exam On examination patient is alert and awake, sitting in the bed. Patient states it is the month of January and the year is 2019. She was able to tell that she has 16 siblings. Patient can repeat very well. No pronator drift. Rest of examination is nonfocal. - Labs CBC & Chem 7: 01/28/24 03:22 01/29/24 05:40 Labs: Abnormal Lab Results - Last 24 Hours (Table) 01/28/24 01/28/24 Range/Units 03:22 03:22 MCV 98.6 H (80.0-97.0) FL MCHC 31.4 L (32.0-37.0) g/dL Plt Count 136 L (140-440) X 10*3/uL MPV 14.3 H (9.5-12.2) FL Chloride 114 H (96-109) mmol/L Carbon Dioxide 21.4 L (21.6-31.8) mmol/L BUN <3.5 L (9.0-27.0) mg/dL Est GFR (CKD-EPI) 59 L (>=60) BUN/Creatinine Ratio <3.50 L (12.00-20.00) Ratio Glucose 116 H (70-110) mg/dL Assessment and Plan Assessment: * 73-year-old female, came with altered mental status, declining cognitive functions, myoclonic jerking for last 1-1/2 to 2 weeks, progressively getting worse. Patient also has some speech difficulty and difficulty finding words. Exact cause remains uncertain. Workup so far is negative. CT head is unremarkable for acute process. Uncertain if related to mild encephalopathy from lithium toxicity, B12 deficiency or some other process. * History of hypothyroidism * History of Depression on Lithim * Vitamin B12 deficiency Plan: Patient continues to have mental status change. Patient has not showed any significant improvement with B12 replacement. Patient daughter admits that patient has been bitten by mosquitoes lately. We will perform lumbar puncture to rule out West Nile virus. TSH 0.061, with free T4 of 1.33. Vitamin B12 <150. [place] level 1.8, which is slightly elevated. [place] currently on hold. Patient has severe vitamin B12 deficiency. We will start vitamin B12 1000 mcg IM subcutaneously daily. EEG was abnormal, due to background slowing, suggestive of moderate encephalopathy. There appears to be questionable sharp activity over the left temporal more than central, that can possibly increase risk for focal delay. But no clear discharges and no seizures noted during the study. Clinical correlation is recommended. Dr. Monroy has given patient Vimpat 100 mg x 1 dose followed by 50 mg twice daily. Carotid Doppler revealed < 50% stenosis of bilateral carotid bifurcation. Antegrade flow in both vertebral arteries. MRI brain without contrast revealed no evidence of intracranial mass or acute/subacute infarct. Nonspecific white matter changes, likely secondary to small vessel ischemic disease. I personally reviewed MRI, agree with the findings. Repeat EEG in a.m. Continue neuro checks Psychiatry is consulted. No evidence of UTI, ceftriaxone discontinued. Consulted PROJECT PRODUCTION ENGINEER. Will defer the rest of medical management to primary team and other specialist.
--- NOTE | 2024-01-29 10:48 | P.PCN ---
Date of Procedure: 01/28/24 Preoperative Diagnosis: Altered mental status, rule out encephalitis Postoperative Diagnosis: Altered mental status, rule out encephalitis Procedure(s) Performed: Lumbar puncture Anesthesia: local Surgeon: Saul Olsen Estimated Blood Loss (ml): 3 Condition: stable Disposition: floor Indications for Procedure: Altered mental status, rule out [place] Nile virus encephalitis. Description of Procedure: Informed consent was obtained from patient's daughter, as well as from the patie nt herself. Very detailed risks and benefits of the procedure, and the indication of procedure was explained to the patient and her son in the presence of nurse. They were informed of the risk of infection, bleeding, numbness, back pain, and the features of post spinal headache and the treatment. Patient was placed on the side of the bed in a sitting position. L5 lumbar space was identified and marked. Procedure performed under very strict aseptic conditions. Low back region was sterilized with ChloraPrep and then Betadine. Low back region was anesthetized with 1% lidocaine at L4. The spinal needle, 3.5 inch, 20-gauge was inserted at L5 lumbar space. I was getting resistance, tried a few times. I consented with the patient about trying lumbar puncture on 1 space higher. She agreed. After a couple attempts, I was able to enter subarachnoid space. Spinal fluid was traumatic and very slightly blood tinged in the first tube, and cleared after in the second tube. About 10 mL of clear and colorless spinal fluid obtained in 4 tubes. Stylet was reintroduced, and then spinal needle withdrawn. Band-Aid was applied. Patient was recommended to lay flat for half an hour. Patient tolerated the procedure very well.
--- NOTE | 2024-01-29 13:38 | P.PN ---
Subjective Progress Note Date: 01/29/24 H&P Date: 01/25/24 This is a 73-year-old female with past medical history significant for hypothyroidism, osteoarthritis anxiety, depression, gastroesophageal reflux disease brought into the ER with altered mental status, confusion, weakness. Patient reports she had not been feeling well for the last couple of days, denied confusion reports she knew what she wanted to say but was unable to get the words out appropriately. ER reports patient was found by neighbors as she was wandering and appeared confused-at her normal baseline. Imaging currently unavailable. Vital signs stable. Denies chest pain, palpitations or shortness of breath. Afebrile, WBC 11.2. Hemoglobin, platelets, INR within normal limits. Sodium 136, potassium 3.5, bicarb 24, BUN 14, creatinine 1.49 magnesium 2.2, mildly elevated AST, ALT troponins negative x 1, UA reporting rare bacteria, toxicology screen reporting serum alcohol less than 10. Telemetry bedside monitor sinus rhythm. 01/29/2024 completed lumbar puncture with neurology yesterday. CSF reported clear, colorless, total protein 76, glucose 67. CSF culture pending. lithium level on admission 1.8, decreased to 0.8. reports she still continues to feel "fuzzy, unsure". Denies lightheadedness dizziness or focal deficits. Reports vision clear. Vitamin B12 less than 150 and started on IV push B12. Afebrile. Objective - Vital Signs Vital signs: Vital Signs Temp 98.5 F 01/29/24 07:05 Pulse 82 01/29/24 07:05 Resp 16 01/29/24 07:05 BP 133/76 01/29/24 07:05 Pulse Ox 95 01/29/24 07:05 FiO2 Intake & Output 01/28/24 01/29/24 01/29/24 18:59 06:59 18:59 Intake Total 1620 240 Balance 1620 240 Intake: Oral 1620 240 Other: Voiding Method Toilet # Voids 6 3 - Exam PHYSICAL EXAM: VITAL SIGNS: [As above] GENERAL: Alert and oriented x 2 ,sitting up in bed, no acute distress HEENT: Conjunctivae normal. eyes normal. MMM. NECK: Supple, No JVD. No thyroid enlargement. No LNs CARDIOVASCULAR: S1, S2 regular. No murmur RESPIRATION: Unlabored, equal air entry, essentially clear with bilateral bases diminished. ABDOMEN: Soft, nontender . No guarding. no masses palpable. No ascites, No hepatosplenomegaly.Bowel sounds heard. EXTREMITIES: No edema, no calf tenderness, positive DP pulses. NERVOUS SYSTEM: Alert and oriented to person, place, president, disoriented to month and day of the week ; thought the day of the week was Sunday when questioned about month, replied . strength and sensation grossly intact. Mild tremors. Skin: Warm and dry, no rash - Labs CBC & Chem 7: 01/28/24 03:22 01/29/24 05:40 Labs: Abnormal Lab Results - Last 24 Hours (Table) 01/28/24 01/28/24 01/28/24 Range/Units 03:22 03:22 18:15 MCV 98.6 H (80.0-97.0) FL MCHC 31.4 L (32.0-37.0) g/dL Plt Count 136 L (140-440) X 10*3/uL MPV 14.3 H (9.5-12.2) FL Chloride 114 H (96-109) mmol/L Carbon Dioxide 21.4 L (21.6-31.8) mmol/L BUN <3.5 L (9.0-27.0) mg/dL Est GFR (CKD-EPI) 59 L (>=60) BUN/Creatinine Ratio <3.50 L (12.00-20.00) Ratio Glucose 116 H (70-110) mg/dL CSF RBC 76 H (0-10) u/L CSF Total Protein 76 H (12-60) mg/dL 01/29/24 Range/Units 05:40 MCV (80.0-97.0) FL MCHC (32.0-37.0) g/dL Plt Count (140-440) X 10*3/uL MPV (9.5-12.2) FL Chloride 114 H (96-109) mmol/L Carbon Dioxide 21.4 L (21.6-31.8) mmol/L BUN <3.5 L (9.0-27.0) mg/dL Est GFR (CKD-EPI) 59 L (>=60) BUN/Creatinine Ratio <3.50 L (12.00-20.00) Ratio Glucose (70-110) mg/dL CSF RBC (0-10) u/L CSF Total Protein (12-60) mg/dL Microbiology - Last 24 Hours (Table) 01/28/24 18:15 CSF Gram Stain - Preliminary Cerebral Spinal Fluid Assessment and Plan Assessment: Altered mental status, metabolic encephalopathy with slurred speech, expressive aphasia, possible TIA, possibly related to lithium toxicity, vitamin B12 deficiency. Neurology workup in progress including CSF viral panel, West Nile virus pending. Dehydration, improving with IV fluid hydration Acute renal injury secondary to the above Hypothyroidism Gastroesophageal reflux disease Hyperlipidemia Anxiety Depression, on lithium Vitamin B12 deficiency Plan: Continue on current medication resume ,monitoring and symptomatic treatment. Psychiatry on consult- [place] as per psychiatry. neurology workup in progress including repeat EEG-prolonged ordered for this morning. The impression and plan of care has been dictated as directed. : I performed a history and examination of this patient, discussed the same with the dictator. I agree with the dictator's note ,documented as a scribe. Any additional findings or plans will be noted.
[2024-01-29] MEDS: LITHIUM CARBONATE 300 MG CAP PO SCH (21:59)
--- NOTE | 2024-01-30 13:01 | P.PN ---
Subjective Progress Note Date: 01/29/24 01/29/2024: Patient was seen for a follow-up. Patient is laying comfortably in the bed. Patient's one of the friend was present who agrees that patient is very confused. This started very acutely about 7 to 10 days ago. Previously she used to be a normal individual. 01/28/2024: Patient was seen for a follow-up. Patient continues to be confused. She is pleasant. Denies any headache. Denies any dizziness. 01/27/2024: Patient was seen for a follow-up. Patient's daughter was also present. Patient's daughter believes that she may be slightly better, but not a whole lot. She is still very confused. Patient denies headache. No fever. Patient is having difficulty with speech, stuttering speech. Patient has not showed remarkable improvement with B12 replacement. 01/26/2024: Patient was initially seen by Dr. Walker Bianchi. Please refer to his note for details. Patient was seen for follow-up. Patient's daughter was present. She mentions that patient has developed acute mental status change in the last 1-05/29 to 2 wee ks, and has been slowly declining. Patient was brought to the hospital by police as she was noted to be wandering and confused. Patient has history of some baseline mild tremors related to lithium, but now has developed body jerking, which is new. She appears to have some myoclonic jerks. Patient used to talk normally, but now has limitation in her verbal capacity since this week. Patient's daughter, who lives in [place], came over, and noticed that her apartment was in complete disarray, the medications were found in the pocket of her clothes. At present she is unable to tell name of her brothers and sisters. Patient at present denies headache. No fever or chills. There is no previous history of seizures. Patient has no previous history of dementia. Some of the work-up during this hospital visit consisted of: Patient is afebrile. I reviewed the labs work-up Serum glucose is 77 but had one episode of POC glucose 65. Subtle elevated AST and ALT UA is negative for UTI. UDS is not detected and serum alcohol is <10. CT head is negative for acute intracranial process. I personally reviewed CT but with limitation of me reviewing imaging because of computer glitch, I agree with report. Objective - Vital Signs Vital signs: Vital Signs Temp 98.5 F 01/30/24 11:57 Pulse 82 01/30/24 11:57 Resp 16 01/30/24 11:57 BP 155/89 01/30/24 11:57 Pulse Ox 99 01/30/24 11:57 FiO2 Intake & Output 01/29/24 01/30/24 01/30/24 18:59 06:59 18:59 Intake Total 1320 Balance 1320 Intake: Oral 1320 Other: Voiding Method Toilet Toilet # Voids 6 3 - Exam On examination patient is alert and awake, laying comfortably in the bed. Patient states it is month of March and the year is 2023. She knows that she is in [facility] imported on [place]. Patient can repeat very well. No pronator drift. Rest of examination is nonfocal. - Labs CBC & Chem 7: 01/28/24 03:22 01/29/24 05:40 Labs: Microbiology - Last 24 Hours (Table) 01/28/24 18:15 CSF Gram Stain - Preliminary Cerebral Spinal Fluid CSF Culture - Preliminary Assessment and Plan Assessment: * 73-year-old female, came with altered mental status, declining cognitive functions, myoclonic jerking for last 1-1/2 to 2 weeks, progressively getting worse. Patient also has some speech difficulty and difficulty finding words. Exact cause remains uncertain. Workup so far is negative. MRI brain unrema rkable for acute process. Uncertain if related to mild encephalopathy from lithium toxicity, B12 deficiency or some other process. * History of hypothyroidism * [place] toxicity * Depression * Vitamin B12 deficiency Plan: Patient continues to have mental status change. Patient has not showed any significant improvement with B12 replacement. Patient daughter admits that patient has been bitten by mosquitoes lately. Cerebrospinal fluid revealed colorless, clear, WBC count 0, total RBC 76, all fresh RBCs 100%. CSF protein 76/60, glucose is normal 67. CSF viral panel, West Nile virus pending. TSH 0.061, with free T4 of 1.33. Vitamin B12 <150. [place] level 1.8, which is slightly elevated. [place] currently on hold. Patient has severe vitamin B12 deficiency. We will start vitamin B12 1000 mcg IM subcutaneously daily. EEG was abnormal, due to background slowing, suggestive of moderate encephalopathy. There appears to be questionable sharp activity over the left temporal more than central, that can possibly increase risk for focal delay. But no clear discharges and no seizures noted during the study. Clinical correlation is recommended. Dr. Bianchi has given patient Vimpat 100 mg x 1 dose followed by 50 mg twice daily. Carotid Doppler revealed < 50% stenosis of bilateral carotid bifurcation. Antegrade flow in both vertebral arteries. MRI brain without contrast revealed no evidence of intracranial mass or acute/subacute infarct. Nonspecific white matter changes, likely secondary to small vessel ischemic disease. I personally reviewed MRI, agree with the findings. Patient underwent repeat prolonged EEG for 1 hour today. Will review the results. Continue neuro checks Psychiatry is consulted. No evidence of UTI, ceftriaxone discontinued. Consulted MACHINE SHORTHAND TEACHER. Will defer the rest of medical management to primary team and other specialist.
--- NOTE | 2024-01-30 14:25 | EEG ---
ELECTROENCEPHALOGRAM REPORT PREAMBLE: This is a 73-year-old female with persistent altered mental status, confusion. This study is performed to evaluate for encephalopathy, rule out any epileptiform activity. CURRENT MEDICATIONS: 1. Vimpat 50 mg b.i.d. 2. B12. 3. Synthroid. EEG FINDINGS: This is a prolonged, 21-channel digital EEG recorded with video component, utilizing 10/20 international system with referential and bipolar montages. The study is poor performed for 1 hour. Recording start time is 2:48 p.m. on 01/29/2024 and recording end time is 3:52 p.m. on 01/29/2024. The background consists of moderately well-developed, but poorly regulated, mixed frequencies of diffuse 4-6 hertz theta, intermixed with some delta activity in bihemispheric region. Sporadically, slightly relatively improved background in 7 hertz theta was also seen in posterior head region. Background does not seem to be reactive to eye opening or closing. Photic stimulation was not done. Hyperventilation was not done. The patient was drowsy and sleeping in most of the study, with presence of some vertex waves and sleep spindles. No focal or generalized epileptiform activity was seen. No electrographic seizures were recorded. IMPRESSION: This is an abnormal EEG due to background slowing of mild to moderate degree. This is suggestive of generalized cerebral dysfunction as can be seen with toxic metabolic encephalopathy or related to diffuse structural brain abnormality. Clinical correlation is recommended. No epileptiform activity was seen. No electrographic seizure was recorded. When compared to the previous EEG from 01/25/2024, the background has improved. MMROMULOL / IJN: [id number] / [facility]
--- NOTE | 2024-01-30 19:50 | P.PN ---
Subjective Progress Note Date: 01/30/24 01/30/2024: Patient was seen for a follow-up. A sitter was also present. Patient denies headache, any numbness or dizziness. She has been walking without any difficulty. Patient does remember that she has only 1 daughter, who lives in [facility]. She does remember she has 17 siblings. 01/29/2024: Patient was seen for a follow-up. Patient is laying comfortably in the bed. Patient's one of the friend was present who agrees that patient is very confused. This started very acutely about 7 to 10 days ago. Previously she used to be a normal individual. 01/28/2024: Patient was seen for a follow-up. Patient continues to be confused. She is pleasant. Denies any headache. Denies any dizziness. 01/27/2024: Patient was seen for a follow-up. Patient's daughter was also present. Patient's daughter believes that she may be slightly better, but not a whole lot. She is still very confused. Patient denies headache. No fever. Patient is having difficulty with speech, stuttering speech. Patient has not s howed remarkable improvement with B12 replacement. 01/26/2024: Patient was initially seen by Dr. Walker Bianchi. Please refer to his note for details. Patient was seen for follow-up. Patient's daughter was present. She mentions that patient has developed acute mental status change in the last 1-1/2 to 2 weeks, and has been slowly declining. Patient was brought to the hospital by police as she was noted to be wandering and confused. Patient has history of some baseline mild tremors related to lithium, but now has developed body jerking, which is new. She appears to have some myoclonic jerks. Patient used to talk normally, but now has limitation in her verbal capacity since this week. Patient's daughter, who lives in [place], came over, and noticed that he r apartment was in complete disarray, the medications were found in the pocket of her clothes. At present she is unable to tell name of her brothers and sisters. Patient at present denies headache. No fever or chills. There is no previous history of seizures. Patient has no previous history of dementia. Some of the work-up during this hospital visit consisted of: Patient is afebrile. I reviewed the labs work-up Serum glucose is 77 but had one episode of POC glucose 65. Subtle elevated AST and ALT UA is negative for UTI. UDS is not detected and serum alcohol is <10. CT head is negative for acute intracranial process. I personally reviewed CT but with limitation of me reviewing imaging because of computer glitch, I agree with report. Objective - Vital Signs Vital signs: Vital Signs Temp 98.3 F 01/30/24 19:33 Pulse 83 01/30/24 19:33 Resp 16 01/30/24 19:33 BP 137/83 01/30/24 19:33 Pulse Ox 100 01/30/24 19:33 FiO2 Intake & Output 01/30/24 01/30/24 01/31/24 06:59 18:59 06:59 Intake Total 400 Balance 400 Intake: Oral 400 Other: Voiding Method Toilet Toilet # Voids 3 - Exam On examination patient is alert and awake, laying comfortably in the bed. Patient again states it is month of March and the year is 2023. She knows that she is in [facility], in [place], she knows name of the current president Mr. White. [place]. Patient can repeat very well. No pronator drift. Rest of examination is nonfocal. - Labs CBC & Chem 7: 01/28/24 03:22 01/29/24 05:40 Labs: Microbiology - Last 24 Hours (Table) 01/28/24 18:15 CSF Gram Stain - Preliminary Cerebral Spinal Fluid CSF Culture - Preliminary Assessment and Plan Assessment: * 73-year-old female, came with altered mental status, declining cognitive functions, myoclonic jerking for last 1-1/2 to 2 weeks, progressively getting worse. Patient also has some speech difficulty and difficulty finding words. Exact cause remains uncertain. Workup so far is negative. MRI brain unremarkable for acute process. Uncertain if related to mild encephalopathy from lithium toxicity, B12 deficiency or some other process. * History of hypothyroidism * [place] toxicity * Depression * Vitamin B12 deficiency Plan: Patient continues to have mental status change. Patient has not showed any significant improvement with B12 replacement. Patient daughter admits that patient has been bitten by mosquitoes lately. Cerebrospinal fluid revealed colorless, clear, WBC count 0, total RBC 76, all fresh RBCs 100%. CSF protein 76/60, glucose is normal 67. CSF cytology revealed hypocellular specimen with scattered mature lymphocytes. No cytologically malignant cells. CSF viral panel came back negative. CSF West Nile virus pending. We will check serum for NMDA antibodies. TSH 0.061, with free T4 of 1.33. Vitamin B12 <150. [place] level 1.8, which is slightly elevated. [place] currently on hold. Patient has severe vitamin B12 deficiency. Patient has received vitamin B12 injections daily for several days. We will now switch to vitamin B12 1000 mcg orally. Initial EEG (reported by Dr. Bianchi) was abnormal, due to background slowing, suggestive of moderate encephalopathy. There appears to be questionable sharp activity over the left temporal more than central, that can possibly increase risk for focal delay. But no clear discharges and no seizures noted during the study. Clinical correlation is recommended. Repeat, prolonged EEG for 1 hour performed yesterday, was abnormal due to background slowing of mild to moderate degree. This is suggestive of g eneralized cerebral dysfunction as can be seen with toxic metabolic encephalopathy or related to diffuse structural brain abnormality. Clinical correlation is recommended. No epileptiform activity was seen. No electrographic seizure was recorded. When compared to the EEG from 01/25/2024, the background has improved. Patient never had any clinical seizure. We will stop Vimpat. Carotid Doppler revealed < 50% stenosis of bilateral carotid bifurcation. Antegrade flow in both vertebral arteries. MRI brain without contrast revealed no evidence of intracranial mass or acute/subacute infarct. Nonspecific white matter changes, likely secondary to small vessel ischemic disease. I personally reviewed MRI, agree with the findings. Continue neuro checks Psychiatry is consulted. No evidence of UTI, ceftriaxone discontinued. Consulted EMBROIDERY SUPERVISOR. Will defer the rest of medical management to primary team and other specialist. Patient to follow-up with neurologist outpatient in 1 to 2 weeks.
[2024-01-31 08:58] VITALS: BMI 27.3
[2024-01-31 09:23] LABS: Calcium 9.2 mg/dL (8.7-10.3); Carbon Dioxide 24.2 mmol/L (21.6-31.8); Chloride 113 mmol/L (96-109); Glucose 96 mg/dL (70-110); Potassium 3.6 mmol/L (3.5-5.5); Sodium 145 mmol/L (135-145)
[2024-01-31] MEDS: CYANOCOBALAMIN 500 MCG TAB PO SCH (10:02)
--- NOTE | 2024-01-31 16:30 | P.PN ---
Subjective Progress Note Date: 01/31/24 01/31/2024: Patient was seen for a follow-up. Patient is laying comfortably in the bed. Patient is very pleasant. Denies any headache or dizziness. She wants to go home. Her gait has been stable. Her speech has been fluent. 01/30/2024: Patient was seen for a follow-up. A sitter was also present. Patient denies headache, any numbness or dizziness. She has been walking without any difficulty. Patient does remember that she has only 1 daughter, who lives in [facility]. She does remember she has 17 siblings. 01/29/2024: Patient was seen for a follow-up. Patient is laying comfortably in the bed. Patient's one of the friend was present who agrees that patient is very confused. This started very acutely about 7 to 10 days ago. Previously she used to be a normal individual. 01/28/2024: Patient was seen for a follow-up. Patient continues to be confused. She is pleasant. Denies any headache. Denies any dizziness. 01/27/2024: Patient was seen for a follow-up. Patient's daughter was also present. Patient's daughter believes that she may be slightly better, but not a whole lot. She is still very confused. Patient denies headache. No fever. Patient is having difficulty with speech, stuttering speech. Patient has not showed remarkable improvement with B12 replacement. 01/26/2024: Patient was initially seen by Dr. Walker Bianchi. Please refer to his note for details. Patient was seen for follow-up. Patient's daughter was present. She mentions that patient has developed acute mental status change in the last 1-1/2 to 2 weeks, and has been slowly declining. Patient was brought to the hospital by police as she was noted to be wandering and confused. Patient has history of some baseline mild tremors related to lithium, but now has developed body jerking, which is new. She appears to have some myoclonic jerks. Patient used to talk normally, but now has limitation in her verbal capacity since this week. Patient's daughter, who lives in [place], came over, and noticed that her apartment was in complete disarray, the medications were found in the pocket of her clothes. At present she is unable to tell name of her brothers and sisters. Patient at present denies headache. No fever or chills. There is no previous history of seizures. Patient has no previous history of dementia. Some of the work-up during this hospital visit consisted of: Patient is afebrile. I reviewed the labs work-up Serum glucose is 77 but had one episode of POC glucose 65. Subtle elevated AST and ALT UA is negative for UTI. UDS is not detected and serum alcohol is <10. CT head is negative for acute intracranial process. I personally reviewed CT but with limitation of me reviewing imaging because of computer glitch, I agree with report. Objective - Vital Signs Vital signs: Vital Signs Temp 98.1 F 01/31/24 08:00 Pulse 78 01/31/24 08:00 Resp 18 01/31/24 08:00 BP 137/84 01/31/24 08:00 Pulse Ox 96 01/31/24 09:11 FiO2 Intake & Output 01/30/24 01/31/24 01/31/24 18:59 06:59 18:59 Intake Total 400 Balance 400 Weight 81.647 kg Intake: Oral 400 Other: Voiding Method Toilet # Voids 3 - Exam On examination patient is alert and awake, laying comfortably in the bed. She knows that she is in [facility], in [facility] in [place]. She knows name of the current president Mr. White. Patient can repeat very well. No pronator drift. Rest of examination is nonfocal. - Labs CBC & Chem 7: 01/28/24 03:22 01/31/24 03:47 Labs: Abnormal Lab Results - Last 24 Hours (Table) 01/31/24 Range/Units 03:47 Chloride 113 H (96-109) mmol/L BUN 4.0 L (9.0-27.0) mg/dL BUN/Creatinine Ratio 5.00 L (12.00-20.00) Ratio Microbiology - Last 24 Hours (Table) 01/28/24 18:15 CSF Gram Stain - Preliminary Cerebral Spinal Fluid CSF Culture - Preliminary Assessment and Plan Assessment: * 73-year-old female, came with altered mental status, declining cognitive functions, myoclonic jerking for last 1-1/2 to 2 weeks, progressively getting worse. Patient also has some speech difficulty and difficulty finding words. Exact cause remains uncertain. Workup so far is negative. MRI brain unremarkable for acute process. Probable due to metabolic encephalopathy from lithium toxicity, B12 deficiency, or some unidentified process. * History of hypothyroidism * [place] toxicity * Depression * Vitamin B12 deficiency Plan: Patient continues to have mental status change. Patient has not showed any significant improvement with B12 replacement. Patient daughter admits that patient has been bitten by mosquitoes lately. Cerebrospinal fluid revealed colorless, clear, WBC count 0, total RBC 76, all fresh RBCs 100%. CSF protein 76/60, glucose is normal 67. CSF cytology revealed hypocellular specimen with scattered mature lymphocytes. No cytologically malignant cells. CSF viral panel came back negative. CSF West Nile virus pending. Await NMDA antibodies. This may take several days. TSH 0.061, with free T4 of 1.33. Vitamin B12 <150. [place] level 1.8, which is slightly elevated. [place] currently on hold. Patient has severe vitamin B12 deficiency. Patient has received vitamin B12 injections daily for several days. We will now switch to vitamin B12 1000 mcg orally. Initial EEG (reported by Dr. Bianchi) was abnormal, due to background slowing, suggestive of moderate encephalopathy. There appears to be questionable sharp activity over the left temporal more than central, that can possibly increase risk for focal delay. But no clear discharges and no seizures noted during the study. Clinical correlation is recommended. Repeat, prolonged EEG for 1 hour 01/29/2024, was abnormal due to background slowing of mild to moderate degree. This is suggestive of generalized cerebral dysfunction as can be seen with toxic metabolic encephalopathy or related to diffuse structural brain abnormality. Clinical correlation is recommended. No epileptiform activity was seen. No electrographic seizure was recorded. When compared to the EEG from 01/25/2024, the background has improved. Patient never had any clinical seizure. We will stop Vimpat. Carotid Doppler revealed < 50% stenosis of bilateral carotid bifurcation. Antegrade flow in both vertebral arteries. MRI brain without contrast revealed no evidence of intracranial mass or acute/subacute infarct. Nonspecific white matter changes, likely secondary to small vessel ischemic disease. I personally reviewed MRI, agree with the findings. Psychiatry is consulted. No evidence of UTI, ceftriaxone discontinued. Consulted LOT ATTENDANT. Will defer the rest of medical management to primary team and other specialist. Recommend patient to follow-up with neurologist outpatient in 1 to 2 weeks.
--- NOTE | 2024-01-31 16:52 | P.PN ---
Subjective Progress Note Date: 01/31/24 H&P Date: 01/25/24 This is a 73-year-old female with past medical history significant for hypothyroidism, osteoarthritis anxiety, depression, gastroesophageal reflux disease brought into the ER with altered mental status, confusion, weakness. Patient reports she had not been feeling well for the last couple of days, denied confusion reports she knew what she wanted to say but was unable to get the words out appropriately. ER reports patient was found by neighbors as she was wandering and appeared confused-at her normal baseline. Imaging currently unavailable. Vital signs stable. Denies chest pain, palpitations or shortness of breath. Afebrile, WBC 11.2. Hemoglobin, platelets, INR within normal limits. Sodium 136, potassium 3.5, bicarb 24, BUN 14, creatinine 1.49 magnesium 2.2, mildly elevated AST, ALT troponins negative x 1, UA reporting rare bacteria, toxicology screen reporting serum alcohol less than 10. Telemetry bedside monitor sinus rhythm. 01/29/2024 completed lumbar puncture with neurology yesterday. CSF reported clear, colorless, total protein 76, glucose 67. CSF culture pending. lithium level on admission 1.8, decreased to 0.8. reports she still continues to feel "fuzzy, unsure". Denies lightheadedness dizziness or focal deficits. Reports vision clear. Vitamin B12 less than 150 and started on IV push B12. Afebrile. 01/30/2024 alert and oriented x 3, scheduled for continuous prolonged EEG this afternoon. Sitter at bedside. Denies headache. Denies blurred vision. CSF pathology pending. Alert and oriented x 3, but states that her "processing" takes a little longer. Objective - Vital Signs Vital signs: Vital Signs Temp 98.5 F 01/30/24 11:57 Pulse 82 01/30/24 11:57 Resp 16 01/30/24 11:57 BP 155/89 01/30/24 11:57 Pulse Ox 99 01/30/24 11:57 FiO2 Intake & Output 01/29/24 01/30/24 01/30/24 18:59 06:59 18:59 Intake Total 1320 Balance 1320 Intake: Oral 1320 Other: Voiding Method Toilet Toilet # Voids 6 3 - Exam PHYSICAL EXAM: VITAL SIGNS: [As above] GENERAL: Alert, sitting up in bed, no acute distress HEENT: Conjunctivae normal. eyes normal. MMM. NECK: Supple, No JVD. CARDIOVASCULAR: S1, S2 regular. No murmur RESPIRATION: Unlabored, equal air entry, clear to auscultation ABDOMEN: Soft, nontender . No guarding. Positive bowel sounds EXTREMITIES: No edema, no calf tenderness, positive DP pulses. NERVOUS SYSTEM: Alert and oriented x2- 3. Strength and sensation grossly intact. Skin: Warm and dry, no rash - Labs CBC & Chem 7: 01/28/24 03:22 01/31/24 03:47 Labs: Microbiology - Last 24 Hours (Table) 01/28/24 18:15 CSF Gram Stain - Preliminary Cerebral Spinal Fluid CSF Culture - Preliminary Assessment and Plan Assessment: Altered mental status, metabolic encephalopathy with slurred speech, expressive aphasia, possible TIA, possibly related to lithium toxicity, vitamin B12 deficiency. Neurology workup in progress including CSF viral panel, West Nile virus pending. Dehydration, improving with IV fluid hydration Acute renal injury secondary to the above Hypothyroidism Gastroesophageal reflux disease Hyperlipidemia Anxiety Depression, on lithium Vitamin B12 deficiency Plan: Continue on current medication resume ,monitoring and symptomatic treatment. EEG-prolonged ordered for this morning. Maintain on vitamin B12. Workup for potential autoimmune diseases in progress. The impression and plan of care has been dictated as directed. : I performed a history and examination of this patient, discussed the same with the dictator. I agree with the dictator's note ,documented as a scribe. Any additional findings or plans will be noted.
--- NOTE | 2024-01-31 17:02 | P.PN ---
Subjective Progress Note Date: 01/31/24 H&P Date: 01/25/24 This is a 73-year-old female with past medical history significant for hypothyroidism, osteoarthritis anxiety, depression, gastroesophageal reflux disease brought into the ER with altered mental status, confusion, weakness. Patient reports she had not been feeling well for the last couple of days, denied confusion reports she knew what she wanted to say but was unable to get the words out appropriately. ER reports patient was found by neighbors as she was wandering and appeared confused-at her normal baseline. Imaging currently unavailable. Vital signs stable. Denies chest pain, palpitations or shortness of breath. Afebrile, WBC 11.2. Hemoglobin, platelets, INR within normal limits. Sodium 136, potassium 3.5, bicarb 24, BUN 14, creatinine 1.49 magnesium 2.2, mildly elevated AST, ALT troponins negative x 1, UA reporting rare bacteria, toxicology screen reporting serum alcohol less than 10. Telemetry bedside monitor sinus rhythm. 01/29/2024 completed lumbar puncture with neurology yesterday. CSF reported clear, colorless, total protein 76, glucose 67. CSF culture pending. lithium level on admission 1.8, decreased to 0.8. reports she still continues to feel "fuzzy, unsure". Denies lightheadedness dizziness or focal deficits. Reports vision clear. Vitamin B12 less than 150 and started on IV push B12. Afebrile. 01/30/2024 alert and oriented x 3, scheduled for continuous prolonged EEG this afternoon. Sitter at bedside. Denies headache. Denies blurred vision. CSF pathology pending. Alert and oriented x 3, but states that her "processing" takes a little longer. 01/31/2024 prolonged EEG completed yesterday reporting abnormal due to background slowing of moderate degree, suggestive of generalized cerebral dysfunction as seen with toxic metabolic encephalopathy or related to diffuse structural brain abnormality. No epileptiform activity was seen, no electrographic seizure recorded. Questioned patient about her 17 siblings. Asked her to name her siblings, she experienced difficulty recalling their names- only able to name 1. CSF aerobic culture reported no growth after 48 hours, Gram stain reported no polymorphonuclear leukocytes, no organisms seen. Cerebrospinal fluid cytology reported hypocellular specimen with scattered mature lymphocytes, no cytologically malignant cells identified. CSF West Nile virus pending. NMDA antibodies pending. Objective - Vital Signs Vital signs: Vital Signs Temp 98.5 F 01/31/24 12:04 Pulse 77 01/31/24 12:04 Resp 17 01/31/24 12:04 BP 147/88 01/31/24 12:04 Pulse Ox 98 01/31/24 12:04 FiO2 Intake & Output 01/30/24 01/31/24 01/31/24 18:59 06:59 18:59 Intake Total 400 Balance 400 Weight 81.647 kg Intake: Oral 400 Other: Voiding Method Toilet # Voids 3 - Exam PHYSICAL EXAM: VITAL SIGNS: [As above] GENERAL: Pleasant, cooperative ,alert, sitting up in bed, no acute distress HEENT: Conjunctivae normal. eyes normal. MMM. NECK: Supple, No JVD. CARDIOVASCULAR: S1, S2 regular. No murmur RESPIRATION: Unlabored, equal air entry, clear to auscultation ABDOMEN: Soft, nontender . No guarding. Positive bowel sounds EXTREMITIES: No edema, no calf tenderness, positive DP pulses. NERVOUS SYSTEM: Alert and oriented x3. Strength and sensation grossly intact. Skin: Warm and dry, no rash - Labs CBC & Chem 7: 01/28/24 03:22 01/31/24 03:47 Labs: Abnormal Lab Results - Last 24 Hours (Table) 01/31/24 Range/Units 03:47 Chloride 113 H (96-109) mmol/L BUN 4.0 L (9.0-27.0) mg/dL BUN/Creatinine Ratio 5.00 L (12.00-20.00) Ratio Microbiology - Last 24 Hours (Table) 01/28/24 18:15 CSF Gram Stain - Preliminary Cerebral Spinal Fluid CSF Culture - Preliminary Assessment and Plan Assessment: Altered mental status, metabolic encephalopathy with slurred speech, expressive aphasia, possible TIA, possibly related to lithium toxicity, vitamin B12 deficiency. Neurology workup in progress including CSF viral panel, West Nile virus pending. Dehydration, improving with IV fluid hydration Acute renal injury secondary to the above Hypothyroidism Gastroesophageal reflux disease Hyperlipidemia Anxiety Depression, on lithium Vitamin B12 deficiency Plan: Continue on current medication resume ,monitoring and symptomatic treatment. CSF West Nile virus pending. NMDA antibodies pending. Continue vitamin B12. The impression and plan of care has been dictated as directed. : I performed a history and examination of this patient, discussed the same with the dictator. I agree with the dictator's note ,documented as a scribe. Any additional findings or plans will be noted.
--- NOTE | 2024-02-01 17:17 | P.PN ---
Subjective Progress Note Date: 02/01/24 H&P Date: 01/25/24 This is a 73-year-old female with past medical history significant for hypothyroidism, osteoarthritis anxiety, depression, gastroesophageal reflux disease brought into the ER with altered mental status, confusion, weakness. Patient reports she had not been feeling well for the last couple of days, denied confusion reports she knew what she wanted to say but was unable to get the words out appropriately. ER reports patient was found by neighbors as she was wandering and appeared confused-at her normal baseline. Imaging currently unavailable. Vital signs stable. Denies chest pain, palpitations or shortness of breath. Afebrile, WBC 11.2. Hemoglobin, platelets, INR within normal limits. Sodium 136, potassium 3.5, bicarb 24, BUN 14, creatinine 1.49 magnesium 2.2, mildly elevated AST, ALT troponins negative x 1, UA reporting rare bacteria, toxicology screen reporting serum alcohol less than 10. Telemetry bedside monitor sinus rhythm. 01/29/2024 completed lumbar puncture with neurology yesterday. CSF reported clear, colorless, total protein 76, glucose 67. CSF culture pending. lithium level on admission 1.8, decreased to 0.8. reports she still continues to feel "fuzzy, unsure". Denies lightheadedness dizziness or focal deficits. Reports vision clear. Vitamin B12 less than 150 and started on IV push B12. Afebrile. 01/30/2024 alert and oriented x 3, scheduled for continuous prolonged EEG this afternoon. Sitter at bedside. Denies headache. Denies blurred vision. CSF pathology pending. Alert and oriented x 3, but states that her "processing" takes a little longer. 01/31/2024 prolonged EEG completed yesterday reporting abnormal due to background slowing of moderate degree, suggestive of generalized cerebral dysfunction as seen with toxic metabolic encephalopathy or related to diffuse structural brain abnormality. No epileptiform activity was seen, no electrographic seizure recorded. Questioned patient about her 17 siblings. Asked her to name her siblings, she experienced difficulty recalling their names- only able to name 1. CSF aerobic culture reported no growth after 48 hours, Gram stain reported no polymorphonuclear leukocytes, no organisms seen. Cerebrospinal fluid cytology reported hypocellular specimen with scattered mature lymphocytes, no cytologically malignant cells identified. CSF West Nile virus pending. NMDA antibodies pending. [place] levels 1.8, 0.8, 0.5. 9/6/24 less confused, sitter removed yesterday .speech fluent yet varying degrees of responses expressed, delayed at times/impaired cognitive processing persists. reports difficulty falling asleep. Denies depression or anxiety, denies fear. Denies headache, blurred vision. Denies lightheadedness, or dizziness. Denies nausea or vomiting. Objective - Vital Signs Vital signs: Vital Signs Temp 98.2 F 02/01/24 07:51 Pulse 71 02/01/24 07:51 Resp 20 02/01/24 07:51 BP 133/86 02/01/24 07:51 Pulse Ox 98 02/01/24 07:51 FiO2 Intake & Output 01/31/24 02/01/24 02/01/24 18:59 06:59 18:59 Intake Total 540 Balance 540 Weight 81.647 kg Intake: Oral 540 Other: # Voids 1 2 1 - Exam PHYSICAL EXAM: VITAL SIGNS: [As above] GENERAL: Pleasant, cooperative ,alert, sitting up at side of bed, no acute distress HEENT: Conjunctivae normal. eyes normal. MMM. NECK: Supple, No JVD. CARDIOVASCULAR: S1, S2 regular. No murmur RESPIRATION: Unlabored, equal air entry, clear to auscultation ABDOMEN: Soft, nontender . No guarding. Positive bowel sounds EXTREMITIES: No edema, no calf tenderness, positive DP pulses. NERVOUS SYSTEM: Alert and oriented x3. Mild tremors .strength and sensation grossly intact. Skin: Warm and dry, no rash - Labs CBC & Chem 7: 01/28/24 03:22 01/31/24 03:47 Assessment and Plan Assessment: Altered mental status, metabolic encephalopathy with slurred speech, expressive aphasia, possible TIA, possibly related to lithium toxicity, vitamin B12 deficiency. Neurology following. Dehydration, improving with IV fluid hydration Acute renal injury secondary to the above Hypothyroidism Gastroesophageal reflux disease Hyperlipidemia Anxiety Depression, on lithium Vitamin B12 deficiency Plan: Continue on current medication resume ,monitoring and symptomatic treatment. Continue vitamin B12. Blood lead level ordered. Reevaluation today with speech therapist. The impression and plan of care has been dictated as directed. : I performed a history and examination of this patient, discussed the same with the dictator. I agree with the dictator's note ,documented as a scribe. Any additional findings or plans will be noted.
--- NOTE | 2024-02-01 20:49 | P.PN ---
Subjective Progress Note Date: 02/01/24 02/01/2024: Patient was seen for a follow-up. Patient is laying comfortably in the bed. Wants to go home. Denies any headache or dizziness. Speech fluent yet delayed at times/impaired cognitive processing persists. 01/31/2024: Patient was seen for a follow-up. Patient is laying comfortably in the bed. Patient is very pleasant. Denies any headache or dizziness. She wants to go home. Her gait has been stable. Her speech has been fluent. 01/30/2024: Patient was seen for a follow-up. A sitter was also present. Patient denies headache, any numbness or dizziness. She has been walking without any difficulty. Patient does remember that she has only 1 daughter, who lives in [facility]. She does remember she has 17 siblings. 01/29/2024: Patient was seen for a follow-up. Patient is laying comfortably in the bed. Patient's one of the friend was present who agrees that patient is very confused. This started very acutely about 7 to 10 days ago. Previously she used to be a normal individual. 01/28/2024: Patient was seen for a follow-up. Patient continues to be confused. She is pleasant. Denies any headache. Denies any dizziness. 01/27/2024: Patient was seen for a follow-up. Patient's daughter was also present. Patient's daughter believes that she may be slightly better, but not a whole lot. She is still very confused. Patient denies headache. No fever. Patient is having difficulty with speech, stuttering speech. Patient has not showed remarkable improvement with B12 replacement. 01/26/2024: Patient was initially seen by Dr. Walker Bianchi. Please refer to his note for details. Patient was seen for follow-up. Patient's daughter was present. She mentions that patient has developed acute mental status change in the last 1-1/2 to 2 weeks, and has been slowly declining. Patient was brought to the hospital by police as she was noted to be wandering and confused. Patient has history of some baseline mild tremors related to lithium, but now has developed body jerking, which is new. She appears to have some myoclonic jerks. Patient used to talk normally, but now has limitation in her verbal capacity since this week. Patient's daughter, who lives in [place], came over, and noticed that her apartment was in complete disarray, the medications were found in the pocket of her clothes. At present she is unable to tell name of her brothers and sisters. Patient at present denies headache. No fever or chills. There is no previous history of seizures. Patient has no previous history of dementia. Some of the work-up during this hospital visit consisted of: Patient is afebrile. I reviewed the labs work-up Serum glucose is 77 but had one episode of POC glucose 65. Subtle elevated AST and ALT UA is negative for UTI. UDS is not detected and serum alcohol is <10. CT head is negative for acute intracranial process. I personally reviewed CT but with limitation of me reviewing imaging because of computer glitch, I agree with report. Objective - Vital Signs Vital signs: Vital Signs Temp 98.1 F 02/01/24 14:00 Pulse 86 02/01/24 14:00 Resp 18 02/01/24 14:00 BP 125/77 02/01/24 14:00 Pulse Ox 96 02/01/24 14:00 FiO2 Intake & Output 01/31/24 02/01/24 02/01/24 18:59 06:59 18:59 Intake Total 540 Balance 540 Weight 81.647 kg Intake: Oral 540 Other: # Voids 1 2 1 # Bowel Movements 1 - Exam On examination patient is alert and awake, laying comfortably in the bed. Patient states it is 05/20. She says it is the month before April. But then she said, it is January and the year is . I clarified, that the month before April is March, and asked which month is it March or January. Patient said January. She knows that she is in [facility], in [place], in [place]. She knows name of the current president Mr. White. She s till has some word finding difficulty. Patient can repeat very well. No pronator drift. Rest of examination is nonfocal. 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 Patient also has some speech difficulty and difficulty finding words. Exact cause remains uncertain. Workup so far is negative. MRI brain unremarkable for acute process. Probable due to metabolic encephalopathy from lithium toxicity, B12 deficiency, or some unidentified process. * History of hypothyroidism * [place] toxicity * Depression * Vitamin B12 deficiency Plan: Patient's mentation is much improved. However she is still not back to baseline. She still has some word finding problem. Cerebrospinal fluid revealed colorless, clear, WBC count 0, total RBC 76, all fresh RBCs 100%. CSF protein 76/60, glucose is normal 67. CSF cytology revealed hypocellular specimen with scattered mature lymphocytes. No cytologically malignant cells. CSF viral panel came back negative. CSF West Nile virus pending. Await NMDA antibodies. Serum lead level being checked by PCP. TSH 0.061, with free T4 of 1.33. Vitamin B12 <150. [place] level 1.8, which is slightly elevated. [place] currently on hold. Repeat lithium level 0.5, which is subtherapeutic. Patient has severe vitamin B12 deficiency. Patient has received vitamin B12 injections daily for several days. We will now switch to vitamin B12 1000 mcg orally. Initial EEG (reported by Dr. Bianchi) was abnormal, due to background slowing, suggestive of moderate encephalopathy. There appears to be questionable sharp activity over the left temporal more than central, that can possibly increase risk for focal delay. But no clear discharges and no seizures noted during the study. Clinical correlation is recommended. Repeat, prolonged EEG for 1 hour 01/29/2024, was abnormal due to background slowing of mild to moderate degree. This is suggestive of generalized cerebral dysfunction as can be seen with toxic metabolic encephalopathy or related to diffuse structural brain abnormality. Clinical correlation is recommended. No epileptiform activity was seen. No electrographic seizure was recorded. When compared to the EEG from 01/25/2024, the background has improved. May consider repeating EEG on Sunday, as patient is now off Vimpat. Patient never had any clinical seizure. We will stop Vimpat. Carotid Doppler revealed < 50% stenosis of bilateral carotid bifurcation. Antegrade flow in both vertebral arteries. MRI brain without contrast revealed no evidence of intracranial mass or acute/subacute infarct. Nonspecific white matter changes, likely secondary to small vessel ischemic disease. I personally reviewed MRI, agree with the findings. Psychiatry is consulted. No evidence of UTI, ceftriaxone discontinued. Consulted [employer] INSPECTOR. Will defer the rest of medical management to primary team and other specialist. Recommend patient to follow-up with neurologist outpatient in [address] Walker Bianchi to resume neurology service over the weekend. Addendum (03/03/2024): Lead level 1.3, normal NMDA antibodies < 1:10, negative Anti-Hu Antibodies negative West Nile virus antibodies negative.
[2024-02-02 11:05] LABS: BUN/Creat Ratio 5.78 Ratio (12.00-20.00); Blood Urea Nitrogen 5.2 mg/dL (9.0-27.0); Calcium 9.4 mg/dL (8.7-10.3); Carbon Dioxide 22.6 mmol/L (21.6-31.8); Chloride 110 mmol/L (96-109); Glucose 94 mg/dL (70-110); Potassium 3.7 mmol/L (3.5-5.5); Sodium 143 mmol/L (135-145)
--- NOTE | 2024-02-02 13:39 | P.PN ---
Subjective Progress Note Date: 02/02/24 This is a 73-year-old female with past medical history significant for hypothyroidism, osteoarthritis anxiety, depression, gastroesophageal reflux disease brought into the ER with altered mental status, confusion, weakness. Patient reports she had not been feeling well for the last couple of days, denied confusion reports she knew what she wanted to say but was unable to get the words out appropriately. ER reports patient was found by neighbors as she was wandering and appeared confused-at her normal baseline. Imaging currently unavailable. Vital signs stable. Denies chest pain, palpitations or shortness of breath. Afebrile, WBC 11.2. Hemoglobin, platelets, INR within normal limits. Sodium 136, potassium 3.5, bicarb 24, BUN 14, creatinine 1.49 magnesium 2.2, mildly elevated AST, ALT troponins negative x 1, UA reporting rare bacteria, toxicology screen reporting serum alcohol less than 10. Telemetry bedside monitor sinus rhythm. 01/29/2024 completed lumbar puncture with neurology yesterday. CSF reported clear, colorless, total protein 76, glucose 67. CSF culture pending. lithium level on admission 1.8, decreased to 0.8. reports she still continues to feel "fuzzy, unsure". Denies lightheadedness dizziness or focal deficits. Reports vision clear. Vitamin B12 less than 150 and started on IV push B12. Afebrile. 01/30/2024 alert and oriented x 3, scheduled for continuous prolonged EEG this afternoon. Sitter at bedside. Denies headache. Denies blurred vision. CSF pathology pending. Alert and oriented x 3, but states that her "processing" takes a little longer. 01/31/2024 prolonged EEG completed yesterday reporting abnormal due to background slowing of moderate degree, suggestive of generalized cerebral dysfunction as seen with toxic metabolic encephalopathy or related to diffuse structural brain abnormality. No epileptiform activity was seen, no electrographic seizure recorded. Questioned patient about her 17 siblings. Asked her to name her siblings, she experienced difficulty recalling their names- only able to name 1. CSF aerobic culture reported no growth after 48 hours, Gram stain reported no polymorphonuclear leukocytes, no organisms seen. Cerebrospinal fluid cytology reported hypocellular specimen with scattered mature lymphocytes, no cytologically malignant cells identified. CSF West Nile virus pending. NMDA antibodies pending. [place] levels 1.8, 0.8, 0.5. 02/01/24 less confused, sitter removed yesterday .speech fluent yet varying degrees of responses expressed, delayed at times/impaired cognitive processing persists. reports difficulty falling asleep. Denies depression or anxiety, denies fear. Denies headache, blurred vision. Denies lightheadedness, or dizziness. Denies nausea or vomiting. 02/01. Patient seen and examined. Answering question appropriately. Denies any acute distress. Vital signs stable REVIEW OF SYSTEMS: CONSTITUTIONAL: No fever, no malaise,. CARDIOVASCULAR: No chest pain, no palpitations, no syncope. PULMONARY: No shortness of breath, no cough, GASTROINTESTINAL: No diarrhea, no nausea, no vomiting, no abdominal pain. NEUROLOGICAL: No headaches, no weakness, PHYSICAL EXAMINATION: GENERAL: The patient is alert, not in any acute distress. Well developed, well nourished. HEENT: Pupils are round and equally reacting to light. EOMI. No scleral icterus. No conjunctival pallor. Normocephalic, atraumatic. No pharyngeal erythema. No thyromegaly. CARDIOVASCULAR: S1 and S2 present. No murmurs, rubs, or gallops. PULMONARY: Chest is clear to auscultation, no wheezing or crackles. ABDOMEN: Soft, nontender, nondistended, normoactive bowel sounds. No palpable organomegaly. MUSCULOSKELETAL: No joint swelling or deformity. EXTREMITIES: No cyanosis, clubbing, or pedal edema. NEUROLOGICAL: Gross neurological examination did not reveal any focal deficits. SKIN: No rashes. Assessment and plan Altered mental status, metabolic encephalopathy with slurred speech, expressive aphasia, possible TIA, possibly related to lithium toxicity, vitamin B12 deficiency. Dehydration, improving with IV fluid hydration Acute renal injury secondary to the above Hypothyroidism Gastroesophageal reflux disease Hyperlipidemia Anxiety Depression, on lithium Vitamin B12 deficiency Monitor vital signs Monitor CBC Monitor CMP Continue vitamin B12 Continue Synthroid Continue lithium Neurology following Labs and medication were reviewed.. Continue same treatment. Continue with symptomatic treatment. Resume home medication. Monitor labs and vitals. DVT a nd GI prophylaxis. Further recommendations as per clinical course of the patient Dictation was produced using [employer] dictation software. please excuse any grammatical, word or spelling errors. Objective - Vital Signs Vital signs: Vital Signs Temp 98.4 F 02/02/24 12:53 Pulse 76 02/02/24 12:53 Resp 16 02/02/24 12:53 BP 110/66 02/02/24 12:53 Pulse Ox 97 02/02/24 12:53 FiO2 Intake & Output 02/01/24 02/02/24 02/02/24 18:59 06:59 18:59 Intake Total 540 240 Balance 540 240 Intake: Oral 540 240 Other: # Voids 1 4 # Bowel Movements 1 - Labs CBC & Chem 7: 01/28/24 03:22 02/02/24 03:33 Labs: Abnormal Lab Results - Last 24 Hours (Table) 02/02/24 Range/Units 03:33 Chloride 110 H (96-109) mmol/L BUN 5.2 L (9.0-27.0) mg/dL BUN/Creatinine Ratio 5.78 L (12.00-20.00) Ratio Microbiology - Last 24 Hours (Table) 01/28/24 18:15 CSF Gram Stain - Final Cerebral Spinal Fluid CSF Culture - Final
[2024-02-03 01:48] VITALS: RESP 16
--- NOTE | 2024-02-03 13:41 | P.PN ---
Subjective Progress Note Date: 02/03/24 This is a 73-year-old female with past medical history significant for hypothyroidism, osteoarthritis anxiety, depression, gastroesophageal reflux disease brought into the ER with altered mental status, confusion, weakness. Patient reports she had not been feeling well for the last couple of days, denied confusion reports she knew what she wanted to say but was unable to get the words out appropriately. ER reports patient was found by neighbors as she was wandering and appeared confused-at her normal baseline. Imaging currently unavailable. Vital signs stable. Denies chest pain, palpitations or shortness of breath. Afebrile, WBC 11.2. Hemoglobin, platelets, INR within normal limits. Sodium 136, potassium 3.5, bicarb 24, BUN 14, creatinine 1.49 magnesium 2.2, mildly elevated AST, ALT troponins negative x 1, UA reporting rare bacteria, toxicology screen reporting serum alcohol less than 10. Telemetry bedside monitor sinus rhythm. 01/29/2024 completed lumbar puncture with neurology yesterday. CSF reported clear, colorless, total protein 76, glucose 67. CSF culture pending. lithium level on admission 1.8, decreased to 0.8. reports she still continues to feel "fuzzy, unsure". Denies lightheadedness dizziness or focal deficits. Reports vision clear. Vitamin B12 less than 150 and started on IV push B12. Afebrile. 01/30/2024 alert and oriented x 3, scheduled for continuous prolonged EEG this afternoon. Sitter at bedside. Denies headache. Denies blurred vision. CSF pathology pending. Alert and oriented x 3, but states that her "processing" takes a little longer. 01/31/2024 prolonged EEG completed yesterday reporting abnormal due to background slowing of moderate degree, suggestive of generalized cerebral dysfunction as seen with toxic metabolic encephalopathy or related to diffuse structural brain abnormality. No epileptiform activity was seen, no electrographic seizure recorded. Questioned patient about her 17 siblings. Asked her to name her siblings, she experienced difficulty recalling their names- only able to name 1. CSF aerobic culture reported no growth after 48 hours, Gram stain reported no polymorphonuclear leukocytes, no organisms seen. Cerebrospinal fluid cytology reported hypocellular specimen with scattered mature lymphocytes, no cytologically malignant cells identified. CSF West Nile virus pending. NMDA antibodies pending. [place] levels 1.8, 0.8, 0.5. 02/01/24 less confused, sitter removed yesterday .speech fluent yet varying degrees of responses expressed, delayed at times/impaired cognitive processing persists. reports difficulty falling asleep. Denies depression or anxiety, denies fear. Denies headache, blurred vision. Denies lightheadedness, or dizziness. Denies nausea or vomiting. 02/01. Patient seen and examined. Answering question appropriately. Denies any acute distress. Vital signs stable 02/02. Patient seen and examined. Complaining of lethargic weakness. States she has been ambulating but gets tired easily. Denies any shortness of breath on exertion. Denies any chest pain. Vital signs stable REVIEW OF SYSTEMS: CONSTITUTIONAL: No fever, no malaise,. CARDIOVASCULAR: No chest pain, no palpitations, no syncope. PULMONARY: No shortness of breath, no cough, GASTROINTESTINAL: No diarrhea, no nausea, no vomiting, no abdominal pain. NEUROLOGICAL: No headaches, no weakness, PHYSICAL EXAMINATION: GENERAL: The patient is alert, not in any acute distress. Well developed, well nourished. HEENT: Pupils are round and equally reacting to light. EOMI. No scleral icterus. No conjunctival pallor. Normocephalic, atraumatic. No pharyngeal erythema. No thyromegaly. CARDIOVASCULAR: S1 and S2 present. No murmurs, rubs, or gallops. PULMONARY: Chest is clear to auscultation, no wheezing or crackles. ABDOMEN: Soft, nontender, nondistended, normoactive bowel sounds. No palpable organomegaly. MUSCULOSKELETAL: No joint swelling or deformity. EXTREMITIES: No cyanosis, clubbing, or pedal edema. NEUROLOGICAL: Gross neurological examination did not reveal any focal deficits. SKIN: No rashes. Assessment and plan Altered mental status, metabolic encephalopathy with slurred speech, expressive aphasia, possible TIA, possibly related to lithium toxicity, vitamin B12 deficiency. Dehydration, improving with IV fluid hydration Acute renal injury secondary to the above Hypothyroidism Gastroesophageal reflux disease Hyperlipidemia Anxiety Depression, on lithium Vitamin B12 deficiency Monitor vital signs Monitor CBC Monitor CMP Continue vitamin B12 Continue Synthroid Continue lithium Neurology following PT OT following Labs and medication were reviewed.. Continue same treatment. Continue with symptomatic treatment. Resume home medication. Monitor labs and vitals. DVT and GI prophylaxis. Further recommendations as per clinical course of the patient Dictation was produced using [employer] dictation software. please excuse any grammatical, word or spelling errors. Objective - Vital Signs Vital signs: Vital Signs Temp 98.3 F 02/03/24 12:40 Pulse 81 02/03/24 12:40 Resp 16 02/03/24 12:40 BP 152/81 02/03/24 12:40 Pulse Ox 97 02/03/24 12:40 FiO2 Intake & Output 02/02/24 02/03/24 02/03/24 18:59 06:59 18:59 Intake Total 1500 540 480 Balance 1500 540 480 Intake: Oral 1500 540 480 Other: Voiding Method Toilet # Voids 5 4 # Bowel Movements 1 - Labs CBC & Chem 7: 01/28/24 03:22 02/02/24 03:33
--- NOTE | 2024-02-04 10:31 | P.DS ---
Providers Date of admission: 01/24/24 18:09 Expected date of discharge: 02/04/24 Attending physician: Jose Miguel Lamas MD Consults: 01/24/24 18:07 Consult Physician Routine Consulting Provider: Walker Bianchi Consult Reason/Comments: ams Do you want consulting provider notified?: Yes Consult Physician Routine Consulting Provider: Harvey Gunderson Consult Reason/Comments: ams Do you want consulting provider notified?: Yes Primary care physician: Jose Miguel Lamas MD Hospital Course: Final Diagnoses: Altered mental status, metabolic encephalopathy, declining cognitive function with slurred speech, expressive aphasia, possible TIA, possibly related to lithium toxicity, vitamin B12 deficiency. Neurology workup so far reports negative. Brain MRI reported not acute , likely small vessel ischemic disease .Etiology remains unclear, patient has improved with IV fluid hydration, vitamin B12 supplementation and decreased dosing of lithium, therefore at this time suspect probably due to dehydration, vitamin B12 deficiency and lithium toxicity. Serum lead level pending with results to be faxed to PCP. Further heavy metal testing outpatient with PCP. Dehydration, improving with IV fluid hydration Acute renal injury secondary to the above, resolved Hypothyroidism Gastroesophageal reflux disease Hyperlipidemia Anxiety Depression, on lithium. [place] dose decreased. Vitamin B12 deficiency Hospital course:This is a 73-year-old female with past medical history significant for hypothyroidism, osteoarthritis anxiety, depression, gastroesophageal reflux disease brought into the ER with altered mental status, confusion, weakness. Patient reports she had not been feeling well for the last couple of days, denied confusion reports she knew what she wanted to say but was unable to get the words out appropriately. ER reports patient was found by neighbors as she was wandering and appeared confused-at her normal baseline. Imaging currently unavailable. Vital signs stable. Denies chest pain, palpitations or shortness of breath. Afebrile, WBC 11.2. Hemoglobin, platelets, INR within normal limits. Sodium 136, potassium 3.5, bicarb 24, BUN 14, creatinine 1.49 magnesium 2.2, mildly elevated AST, ALT troponins negative x 1, UA reporting rare bacteria, toxicology screen reporting serum alcohol less than 10. Telemetry bedside monitor sinus rhythm. 01/29/2024 completed lumbar puncture with neurology yesterday. CSF reported clear, colorless, total protein 76, glucose 67. CSF culture pending. lithium level on admission 1.8, decreased to 0.8. reports she still continues to feel "fuzzy, unsure". Denies lightheadedness dizziness or focal deficits. Reports vision clear. Vitamin B12 less than 150 and started on IV push B12. Afebrile. 01/30/2024 alert and oriented x 3, scheduled for continuous prolonged EEG this afternoon. Sitter at bedside. Denies headache. Denies blurred vision. CSF pathology pending. Alert and oriented x 3, but states that her "processing" takes a little longer. 01/31/2024 prolonged EEG completed yesterday reporting abnormal due to background slowing of moderate degree, suggestive of generalized cerebral dysfunction as seen with toxic metabolic encephalopathy or related to diffuse structural brain abnormality. No epileptiform activity was seen, no electrographic seizure recor ded. Questioned patient about her 17 siblings. Asked her to name her siblings, she experienced difficulty recalling their names- only able to name 1. CSF aerobic culture reported no growth after 48 hours, Gram stain reported no polymorphonuclear leukocytes, no organisms seen. Cerebrospinal fluid cytology reported hypocellular specimen with scattered mature lymphocytes, no cytologically malignant cells identified. CSF West Nile virus pending. NMDA antibodies pending. [place] levels 1.8, 0.8, 0.5. 02/01/24 less confused, sitter removed yesterday .speech fluent yet varying degrees of responses expressed, delayed at times/impaired cognitive processing persists. reports difficulty falling asleep. Denies depression or anxiety, denies fear. Denies headache, blurred vision. Denies lightheadedness, or dizziness. Denies nausea or vomiting. 02/04/2024 significant clinical improvement however patient still remains not at baseline. Speech fluent, yet impaired cognitive processing persists. Denies any chest pain, palpitations or shortness of breath. Denies lightheadedness or dizziness. Denies any focal deficits. Denies headache. Tolerating exertion well. Positive diet intake. Positive bowel movement last night. NMDA antibodies pending. Serum lead level pending. Vital signs stable, patient is eager to go home. Patient will be discharged home with family only, not home alone, in a stable condition with guarded prognosis, pending final clearance per neurology. Further heavy metal testing outpatient with PCP. The impression and plan of care has been dictated as directed. : I performed a history and examination of this patient, discussed the same with the dictator. I agree with the dictator's note ,documented as a scribe. Any additional findings or plans will be noted. Patient Condition at Discharge: Stable Plan - Discharge Summary Discharge Rx Participant: Yes New Discharge Prescriptions: New Cyanocobalamin [Vitamin B-12] 1,000 mcg PO DAILY #30 tab Ergocalciferol [Vitamin D2 (1250 Mcg = 66403 Iu)] 1,250 mcg PO Fr@0900 #30 cap Continue Dicyclomine [Bentyl] 20 mg PO TID PRN PRN Reason: IBS Levothyroxine Sodium [Synthroid] 175 mcg PO DAILY Changed [place] Carbonate 300 mg PO HS #0 Discontinued [place] Carbonate 600 mg PO HS Ergocalciferol [Vitamin D2 (DRISDOL)] 50,000 unit PO FR Discharge Medication List Dicyclomine [Bentyl] 20 mg PO TID PRN 08/07/23 [History] Levothyroxine Sodium [Synthroid] 175 mcg PO DAILY 01/24/24 [History] Cyanocobalamin [Vitamin B-12] 1,000 mcg PO DAILY #30 tab 02/04/24 [Rx] Ergocalciferol [Vitamin D2 (1250 Mcg = 73380 Iu)] 1,250 mcg PO Fr@0900 #30 cap 02/04/24 [Rx] [place] Carbonate 300 mg PO HS #0 02/04/24 [Rx] Follow up Appointment(s)/Referral(s): [facility] [Outside] - As Needed ([facility], [NON-STAFF] - As Needed Jose Miguel Lamas MD [Primary Care Provider] - 1 Week Alfredo Trejo DO [STAFF PHYSICIAN] - 2 Weeks Activity/Diet/Wound Care/Special Instructions: Fax final results of blood lead level to PCP, Dr. Jose Miguel Lamas. Further outpatient heavy metal testing in clinic with PCP. Discharge/Stand Alone Forms: Who Do I Call?, Community Resources, Help In The Home, Outpatient Counseling
[2024-02-04] MEDS: POTASSIUM CHLORIDE ER 20 MEQ TAB.ER PO STA (10:46)
--- NOTE | 2024-02-04 14:46 | P.PN ---
Subjective Progress Note Date: 02/04/24 I have seen the patient once during this admission but and that was on 01/25/2024 and then she was. By Dr. Olsen. Please refer to his note for further details. Altered mental status and she had multiple studies during this hospital visit which the CSF study was negative. Pending West Nile virus. The anti-NMDA antibody was ordered and pending. Patient stated that she thinks her altered mental status was likely due to her anxiety medication that was prescribed by her PCP and she thinks she overtook her medication. Also during this hospital visit her lithium level was elevated. Her mentation is drastically better according to the nurse and upon seeing her she denies of any headache any focal deficit. No further myoclonic jerks. Objective - Vital Signs Vital signs: Vital Signs Temp 97.6 F 02/04/24 13:15 Pulse 90 02/04/24 13:15 Resp 16 02/04/24 13:15 BP 119/79 02/04/24 13:15 Pulse Ox 94 L 02/04/24 13:15 FiO2 Intake & Output 02/03/24 02/04/24 02/04/24 18:59 06:59 18:59 Intake Total 2520 Balance 2520 Intake: Oral 2520 Other: Voiding Method Toilet # Voids 6 3 2 # Bowel Movements 2 - Exam General Patient is sitting up in bed and is not in acute distress Neuro the patient is awake alert oriented to self place and time. Is following simple commands. She is able to name objects correctly such as pen, watch and glasses. She is able to state state correctly. No aphasia no neglect. Moves around equal reactive to light. The pupils are round 4 mm bilaterally. Visual vega are full to confrontation. Extraocular movements intact no nystagmus. No facial weakness. No dysarthria Motor strength 5 out of 5 throughout - Labs CBC & Chem 7: 01/28/24 03:22 02/02/24 03:33 Assessment and Plan Assessment: * 73-year-old female, came with altered mental status, declining cognitive functions, myoclonic jerking for last 1-1/2 to 2 weeks likely due to toxic- metabolic encephalopathy ([place] toxicity and stated she overtook her anxiety medication recently)----Currently mentation is drastically better and is Oriented X4 and no focal deficits. MRI brain unremarkable for acute process and CSF study in unremarkable. Also has B12 deficiency which can cause cognitive dysfunction * History of hypothyroidism * [place] toxicity * Depression * Vitamin B12 deficiency Plan: Cerebrospinal fluid revealed colorless, clear, WBC count 0, total RBC 76, all fresh RBCs 100%. CSF protein 76/60, glucose is normal 67. CSF cytology revealed hypocellular specimen with scattered mature lymphocytes. No cytologically malignant cells. CSF viral panel came back negative. CSF West Nile virus pending. Await NMDA antibodies. Serum lead level being checked by PCP. TSH 0.061, with free T4 of 1.33. Vitamin B12 <150. [place] level 1.8, which is slightly elevated. [place] currently on hold. Repeat lithium level 0.5, which is subtherapeutic. Patient has severe vitamin B12 deficiency. Patient has received vitamin B12 injections daily for several days. Continue vitamin B12 1000 mcg orally. Initial EEG (reported by Dr. Bianchi) was abnormal, due to background slowing, suggestive of moderate encephalopathy. There appears to be questionable sharp activity over the left temporal more than central, that can possibly increase risk for focal delay. But no clear discharges and no seizures noted during the study. Clinical correlation is recommended. Repeat, prolonged EEG for 1 hour 01/29/2024, was abnormal due to background slowing of mild to moderate degree. This is suggestive of generalized cerebral dysfunction as can be seen with toxic metabolic encephalopathy or related to diffuse structural brain abnormality. Clinical correlation is recommended. No epileptiform activity was seen. No electrographic seizure was recorded. When compared to the EEG from 01/25/2024, the background has improved. Patient never had any clinical seizure. Vimpat stopped. Carotid Doppler revealed < 50% stenosis of bilateral carotid bifurcation. Antegrade flow in both vertebral arteries. MRI brain without contrast revealed no evidence of intracranial mass or acute /subacute infarct. Nonspecific white matter changes, likely secondary to small vessel ischemic disease. I personally reviewed MRI, agree with the findings. Psychiatry is consulted. No evidence of UTI, ceftriaxone discontinued. Consulted FAMILY SERVICE WORKER. Will defer the rest of medical management to primary team and other specialist. Recommend patient to follow-up with neurologist outpatient in 1 to 2 weeks. The plan discussed with the patient and her nurse. No further neurological workup. Will sign off. Please reconsult if needed. Time with Patient: Less than 30
[2024-02-05 12:36] VITALS: BP 136/83; PULSE 81; TEMP 98
== END 2024-02-05 14:30 | disposition home health service (06) | DRG 682 ==
LOC: EC 13:50 → 5NMEDONC 18:09
PROVIDERS: ADMIT Family Medicine; ATTEND Family Medicine
PROC: 009U3ZX Drainage of Spinal Canal, Percutaneous Approach, Diagnostic (ICD-10-PCS; principal; 2024-01-28)
DX: N17.9 Acute kidney failure, unspecified (principal); G92.8 Other toxic encephalopathy; F05 Delirium due to known physiological condition; E87.0 Hyperosmolality and hypernatremia; R47.01 Aphasia; G25.3 Myoclonus; F31.9 Bipolar disorder, unspecified; E03.9 Hypothyroidism, unspecified; I65.23 Occlusion and stenosis of bilateral carotid arteries; T43.591A Poisoning by other antipsychotics and neuroleptics, accidental (unintentional), initial encounter; E86.0 Dehydration; E78.5 Hyperlipidemia, unspecified; F41.9 Anxiety disorder, unspecified; K21.9 Gastro-esophageal reflux disease without esophagitis; R47.82 Fluency disorder in conditions classified elsewhere; G25.1 Drug-induced tremor; E53.8 Deficiency of other specified B group vitamins; R29.810 Facial weakness; W57.XXXA Bitten or stung by nonvenomous insect and other nonvenomous arthropods, initial encounter; Z79.890 Hormone replacement therapy; Z91.83 Wandering in diseases classified elsewhere; Z88.6 Allergy status to analgesic agent; Z87.19 Personal history of other diseases of the digestive system; Z79.899 Other long term (current) drug therapy
CPT/HCPCS: 36415; 70450; 70551; 71045; 80048; 80053; 80178; 80306; 80320; 81001; 82140; 82607; 82945; 83520; 83655; 83735; 84100; 84157; 84439; 84443; 84484; 85025; 85610; 85730; 86255; 87070; 87205; 87496; 87498; 87529; 87798; 88108; 89050; 93005; 93880; 94760; 95813; 95816; 96365; 99285

== ENCOUNTER → 2024-10-31 | Outpatient (CLI) | payer MEDICARE, OTHER ==
--- NOTE | 2024-10-31 10:37 | US ---
EXAMINATION TYPE: US arterial LE single level DATE OF EXAM: 10/31/2024 9:46 AM COMPARISONS: CT August 03, 2023. CLINICAL INDICATION: Female, 74 years old with history of I73.9 PERIPHERAL VASCULAR DISEASE, UNSPECIF IED; pain, tingling in legs TECHNIQUE: Systolic pressures were taken of the upper and lower extremity arteries with ankle-brachia l indices and toe brachial indices calculated bilaterally. History of: Smoker: No Hypertension: No Diabetic: No Hyperlipidemia: No TIA/CVA: No Previous Vascular Surgery: No CAD: No AR: No Vascular Ulcers: No Claudication: No Gangrene: No FINDINGS: Doppler Waveforms: Right: Multiphasic Left: Multiphasic Brachial Artery systolic pressure: Right: 147 Left: 156 Posterior Tibial artery systolic pressure: Right: 170 Left: 160 Dorsalis Pedis artery systolic pressure: Right: 164 Left: 160 Ankle-Brachial Indices: Right: 1.1 Left: 1.0 IMPRESSION: JEFF: Right: Normal 0.9 - 1.4, Recommendation: None Left: Normal 0.9 - 1.4, Recommendation: None [facility], , 10/31/2024 10:35 AM
== END | disposition home or self-care (01) ==
LOC: RADUSWWP 09:18
PROVIDERS: ATTEND Family Medicine
DX: I73.9 Peripheral vascular disease, unspecified (principal)
CPT/HCPCS: 93922